=== PATIENT | male | born 1940 | race Caucasian/White ===

== ENCOUNTER → 2022-01-25 | Outpatient (CLI) | payer BC, SELFPAY ==
[2022-01-25 14:06] LABS: Anion Gap 9 (5-15); BUN 47 mg/dL (7-18); BUN/Creat Ratio 21.7 RATIO (10-20); Calcium,Total 9.2 mg/dL (8.5-10.1); Chloride 104 mmol/L (98-107); Creatinine, Serum 2.17 mg/dL (0.70-1.30); EST Glomerular Filtration Rate 31 mL/min (>60); Est Glom Filt Rate - Afr Amer 38 mL/min (>60); Glucose 147 mg/dL (74-106); Potassium 4.3 mmol/L (3.5-5.1); Sodium Level 140 mmol/L (136-145)
== END | disposition home or self-care (01) ==
LOC: HHLAB 13:39
PROVIDERS: PCP Preventive Medicine Occupational Medicine; Referring Provider Preventive Medicine Occupational Medicine; Visit Provider Preventive Medicine Occupational Medicine
DX: E11.621 Type 2 diabetes mellitus with foot ulcer (principal); L97.511 Non-pressure chronic ulcer of other part of right foot limited to breakdown of skin; L03.115 Cellulitis of right lower limb
CPT/HCPCS: 80048

== ENCOUNTER 2022-01-28 13:45 | Outpatient (RCR) | payer BC, SELFPAY ==
[2022-01-14 13:27] VITALS: BP 124/62; PULSE 67; TEMP 36.1
--- NOTE | 2022-01-14 15:21 | HP.PCM_ITS ---
History of Present Illness Date of Service: 01/14/22 Chief Complaint: Swelling of legs and feet with open sores on lower legs b ilaterally History of Wound: Patient is 82 year old male who presents today for evaluation of sores that he has on his lower legs bilaterally and his bilateral lower leg edema. He states he has had these sores awhile. His states that he refuses to wear any type of compression and he has had the sores at least a few months. They haven't been putting much on them. His PCP referred him to the wound center for further evaluation. 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 He is unsure if he had CHF. He has had severe edema of his lower legs for the past couple years. He doesn't like to wear compression because it is difficult to wear shoes. He is wearing special shoes with velcro and his feet barely fit into them. He was hospitalized at [facility] [place] for a toe infection a couple months and he saw Dr. Fairchild there. He denies being told that he has lymphedema. He sleeps in a chair at home because it hurts his back to lay flat. Today he denies fever, chills, nausea, vomiting. He states his appetite is good. Progress of Wound: He has several areas on his legs bilaterally that have superficial ulcers that are weepy. These appear to be from his significant edema/lymphedema. He has ulcers on his left posterior superior leg and left posterior inferior leg, left anterior leg, right lateral ankle and he has an excoriated area on his buttock. [facility] Medical History History of malignant melanoma HTN (hypertension) Home Medications allopurinol 100 mg tablet 01/14/22 [History Last Taken Unknown] ascorbic acid (vitamin C) 500 mg tablet (Vitamin C) 500 mg PO BID 01/14/22 [History Last Taken Unknown] aspirin 81 mg tablet 81 mg PO DAILY 01/14/22 [History Last Taken Unknown] carvedilol 25 mg tablet 25 mg PO BID 01/14/22 [History Last Taken Unknown] doxazosin 8 mg tablet 8 mg PO DAILY 01/14/22 [History Last Taken Unknown] doxazosin 8 mg tablet mg 01/14/22 [History Last Taken Unknown] famotidine 40 mg tablet 40 mg PO BID 01/14/22 [History Last Taken Unknown] furosemide 40 mg/4 mL oral solution 20 mg PO BID 01/14/22 [History Last Taken Unknown] glucosamine-chondroitin 250 mg-200 mg tablet (Osteo Bi-Flex) 2 tab PO TID 01/14/22 [History Last Taken Unknown] insulin glargine 100 unit/mL subcutaneous cartridge 10 unit subcut BID 01/14/22 [History Last Taken Unknown] isosorbide dinitrate 40 mg capsule,extended release mg PO 01/14/22 [History Last Taken Unknown] levothyroxine 88 mcg/mL oral solution 88 mcg PO DAILY 01/14/22 [History Last Taken Unknown] losartan 100 mg-hydrochlorothiazide 25 mg tablet 1 tab PO DAILY 01/14/22 [History Last Taken Unknown] metformin 500 mg tablet 500 mg PO BID 01/14/22 [History Last Taken Unknown] ckfpuvic-xba-fgdnt acid 0.4 mg-lycopene 300 mcg-lutein 250 mcg tablet (Spectravite Adult 50 Plus) 1 tab PO DAILY 01/14/22 [History Last Taken Unknown] potassium chloride 20 mEq/15 mL oral liquid 01/14/22 [History Last Taken Unknown] simvastatin 20 mg tablet 20 mg PO DAILY 01/14/22 [History Last Taken Unknown] vitamin B complex 1 cap PO DAILY 01/14/22 [History Last Taken Unknown] Family History other other Surgical History History of cholecystectomy History of right knee joint replacement S/P CABG x 4 Prior Cardiac Testing/Procedures Prior Cardiac Testing/Procedures: CABG (x 4 2003) ROS Constitutional Constitutional: Denies chills, fever(s) or frequent falls Eyes Eyes: Reports requires corrective lenses ENT HEENT: Reports systems reviewed and no addt'l complaints, except as documented Cardiovascular Cardiovascular: Reports edema; Denies chest pain or chest pain with activity Respiratory/Chest Respiratory/Chest: Denies chest congestion, chest tightness or shortness of breath at rest Gastrointestinal Gastrointestinal: Denies diarrhea, nausea or vomiting Musculoskeletal Musculoskeletal: Reports back pain and stiffness Integumentary Integumentary: Reports wounds Neurologic Neurologic: Denies frequent falls Psychiatric Psychiatric: Reports none Vital Signs Vital Signs Vital Signs: 01/14/22 13:27 Temperature 97.0 F L Temperature Source Temporal Pulse Rate 67 Blood Pressure 124/62 H Blood Pressure Mean 82 Blood Pressure Source Monitor Blood Pressure Position Sitting Blood Pressure Location Right Arm Physical Exam Const alert and oriented x3 General Appearance: cooperative Orientation / Consciousness: awake HEENT normocephalic Lymph Lymphatic: lymphedema severe Resp normal respiratory effort and normal air movement Auscultation: clear to auscultation bilaterally Cardio regular rate and regular rhythm Peripheral Pulses: dorsalis pedis pulses present bilateral 1+ GI normal to inspection, nondistended, normoactive bowel sounds, soft to palpation and non-tender Back/Spine Back/Spine Narrative: Has back pain with movement, has difficulty laying flat due to pain Extremity normal capillary refill General Extremity: edema bilateral lower extremity (severe pitting edema/lymphed maryanne >+4. Ankle skin hangs over feet due to swelling) Details: severe (Severe bilateral lower extremity edema/lymphedema, legs are milding weeping. ) Skin Wound Narrative: He has several areas on his legs bilaterally that have superficial ulcers that are weepy. These appear to be from his significant edema/lymphedema. He has ulcers on his left posterior superior leg and left posterior inferior leg, left anterior leg, right lateral ankle and he has an excoriated area on his buttock. Neuro oriented x3 Psych thought process normal Debridement Note Debridement Note Wound debrided: posterior superior ulcer Laterality: Left Type of Debridement: Excisional debridement Anesthesia Used: 5% Lidocaine Gel Depth: Down to and including healthy tissue and in the subcutaneous layer Percentage of wound debrided: 100 Instrument Used: 5mm curette Tissue Removed: Non viable tissue and slough Severity: Fat Layer Exposed Amount of bleeding with debridement: Mild Bleeding Controlled with: Pressure Patient tolerated procedure: Patient tolerated procedure well Post-Debridement Measurements and Additional Note: Post-Debridement Measurements/Treatment KIRSTIN - Nurse 1 - General Ulcer Assessment Start: 01/14/22 13:26 Freq: Status: Active Protocol: JUANITO Activity Type Activity Date Activity User E-Sign Co-Sign Detail Recorded Client Recorded Date Recorded By Document 01/14/22 13:27 YOEL [id number] 01/14/22 13:41 YOEL 01/14/22 13:27 - Today's Visit Information Type of service Initial Visit Arrival Mode Ambulatory Patient Identification Verified (Name & Yes ) Vital Signs Temperature (97.8 F-99.1 F) 97.0 F L Temperature Source Temporal Pulse Rate (60-100) 67 Pulse Location Monitor Blood Pressure (90/60-120/80) 124/62 H Blood Pressure Mean 82 Source Monitor Position Sitting Blood Pressure Location Right Arm History Since Last Visit- (Skip if this is Patient's initial visit) Have you changed medications since your No last visit? Any new allergies or adverse reactions No Had a fall/change in ADL's that may No increase risk of falls Signs or symptoms of abuse and/or No neglect since last visit Have you been in the hospital since your No last visit? Has dressing in place as prescribed No Has compression in place as prescribed N/A Has offloadiing in place as prescribed N/A Experienced any changes in pain level or No management Left Footwear Regular Shoe Right Footwear Regular Shoe Pain Scale: 0-10 Numeric Is Patient Pain Free? Yes WC - Nurse 1 - General Ulcer Measurement Start: 01/14/22 13:26 Freq: Status: Active Protocol: Activity Type Activity Date Activity User E-Sign Co-Sign Detail Recorded Client Recorded Date Recorded By Document 01/14/22 13:27 YOEL [id number] 01/14/22 13:41 YOEL 01/14/22 13:27 Wound Center Nurse 1 #2 Left post lower extremity superior -Current Size (cm) - Length 3.6 -Current Size (cm) - Width 3 -Current Size (cm) - Depth 0.1 -Total Square Cm 10.8 -Exudate Amt Small -Exudate Type Serosanguineous -Wound Margin Distinct, Outline Attached -Granulation Amt Medium (34-66%) -Granulation Quality H. Rivera Colon -Necrosis Amt Small (1-33%) -Necrotic Tissue Type Adherent Slough -Texture (Felisa-wound Skin Appearance) Assessed, Scarring -Moisture (Felisa-wound Skin Appearance) No Abnormality, Assessed -Color (Felisa-wound Skin Appearance) No Abnormality, Assessed -Temperature (Felisa-wound Skin No Abnormality Appearance) (Pt Warm) -Tenderness on Palpation (Felisa-wound No Skin Appearance) -Ulcer Cleansing Rinsed/ Irrigated with Saline -Foul Odor after Cleansing No -Anesthetic Used 5% Lidocaine Gel #1 Left lateral moreira -Current Size (cm) - Length 1.6 -Current Size (cm) - Width 5 -Current Size (cm) - Depth 0.1 -Total Square Cm 8.0 -Exudate Amt Small -Exudate Type Serosanguineous -Wound Margin Distinct, Outline Attached -Granulation Amt Medium (34-66%) -Granulation Quality H. Rivera Colon -Necrosis Amt None Present (0 %) -Necrotic Tissue Type Adherent Slough -Texture (Felisa-wound Skin Appearance) Assessed, Scarring -Moisture (Felisa-wound Skin Appearance) No Abnormality, Assessed -Color (Felisa-wound Skin Appearance) No Abnormality, Assessed -Temperature (Felisa-wound Skin No Abnormality Appearance) (Pt Warm) -Tenderness on Palpation (Felisa-wound No Skin Appearance) -Ulcer Cleansing Rinsed/ Irrigated with Saline -Foul Odor after Cleansing No -Anesthetic Used 5% Lidocaine Gel Right Calf (cm) 47 Right Ankle (cm) 36 Left Calf (cm) 47.5 Left Ankle (cm) 37.5 WC - Nurse 2 - General Ulcer CM Notes Start: 01/14/22 13:26 Freq: Status: Active Protocol: Activity Type Activity Date Activity User E-Sign Co-Sign Detail Recorded Client Recorded Date Recorded By Document 01/14/22 13:59 [id number] 01/14/22 14:22 01/14/22 13:59 Wound Center Nurse 2 4-left posterior inferior leg -Time 14:09 -Correct Patient Yes -Correct Side, Site, Position Yes -Correct Procedure Yes -Procedure Performed Yes -Type of Procedure Debridement -Clinical Debridement Subcutaneous -Tissue Removed Subcutaneous -Post Debridement (cm) - Length 3.5 -Post Debridement (cm) - Width 5.5 -Post Debridement (cm) - Depth 0.1 -Total Square (Post) (cm) 19.25 -Area of Debridement (cm) - Length 3.5 -Area of Debridement (cm) - Width 5.5 -Total Square (Area) (cm) 19.25 -Tunneling No -Undermining/Tunneling No -Circular Undermining No -Wound/Ulcer Outcome Not Healed -Ulcer Cleansing Rinsed/ Irrigated with Saline -Foul Odor after Cleansing No -Bioengineered Tissue No -Bleeding Controlled with Pressure -Treatment Response Procedure Tolerated Well -Offloading No -Debridement - Subq, 1st 20sq cm No 3-right lateral ankle -Time 14:10 -Correct Patient Yes -Correct Side, Site, Position Yes -Correct Procedure Yes -Procedure Performed Yes -Type of Procedure Debridement -Clinical Debridement Epidermis / Dermis -Tissue Removed Epidermis, Dermis -Post Debridement (cm) - Length 4.0 -Post Debridement (cm) - Width 3.5 -Post Debridement (cm) - Depth 0.1 -Total Square (Post) (cm) 14.00 -Area of Debridement (cm) - Length 4.0 -Area of Debridement (cm) - Width 3.5 -Total Square (Area) (cm) 14.00 -Tunneling No -Undermining/Tunneling No -Circular Undermining No -Wound/Ulcer Outcome Not Healed -Ulcer Cleansing Rinsed/ Irrigated with Saline -Foul Odor after Cleansing No -Bioengineered Tissue No -Bleeding Controlled with Pressure -Treatment Response Procedure Tolerated Well -Offloading No -Debridement - Open, 1st 20sq cm Yes #2 Left post lower extremity superior -Time 14:04 -Correct Patient Yes -Correct Side, Site, Position Yes -Correct Procedure Yes -Procedure Performed Yes -Type of Procedure Debridement -Clinical Debridement Subcutaneous -Tissue Removed Subcutaneous -Post Debridement (cm) - Length 4.0 -Post Debridement (cm) - Width 3.6 -Post Debridement (cm) - Depth 0.1 -Total Square (Post) (cm) 14.40 -Area of Debridement (cm) - Length 4.0 -Area of Debridement (cm) - Width 3.6 -Total Square (Area) (cm) 14.40 -Tunneling No -Undermining/Tunneling No -Circular Undermining No -Wound/Ulcer Outcome Not Healed -Ulcer Cleansing Rinsed/ Irrigated with Saline -Foul Odor after Cleansing No -Bioengineered Tissue No -Bleeding Controlled with Pressure -Treatment Response Procedure Tolerated Well -Offloading No -Debridement - Subq, 1st 20sq cm No #1 Left lateral moreira -Time 14:16 -Correct Patient Yes -Correct Side, Site, Position Yes -Correct Procedure Yes -Procedure Performed Yes -Type of Procedure Debridement -Clinical Debridement Epidermis / Dermis -Tissue Removed Epidermis, Dermis -Post Debridement (cm) - Length 3.3 -Post Debridement (cm) - Width 2.3 -Post Debridement (cm) - Depth 0.1 -Total Square (Post) (cm) 7.59 -Area of Debridement (cm) - Length 3.3 -Area of Debridement (cm) - Width 2.3 -Total Square (Area) (cm) 7.59 -Tunneling No -Undermining/Tunneling No -Circular Undermining No -Wound/Ulcer Outcome Not Healed -Ulcer Cleansing Rinsed/ Irrigated with Saline -Foul Odor after Cleansing No -Bioengineered Tissue No -Bleeding Controlled with Pressure -Treatment Response Procedure Tolerated Well -Offloading No -Debridement - Open, 1st 20sq cm No Pain Scale: 0-10 Numeric Is Patient Pain Free? Yes Additional Wound Wound debrided: posterior inferior ulcer Laterality: Left Type of Debridement: Selective debridement Anesthesia Used: 5% Lidocaine Gel Depth: Down to and including healthy tissue and in the subcutaneous layer Percentage of wound debrided: 80 Tissue Removed: Removed moistened non viable tissue with gauze, very superfical Severity: Limited To Skin Breakdown Amount of bleeding with debridement: None Patient tolerated procedure: Patient tolerated procedure well Additional Wound Wound debrided: anterior leg ulcer Laterality: Left Type of Debridement: Excisional debridement Anesthesia Used: 5% Lidocaine Gel Depth: Down to and including healthy tissue and in the subcutaneous layer Percentage of wound debrided: 100 Instrument Used: 5mm curette Tissue Removed: Non viable tissue and slough Severity: Fat Layer Exposed Amount of bleeding with debridement: Mild Bleeding Controlled with: Pressure and Compression and gauze Patient tolerated procedure: Patient tolerated procedure well Additional Wound Wound debrided: Lateral ankle ulcer Laterality: Right Type of Debridement: Selective debridement Anesthesia Used: 5% Lidocaine Gel Depth: Down to and including healthy tissue and in the subcutaneous layer Percentage of wound debrided: 80 Tissue Removed: Removed non viable tissue with pickups and gauze over 80%, superficial ulce Severity: Limited To Skin Breakdown Amount of bleeding with debridement: Mild Bleeding Controlled with: Pressure Patient tolerated procedure: Patient tolerated procedure well Additional Wound Wound debrided: Buttock excoriation- no debridement Charges/Coding Addendum Addendum: [id number] and [id number] x 1 (selective debridement) for left posterior inferior leg and right lateral ankle Visit Charges Office Visits / Consults: 88896 OV L3 New (25 modifier) Procedures Integumentary [id number]: [id number] Madyson subq tissue 20 sq cm/< (Left posterior superior leg, left anterior leg,) Add On Codes: [id number] Madyson subq tissue add-on Assessment/Plan Assessment/Plan (1) Ulcer of left lower leg: CODE(S): L97.929 - Non-pressure chronic ulcer of unspecified part of left lower leg with unspecified severity (2) Diabetic ulcer of right ankle: CODE(S): E11.622 - Type 2 diabetes mellitus with other skin ulcer; L97.319 - Non-pressure chronic ulcer of right ankle with unspecified severity (3) Edema of both lower extremities: CODE(S): R60.0 - Localized edema (4) Lymphedema of both lower extremities: CODE(S): I89.0 - Lymphedema, not elsewhere classified (5) Buttock abrasion: CODE(S): S30.810A - Abrasion of lower back and pelvis, initial encounter (6) Diabetes mellitus type 2 in obese: CODE(S): E11.69 - Type 2 diabetes mellitus with other specified complication; E66.9 - Obesity, unspecified PLAN: Patient was evaluated at the wound healing center today. He has several ulcers that had either a subcutaneous or selective debridement performed today, which he tolerated well. Wound care to all the ulcers is collagen hydrogel covered with dry gauze daily after washing legs with soap and water and drying well. Stressed the importance of compression. Patient has severe lower extremity edema bilaterally. It is actually more of a lymphedema than just pitting edema. Patient states he does not want to wear compression because he is unable to get his shoes on if he does. We discussed the importance of having compression to help decrease some of his edema. He sleeps in a chair because of his back problems, therefore that also contributes to his edema. Stressed the importance of elevating legs and lying flat several times throughout the day to help decrease the swelling. Will place GLADYS wraps on bilateral feet/ankles and lower legs to help with compression. Encourage elevate legs. He is not really interested in wearing compression, but I stressed the importance of wearing it because these ulcers are caused from the severity of his edema. Instructed him that if he wears compression, it may increase how much he needs to void as he excretes the fluid. Will order venous and arterial studies to evaluate blood flow to help determine the type of compression. Will consider referring him to OT for the lymphedema specialist, after the vascular studies obtained. Follow up one week.
[2022-01-21 14:07] VITALS: BP 137/65; PULSE 69; RESP 20; TEMP 36.6
--- NOTE | 2022-01-21 16:38 | PCM.WC.PN ---
History of Present Illness Date of Service: 01/21/22 Chief Complaint: Swelling of legs and feet with open sores on lower legs bilaterally History of Wound: Patient is 82 year old male who presents today for evaluation of sores that he has on his lower legs bilaterally and his bilateral lower leg edema. He states he has had these sores awhile. His states that he refuses to wear any type of compression and he has had the sores at least a few months. They haven't been putting much on them. His PCP referred him to the wound center for further evaluation. 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 He is unsure if he had CHF. He has had severe edema of his lower legs for the past couple years. He doesn't like to wear compression because it is difficult to wear shoes. He is wearing special shoes with velcro and his feet barely fit into them. He was hospitalized at [facility] for a toe infection a couple months and he saw Dr. Fairchild there. He denies being told that he has lymphedema. He sleeps in a chair at home because it hurts his back to lay flat. Wound care - Collagen hydrogel to the ulcerated areas covered with gauze daily. MANDEEP wraps for compression. He is wearing post surgical shoes so his feet can have compression and fit into a shoe. Today he denies fever, chills, nausea, vomiting. He states his appetite is good. Progress of Wound: He has several areas on his legs bilaterally that have superficial ulcers that have mildly improved. He is wearing the compression and his legs and feet bilaterally have less edema. He has ulcers on his left posterior superior leg and left posterior inferior leg, left anterior leg, right lateral ankle and he has an excoriated area on his buttock. Objective Data Objective Data Vital Signs: Vital Signs Temp Pulse Resp BP 98 F 69 20 H 137/65 H 01/21/22 14:07 01/21/22 14:07 01/21/22 14:07 01/21/22 14:07 Charges/Coding Procedures Integumentary [id number]: [id number] Madyson subq tissue 20 sq cm/< Add On Codes: [id number] Madyson subq tissue add-on (x1) Physical Exam Const alert and oriented x3 General Appearance: cooperative Orientation / Consciousness: awake HEENT normocephalic Lymph Lymphatic: lymphedema severe Resp normal respiratory effort Cardio regular rate GI GI Narrative: Abdomen appears distended, but patient states it is not. Now that he is wearing compression on lower extremities, this could be increased edema in abdomen. Extremity normal capillary refill General Extremity: edema bilateral lower extremity (severe pitting edema/lymphedema +4, but has decreased since starting to wear MANDEEP wraps for compression) Details: severe (Severe bilateral lower extremity edema/lymphedema, legs are milding weeping. ) Skin Wound Narrative: He has ulcers on his left posterior superior leg and left posterior inferior leg, left anterior leg and right lateral ankle. The excoriated area on his buttock has improved. Psych thought process normal Appearance: grossly normal Debridement Note Debridement Note Wound debrided: posterior superior ulcer Laterality: Left Type of Debridement: Excisional debridement Anesthesia Used: 5% Lidocaine Gel Depth: Down to and including healthy tissue and in the subcutaneous layer Percentage of wound debrided: 100 Instrument Used: 5mm curette Tissue Removed: Non viable tissue and slough Severity: Fat Layer Exposed Amount of bleeding with debridement: Mild Bleeding Controlled with: Pressure Patient tolerated procedure: Patient tolerated procedure well Post-Debridement Measurements and Additional Note: Post-Debridement Measurements/Treatment - Nurse 1 - General Ulcer Assessment Start: 01/14/22 13:26 Freq: Status: Active Protocol: JUANITO Activity Type Activity Date Activity User E-sign Co-sign Detail Recorded Client Recorded Date Recorded By Document 01/14/22 13:27 KR [id number] 01/14/22 13:41 KR Document 01/21/22 14:07 DL [id number] 01/21/22 14:23 DL 01/14/22 01/21/22 13:27 14:07 - Today's Visit Information Type of service Initial Visit Follow-up Visit (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/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 ) Arrival Mode Ambulatory Ambulatory Transfer Assistance None Patient Identification Verified (Name & Yes Yes ) Patient Requires Transmission-Based No Precautions Vital Signs Temperature (97.8 F-99.1 F) 97.0 F L 98 F Temperature Source Temporal Temporal Pulse Rate (60-100) 67 69 Pulse Location Monitor Monitor Respiratory Rate (12-18) 20 H Respiratory rate source Observation Blood Pressure (90/60-120/80) 124/62 H 137/65 H Blood Pressure Mean (mm Hg) 82 89 Source Monitor Monitor Position Sitting Blood Pressure Location Right Arm History Since Last Visit- (Skip if this is Patient's initial visit) Have you changed medications since your No No last visit? Any new allergies or adverse reactions No No Had a fall/change in ADL's that may No No increase risk of falls Signs or symptoms of abuse and/or No No neglect since last visit Have you been in the hospital since your No No last visit? Has dressing in place as prescribed No Yes Has compression in place as prescribed N/A Yes Has offloadiing in place as prescribed N/A Yes Experienced any changes in pain level or No No management Left Footwear Regular Shoe Surgical Shoe with pressure relief insole Right Footwear Regular Shoe Surgical Shoe with pressure relief insole Pain Scale: 0-10 Numeric Is Patient Pain Free? Yes Yes WC - Nurse 1 - General Ulcer Measurement Start: 01/14/22 13:26 Freq: Status: Active Protocol: Activity Type Activity Date Activity User E-sign Co-sign Detail Recorded Client Recorded Date Recorded By Document 01/14/22 13:27 KR [id number] 01/14/22 13:41 KR Document 01/21/22 14:07 DL [id number] 01/21/22 14:23 DL 01/14/22 01/21/22 13:27 14:07 Wound Center Nurse 1 4-left posterior inferior leg -Current Size (cm) - Length 0.5 -Current Size (cm) - Width 0.5 -Current Size (cm) - Depth 0.1 -Total Square Cm 0.25 -Photo Taken No -Exudate Amt Small -Wound Margin Flat & Intact -Granulation Amt Small (1-33%) -Granulation Quality [place] -Necrotic Tissue Type Adherent Slough -Structure Exposed N/A -Texture (Felisa-wound Skin Appearance) Localized Edema ,Scarring -Moisture (Felisa-wound Skin Appearance) Dry/Scaly -Color (Felisa-wound Skin Appearance) Hemosiderin Staining -Temperature (Felisa-wound Skin No Abnormality Appearance) (Pt Warm) -Tenderness on Palpation (Felisa-wound No Skin Appearance) -Ulcer Cleansing Rinsed/ Irrigated with Saline -Foul Odor after Cleansing No -Anesthetic Used 5% Lidocaine Gel 3-right lateral ankle -Current Size (cm) - Length 3 -Current Size (cm) - Width 4.4 -Current Size (cm) - Depth 0.1 -Total Square Cm 13.2 -Photo Taken No -Exudate Amt Small -Exudate Type Serosanguineous -Wound Margin Thickened -Granulation Amt Large (67-100%) -Granulation Quality Pale,[place] -Necrosis Amt Small (1-33%) -Necrotic Tissue Type Adherent Slough -Structure Exposed N/A -Texture (Felisa-wound Skin Appearance) Localized Edema ,Scarring -Moisture (Felisa-wound Skin Appearance) No Abnormality -Color (Felisa-wound Skin Appearance) No Abnormality -Temperature (Felisa-wound Skin No Abnormality Appearance) (Pt Warm) -Tenderness on Palpation (Felisa-wound No Skin Appearance) -Ulcer Cleansing Rinsed/ Irrigated with Saline -Foul Odor after Cleansing No -Anesthetic Used 4% Lidocaine Solution #2 Left post lower extremity superior -Current Size (cm) - Length 3.6 0.1 -Current Size (cm) - Width 3 0.1 -Current Size (cm) - Depth 0.1 0.1 -Total Square Cm 10.8 0.01 -Photo Taken No -Exudate Amt Small None Present -Exudate Type Serosanguineous -Wound Margin Distinct, Thickened Outline Attached -Granulation Amt Medium (34-66%) Large (67-100%) -Granulation Quality [place] Pale -Necrosis Amt Small (1-33%) None Present (0 %) -Necrotic Tissue Type Adherent Slough -Structure Exposed N/A -Texture (Felisa-wound Skin Appearance) Assessed, Localized Edema Scarring ,Scarring -Moisture (Felisa-wound Skin Appearance) No Abnormality, Dry/Scaly Assessed -Color (Felisa-wound Skin Appearance) No Abnormality, Hemosiderin Assessed Staining -Temperature (Felisa-wound Skin No Abnormality No Abnormality Appearance) (Pt Warm) (Pt Warm) -Tenderness on Palpation (Felisa-wound No No Skin Appearance) -Ulcer Cleansing Rinsed/ Rinsed/ Irrigated with Irrigated with Saline Saline -Foul Odor after Cleansing No No -Anesthetic Used 5% Lidocaine 4% Lidocaine Gel Solution #1 Left lateral moreira -Current Size (cm) - Length 1.6 0.1 -Current Size (cm) - Width 5 0.1 -Current Size (cm) - Depth 0.1 0.1 -Total Square Cm 8.0 0.01 -Photo Taken No -Exudate Amt Small None Present -Exudate Type Serosanguineous -Wound Margin Distinct, Thickened Outline Attached -Granulation Amt Medium (34-66%) Large (67-100%) -Granulation Quality [place] Pale -Necrosis Amt None Present (0 None Present (0 %) %) -Necrotic Tissue Type Adherent Slough -Structure Exposed N/A -Texture (Felisa-wound Skin Appearance) Assessed, Localized Edema Scarring ,Scarring -Moisture (Felisa-wound Skin Appearance) No Abnormality, Dry/Scaly Assessed -Color (Felisa-wound Skin Appearance) No Abnormality, Hemosiderin Assessed Staining -Temperature (Felisa-wound Skin No Abnormality No Abnormality Appearance) (Pt Warm) (Pt Warm) -Tenderness on Palpation (Felisa-wound No No Skin Appearance) -Ulcer Cleansing Rinsed/ Rinsed/ Irrigated with Irrigated with Saline Saline -Foul Odor after Cleansing No No -Anesthetic Used 5% Lidocaine 5% Lidocaine Gel Gel Right Calf (cm) 47 44 Right Ankle (cm) 36 34 Left Calf (cm) 47.5 50.5 Left Ankle (cm) 37.5 34.5 WC - Nurse 2 - General Ulcer CM Notes Start: 01/14/22 13:26 Freq: Status: Active Protocol: Activity Type Activity Date Activity User E-sign Co-sign Detail Recorded Client Recorded Date Recorded By Document 01/14/22 13:59 [id number] 01/14/22 14:22 JF Edit Result 01/14/22 13:59 JF (1) [id number] 01/15/22 07:21 PL Edit Result 01/14/22 13:59 JF (2) [id number] 01/15/22 07:30 PL Document 01/21/22 15:00 [id number] 01/21/22 15:15 JF (1) 4-left posterior inferior leg - Debridement, SubQ, ea addt'l 20sq cm => 1 or part thereof 3-right lateral ankle - Debridement, Open, ea addt'l 20sq cm => 1 or part thereof (2) #2 Left post lower extremity superior - Debridement - Subq, 1st 20sq cm No => Yes 01/14/22 01/21/22 13:59 15:00 Wound Center Nurse 2 4-left posterior inferior leg -Time 14:09 15:09 -Correct Patient Yes Yes -Correct Side, Site, Position Yes Yes -Correct Procedure Yes Yes -Procedure Performed Yes Yes -Type of Procedure Debridement Debridement -Clinical Debridement Subcutaneous Subcutaneous -Tissue Removed Subcutaneous Subcutaneous -Post Debridement (cm) - Length 3.5 0.8 -Post Debridement (cm) - Width 5.5 0.5 -Post Debridement (cm) - Depth 0.1 0.1 -Total Square (Post) (cm) 19.25 0.40 -Area of Debridement (cm) - Length 3.5 0.8 -Area of Debridement (cm) - Width 5.5 0.5 -Total Square (Area) (cm) 19.25 0.40 -Tunneling No No -Undermining/Tunneling No No -Circular Undermining No No -Wound/Ulcer Outcome Not Healed Not Healed -Ulcer Cleansing Rinsed/ Rinsed/ Irrigated with Irrigated with Saline Saline -Foul Odor after Cleansing No No -Bioengineered Tissue No No -Bleeding Controlled with Pressure Pressure -Treatment Response Procedure Procedure Tolerated Well Tolerated Well -Offloading No No -Debridement - Subq, 1st 20sq cm No Yes -Debridement, SubQ, ea addt'l 20sq cm 1 1 or part thereof 3-right lateral ankle -Time 14:10 15:03 -Correct Patient Yes Yes -Correct Side, Site, Position Yes Yes -Correct Procedure Yes Yes -Procedure Performed Yes Yes -Type of Procedure Debridement Debridement -Clinical Debridement Epidermis / Subcutaneous Dermis -Tissue Removed Epidermis, Subcutaneous Dermis -Post Debridement (cm) - Length 4.0 4.5 -Post Debridement (cm) - Width 3.5 5.5 -Post Debridement (cm) - Depth 0.1 0.1 -Total Square (Post) (cm) 14.00 24.75 -Area of Debridement (cm) - Length 4.0 4.5 -Area of Debridement (cm) - Width 3.5 5.5 -Total Square (Area) (cm) 14.00 24.75 -Tunneling No No -Undermining/Tunneling No No -Circular Undermining No No -Wound/Ulcer Outcome Not Healed Not Healed -Ulcer Cleansing Rinsed/ Rinsed/ Irrigated with Irrigated with Saline Saline -Foul Odor after Cleansing No No -Bioengineered Tissue No No -Bleeding Controlled with Pressure Pressure -Treatment Response Procedure Procedure Tolerated Well Tolerated Well -Offloading No No -Debridement - Open, 1st 20sq cm Yes -Debridement, Open, ea addt'l 20sq cm 1 or part thereof -Debridement - Subq, 1st 20sq cm No #2 Left post lower extremity superior -Time 14:04 15:10 -Correct Patient Yes Yes -Correct Side, Site, Position Yes Yes -Correct Procedure Yes Yes -Procedure Performed Yes Yes -Type of Procedure Debridement Debridement -Clinical Debridement Subcutaneous Subcutaneous -Tissue Removed Subcutaneous Subcutaneous -Post Debridement (cm) - Length 4.0 2.5 -Post Debridement (cm) - Width 3.6 3.4 -Post Debridement (cm) - Depth 0.1 0.1 -Total Square (Post) (cm) 14.40 8.50 -Area of Debridement (cm) - Length 4.0 2.5 -Area of Debridement (cm) - Width 3.6 3.4 -Total Square (Area) (cm) 14.40 8.50 -Tunneling No No -Undermining/Tunneling No No -Circular Undermining No No -Wound/Ulcer Outcome Not Healed Not Healed -Ulcer Cleansing Rinsed/ Rinsed/ Irrigated with Irrigated with Saline Saline -Foul Odor after Cleansing No No -Bioengineered Tissue No No -Bleeding Controlled with Pressure Pressure -Treatment Response Procedure Procedure Tolerated Well Tolerated Well -Offloading No No -Debridement - Subq, 1st 20sq cm Yes No #1 Left lateral moreira -Time 14:16 15:07 -Correct Patient Yes Yes -Correct Side, Site, Position Yes Yes -Correct Procedure Yes Yes -Procedure Performed Yes Yes -Type of Procedure Debridement Debridement -Clinical Debridement Epidermis / Subcutaneous Dermis -Tissue Removed Epidermis, Subcutaneous Dermis -Post Debridement (cm) - Length 3.3 2.8 -Post Debridement (cm) - Width 2.3 2.3 -Post Debridement (cm) - Depth 0.1 0.1 -Total Square (Post) (cm) 7.59 6.44 -Area of Debridement (cm) - Length 3.3 2.8 -Area of Debridement (cm) - Width 2.3 2.3 -Total Square (Area) (cm) 7.59 6.44 -Tunneling No No -Undermining/Tunneling No No -Circular Undermining No No -Wound/Ulcer Outcome Not Healed Not Healed -Ulcer Cleansing Rinsed/ Rinsed/ Irrigated with Irrigated with Saline Saline -Foul Odor after Cleansing No No -Bioengineered Tissue No No -Bleeding Controlled with Pressure Pressure -Treatment Response Procedure Procedure Tolerated Well Tolerated Well -Offloading No No -Debridement - Open, 1st 20sq cm No -Debridement - Subq, 1st 20sq cm No Pain Scale: 0-10 Numeric Is Patient Pain Free? Yes Yes WC - Nurse 3 - General Ulcer D/C NN Start: 01/14/22 13:26 Freq: Status: Active Protocol: Activity Type Activity Date Activity User E-sign Co-sign Detail Recorded Client Recorded Date Recorded By Document 01/21/22 15:22 DL [id number] 01/21/22 15:25 DL 01/21/22 15:22 Wound Care Nurse 3 4-left posterior inferior leg -Ulcer Cleansing Rinsed/ Irrigated with Saline -Foul Odor after Cleansing No -Primary Dressing Applied C Hydrogel ($) -Primary Dressing Covered/Secured with Dry Gauze & Roll Gauze, Secured with Tape 3-right lateral ankle -Ulcer Cleansing Rinsed/ Irrigated with Saline -Foul Odor after Cleansing No -Other Dressing hydrogel -Primary Dressing Covered/Secured with Dry Gauze & Roll Gauze, Secured with Tape #2 Left post lower extremity superior -Ulcer Cleansing Rinsed/ Irrigated with Saline -Foul Odor after Cleansing No -Other Dressing hydrogel -Primary Dressing Covered/Secured with Dry Gauze & Roll Gauze, Secured with Tape #1 Left lateral moreira -Ulcer Cleansing Rinsed/ Irrigated with Saline -Foul Odor after Cleansing No -Other Dressing hydrogel -Primary Dressing Covered/Secured with Dry Gauze & Roll Gauze, Secured with Tape Left -Compression Wrap Mandeep Wrap Right -Compression Wrap Mandeep Wrap Treatment Response Procedure Tolerated Well Pain Scale: 0-10 Numeric Is Patient Pain Free? Yes WC - Visit Discharge Discharge Condition Stable Ambulatory Status Ambulatory,Cane Facility Type Home Health Orders Sent Yes Additional Wound Wound debrided: posterior inferior ulcer Laterality: Left Type of Debridement: Selective debridement Anesthesia Used: 5% Lidocaine Gel Depth: Down to and including healthy tissue and in the subcutaneous layer Percentage of wound debrided: 80 Tissue Removed: Non viable tissue and slough Severity: Limited To Skin Breakdown Amount of bleeding with debridement: None Patient tolerated procedure: Patient tolerated procedure well Additional Wound Wound debrided: anterior leg ulcer Laterality: Left Type of Debridement: Excisional debridement Anesthesia Used: 5% Lidocaine Gel Depth: Down to and including healthy tissue and in the subcutaneous layer Percentage of wound debrided: 100 Instrument Used: 5mm curette Tissue Removed: Non viable tissue and slough Severity: Fat Layer Exposed Amount of bleeding with debridement: Mild Bleeding Controlled with: Pressure and Compression and gauze Patient tolerated procedure: Patient tolerated procedure well Additional Wound Wound debrided: Lateral ankle ulcer Laterality: Right Type of Debridement: Selective debridement Anesthesia Used: 5% Lidocaine Gel Depth: Down to and including healthy tissue and in the subcutaneous layer Percentage of wound debrided: 100 Instrument Used: 5mm curette Tissue Removed: Non viable tissue and slough Severity: Limited To Skin Breakdown Amount of bleeding with debridement: Mild Bleeding Controlled with: Pressure Patient tolerated procedure: Patient tolerated procedure well Assessment/Plan Assessment/Plan (1) Ulcer of left lower leg: CODE(S): L97.929 - Non-pressure chronic ulcer of unspecified part of left lower leg with unspecified severity (2) Diabetic ulcer of right ankle: CODE(S): E11.622 - Type 2 diabetes mellitus with other skin ulcer; L97.319 - Non-pressure chronic ulcer of right ankle with unspecified severity (3) Edema of both lower extremities: CODE(S): R60.0 - Localized edema (4) Lymphedema of both lower extremities: CODE(S): I89.0 - Lymphedema, not elsewhere classified (5) Buttock abrasion: CODE(S): S30.810A - Abrasion of lower back and pelvis, initial encounter (6) Diabetes mellitus type 2 in obese: CODE(S): E11.69 - Type 2 diabetes mellitus with other specified complication; E66.9 - Obesity, unspecified PLAN: Plan Patient was evaluated at the wound healing center today. Wound care to all the ulcers is collagen hydrogel covered with dry gauze daily after washing legs with soap and water and drying well. Stressed the importance of compression. Patient has severe lower extremity edema bilaterally but it has improved over the past week since he started wearing MANDEEP wraps for compression and post surgical shoes. His abdomen appears larger than last week. Patient denies this, but his states that she thinks it is larger. He does weigh himself every day to watch for sudden weight gain. Instructed her to start to measure his abdomen daily and record. My concern is that as we are improving the swelling in his lower extremities, we maybe shifting the fluid to his abdomen. He states that he did not have a huge increase in urination this past week, although his legs are much improved compared to last week. He sleeps in a chair because of his back problems, therefore that also contributes to his edema. Stressed the importance of elevating legs and lying flat several times throughout the day to help decrease the swelling. Ordered venous and arterial studies to evaluate blood flow to help determine the type of compression. They are scheduled for middle of February. Will consider referring him to OT for the lymphedema specialist, after the vascular studies obtained. Follow up one week.
[2022-01-28 13:44] VITALS: RESP 22; TEMP 37.1
--- NOTE | 2022-01-28 14:47 | PN.PCM_ITS ---
History of Present Illness Date of Service: 01/28/22 Chief Complaint: Swelling of legs and feet with open sores on lower legs b ilaterally History of Wound: Patient is 82 year old male who presents today for evaluation of sores that he has on his lower legs bilaterally and his bilateral lower leg edema. He states he has had these sores awhile. His states that he refuses to wear any type of compression and he has had the sores at least a few months. They haven't been putting much on them. His PCP referred him to the wound center for further evaluation. 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 He is unsure if he had CHF. He has had severe edema of his lower legs for the past couple years. He doesn't like to wear compression because it is difficult to wear shoes. He is wearing special shoes with velcro and his feet barely fit into them. He was hospitalized at [facility] for a toe infection a couple months and he saw Dr. Fairchild there. He denies being told that he has lymphedema. He sleeps in a chair at home because it hurts his back to lay flat. Wound care - Collagen hydrogel to the ulcerated areas covered with gauze daily. To his right second dorsal toe, place Nugauze in the crease of the dorsal toe then place collagen hydrogel onto the wound and cover with gauze. MANDEEP wraps for compression. He is wearing post surgical shoes so his feet can have compression and fit into a shoe. Today he denies fever, chills, nausea, vomiting. He states his appetite is good. Progress of Wound: He has several areas on his legs bilaterally that have superficial ulcers that have mildly improved. He now has a wound on his right dorsal second toe that is weeping. He is wearing the compression and his legs and feet bilaterally have less edema. He has ulcers on his left lateral leg, right lateral ankle and his left dorsal second toe and a new on on his right anterior leg that is beefy pink. Objective Data Objective Data Vital Signs: Vital Signs Temp Pulse Resp BP 98.8 F 69 22 H 137/65 H 01/28/22 13:44 01/21/22 14:07 01/28/22 13:44 01/21/22 14:07 Charges/Coding Procedures Integumentary [id number]: [id number] Madyson subq tissue 20 sq cm/< Physical Exam Const alert General Appearance: cooperative Orientation / Consciousness: awake HEENT normocephalic Lymph Lymphatic: lymphedema severe Resp normal respiratory effort Cardio regular rate GI GI Narrative: Abdomen appears distended, but patient states it is not. Now that he is wearing compression on lower extremities, this could be increased edema in abdomen. Extremity normal capillary refill General Extremity: edema bilateral lower extremity (severe pitting edema/lymphedema +4, but has decreased since starting to wear MANDEEP wraps for compression) Details: severe (Severe bilateral lower extremity edema/lymphedema, legs are milding weeping. ) Skin Wound Narrative: He has several areas on his legs bilaterally that have superficial ulcers that have mildly improved. He now has a wound on his right dorsal second toe that is weeping. He is wearing the compression and his legs and feet bilaterally have less edema. He has ulcers on his left lateral leg, right lateral ankle and his left dorsal second toe and a new one on his right anterior leg that is small and beefy pink. Psych thought process normal Appearance: grossly normal Debridement Note Debridement Note Wound debrided: lateral leg ulcer Laterality: Left Type of Debridement: Excisional debridement Anesthesia Used: 5% Lidocaine Gel Depth: Down to and including healthy tissue and in the subcutaneous layer Percentage of wound debrided: 100 Instrument Used: 3mm curette Tissue Removed: Non viable tissue and slough Severity: Fat Layer Exposed Amount of bleeding with debridement: Mild Bleeding Controlled with: Pressure Patient tolerated procedure: Patient tolerated procedure well Post-Debridement Measurements and Additional Note: Post-Debridement Measurements/Treatment - Nurse 1 - General Ulcer Assessment Start: 01/14/22 13:26 Freq: Status: Active Protocol: JUANITO Activity Type Activity Date Activity User E-sign Co-sign Detail Recorded Client Recorded Date Recorded By Document 01/14/22 13:27 KR [id number] 01/14/22 13:41 KR Document 01/21/22 14:07 DL [id number] 01/21/22 14:23 DL Document 01/28/22 13:44 DL [id number] 01/28/22 13:57 DL 01/14/22 01/21/22 01/28/22 13:27 14:07 13:44 - Today's Visit Information Type of service Initial Visit Follow-up Visit Follow-up Visit (Physician/INTERNET AND E BUSINESS PROJECT MANAGER (Physician/INTERNET AND E BUSINESS PROJECT MANAGER ) ) Arrival Mode Ambulatory Ambulatory Ambulatory Transfer Assistance None None Patient Identification Verified (Name & Yes Yes Yes ) Patient Requires Transmission-Based No No Precautions Vital Signs Temperature (97.8 F-99.1 F) 97.0 F L 98 F 98.8 F Temperature Source Temporal Temporal Temporal Pulse Rate (60-100) 67 69 Pulse Location Monitor Monitor Respiratory Rate (12-18) 20 H 22 H Respiratory rate source Observation Observation Blood Pressure (90/60-120/80) 124/62 H 137/65 H Blood Pressure Mean (mm Hg) 82 89 Source Monitor Monitor Position Sitting Blood Pressure Location Right Arm History Since Last Visit- (Skip if this is Patient's initial visit) Have you changed medications since your No No No last visit? Any new allergies or adverse reactions No No No Had a fall/change in ADL's that may No No No increase risk of falls Signs or symptoms of abuse and/or No No No neglect since last visit Have you been in the hospital since your No No last visit? Has dressing in place as prescribed No Yes Yes Has compression in place as prescribed N/A Yes Yes Has offloadiing in place as prescribed N/A Yes N/A Experienced any changes in pain level or No No Yes management Left Footwear Regular Shoe Surgical Shoe with pressure relief insole Right Footwear Regular Shoe Surgical Shoe with pressure relief insole Pain Scale: 0-10 Numeric Is Patient Pain Free? Yes Yes Yes - Nurse 1 - General Ulcer Measurement Start: 01/14/22 13:26 Freq: Status: Active Protocol: Activity Type Activity Date Activity User E-sign Co-sign Detail Recorded Client Recorded Date Recorded By Document 01/14/22 13:27 KR [id number] 01/14/22 13:41 KR Document 01/21/22 14:07 DL [id number] 01/21/22 14:23 DL Document 01/28/22 13:44 DL [id number] 01/28/22 13:57 DL 01/14/22 01/21/22 01/28/22 13:27 14:07 13:44 Wound Center Nurse 1 4-left posterior inferior leg -Current Size (cm) - Length 0.5 0.1 -Current Size (cm) - Width 0.5 0.1 -Current Size (cm) - Depth 0.1 0.1 -Total Square Cm 0.25 0.01 -Photo Taken No No -Exudate Amt Small None Present -Wound Margin Flat & Intact Flat & Intact -Granulation Amt Small (1-33%) Large (67-100%) -Granulation Quality [place] -Necrosis Amt None Present (0 %) -Necrotic Tissue Type Adherent Slough -Structure Exposed N/A N/A -Texture (Felisa-wound Skin Appearance) Localized Edema Scarring ,Scarring -Moisture (Felisa-wound Skin Appearance) Dry/Scaly Dry/Scaly -Color (Felisa-wound Skin Appearance) Hemosiderin Hemosiderin Staining Staining -Temperature (Felisa-wound Skin No Abnormality No Abnormality Appearance) (Pt Warm) (Pt Warm) -Tenderness on Palpation (Felisa-wound No No Skin Appearance) -Ulcer Cleansing Rinsed/ Rinsed/ Irrigated with Irrigated with Saline Saline -Foul Odor after Cleansing No No -Anesthetic Used 5% Lidocaine Gel 3-right lateral ankle -Current Size (cm) - Length 3 3.5 -Current Size (cm) - Width 4.4 4.5 -Current Size (cm) - Depth 0.1 0.1 -Total Square Cm 13.2 15.75 -Photo Taken No No -Exudate Amt Small Small -Exudate Type Serosanguineous Serosanguineous -Wound Margin Thickened Distinct, Outline Attached -Granulation Amt Large (67-100%) Medium (34-66%) -Granulation Quality Pale,[place] -Necrosis Amt Small (1-33%) Large (67-100%) -Necrotic Tissue Type Adherent Slough Adherent Slough -Structure Exposed N/A N/A -Texture (Felisa-wound Skin Appearance) Localized Edema Localized Edema ,Scarring -Moisture (Felisa-wound Skin Appearance) No Abnormality Dry/Scaly -Color (Felisa-wound Skin Appearance) No Abnormality Hemosiderin Staining -Temperature (Felisa-wound Skin No Abnormality No Abnormality Appearance) (Pt Warm) (Pt Warm) -Tenderness on Palpation (Felisa-wound No No Skin Appearance) -Ulcer Cleansing Rinsed/ Soap and Water Irrigated with Saline -Foul Odor after Cleansing No No -Anesthetic Used 4% Lidocaine 4% Lidocaine Solution Solution #2 Left post lower extremity superior -Current Size (cm) - Length 3.6 0.1 0.1 -Current Size (cm) - Width 3 0.1 0.1 -Current Size (cm) - Depth 0.1 0.1 0.1 -Total Square Cm 10.8 0.01 0.01 -Photo Taken No No -Undermining/Tunneling No -Exudate Amt Small None Present None Present -Exudate Type Serosanguineous Serosanguineous -Wound Margin Distinct, Thickened Flat & Intact Outline Attached -Granulation Amt Medium (34-66%) Large (67-100%) Large (67-100%) -Granulation Quality [place] Pale [place] -Necrosis Amt Small (1-33%) None Present (0 None Present (0 %) %) -Necrotic Tissue Type Adherent Slough -Structure Exposed N/A N/A -Texture (Felisa-wound Skin Appearance) Assessed, Localized Edema Scarring Scarring ,Scarring -Moisture (Felisa-wound Skin Appearance) No Abnormality, Dry/Scaly Dry/Scaly Assessed -Color (Felisa-wound Skin Appearance) No Abnormality, Hemosiderin Hemosiderin Assessed Staining Staining -Temperature (Felisa-wound Skin No Abnormality No Abnormality No Abnormality Appearance) (Pt Warm) (Pt Warm) (Pt Warm) -Tenderness on Palpation (Felisa-wound No No No Skin Appearance) -Ulcer Cleansing Rinsed/ Rinsed/ Rinsed/ Irrigated with Irrigated with Irrigated with Saline Saline Saline -Foul Odor after Cleansing No No No -Anesthetic Used 5% Lidocaine 4% Lidocaine 4% Lidocaine Gel Solution Solution #1 Left lateral moreira -Current Size (cm) - Length 1.6 0.1 0.1 -Current Size (cm) - Width 5 0.1 0.1 -Current Size (cm) - Depth 0.1 0.1 0.1 -Total Square Cm 8.0 0.01 0.01 -Photo Taken No No -Exudate Amt Small None Present None Present -Exudate Type Serosanguineous -Wound Margin Distinct, Thickened Flat & Intact Outline Attached -Granulation Amt Medium (34-66%) Large (67-100%) Small (1-33%) -Granulation Quality [place] Pale -Necrosis Amt None Present (0 None Present (0 Small (1-33%) %) %) -Necrotic Tissue Type Adherent Slough -Structure Exposed N/A Fat Layer Exposed -Texture (Felisa-wound Skin Appearance) Assessed, Localized Edema Scarring Scarring ,Scarring -Moisture (Felisa-wound Skin Appearance) No Abnormality, Dry/Scaly Dry/Scaly Assessed -Color (Felisa-wound Skin Appearance) No Abnormality, Hemosiderin Hemosiderin Assessed Staining Staining -Temperature (Felisa-wound Skin No Abnormality No Abnormality Appearance) (Pt Warm) (Pt Warm) -Tenderness on Palpation (Felisa-wound No No No Skin Appearance) -Ulcer Cleansing Rinsed/ Rinsed/ Rinsed/ Irrigated with Irrigated with Irrigated with Saline Saline Saline -Foul Odor after Cleansing No No Yes, Due to Product Use -Anesthetic Used 5% Lidocaine 5% Lidocaine 4% Lidocaine Gel Gel Solution Right Calf (cm) 47 44 Right Ankle (cm) 36 34 36 Left Calf (cm) 47.5 50.5 45 Left Ankle (cm) 37.5 34.5 34 WC - Nurse 2 - General Ulcer CM Notes Start: 01/14/22 13:26 Freq: Status: Active Protocol: Activity Type Activity Date Activity User E-sign Co-sign Detail Recorded Client Recorded Date Recorded By Document 01/14/22 13:59 [id number] 01/14/22 14:22 JF Edit Result 01/14/22 13:59 JF (1) [id number] 01/15/22 07:21 PL Edit Result 01/14/22 13:59 JF (2) [id number] 01/15/22 07:30 PL Document 01/21/22 15:00 [id number] 01/21/22 15:15 JF (1) 4-left posterior inferior leg - Debridement, SubQ, ea addt'l 20sq cm => 1 or part thereof 3-right lateral ankle - Debridement, Open, ea addt'l 20sq cm => 1 or part thereof (2) #2 Left post lower extremity superior - Debridement - Subq, 1st 20sq cm No => Yes 01/14/22 01/21/22 13:59 15:00 Wound Center Nurse 2 4-left posterior inferior leg -Time 14:09 15:09 -Correct Patient Yes Yes -Correct Side, Site, Position Yes Yes -Correct Procedure Yes Yes -Procedure Performed Yes Yes -Type of Procedure Debridement Debridement -Clinical Debridement Subcutaneous Subcutaneous -Tissue Removed Subcutaneous Subcutaneous -Post Debridement (cm) - Length 3.5 0.8 -Post Debridement (cm) - Width 5.5 0.5 -Post Debridement (cm) - Depth 0.1 0.1 -Total Square (Post) (cm) 19.25 0.40 -Area of Debridement (cm) - Length 3.5 0.8 -Area of Debridement (cm) - Width 5.5 0.5 -Total Square (Area) (cm) 19.25 0.40 -Tunneling No No -Undermining/Tunneling No No -Circular Undermining No No -Wound/Ulcer Outcome Not Healed Not Healed -Ulcer Cleansing Rinsed/ Rinsed/ Irrigated with Irrigated with Saline Saline -Foul Odor after Cleansing No No -Bioengineered Tissue No No -Bleeding Controlled with Pressure Pressure -Treatment Response Procedure Procedure Tolerated Well Tolerated Well -Offloading No No -Debridement - Subq, 1st 20sq cm No Yes -Debridement, SubQ, ea addt'l 20sq cm 1 1 or part thereof 3-right lateral ankle -Time 14:10 15:03 -Correct Patient Yes Yes -Correct Side, Site, Position Yes Yes -Correct Procedure Yes Yes -Procedure Performed Yes Yes -Type of Procedure Debridement Debridement -Clinical Debridement Epidermis / Subcutaneous Dermis -Tissue Removed Epidermis, Subcutaneous Dermis -Post Debridement (cm) - Length 4.0 4.5 -Post Debridement (cm) - Width 3.5 5.5 -Post Debridement (cm) - Depth 0.1 0.1 -Total Square (Post) (cm) 14.00 24.75 -Area of Debridement (cm) - Length 4.0 4.5 -Area of Debridement (cm) - Width 3.5 5.5 -Total Square (Area) (cm) 14.00 24.75 -Tunneling No No -Undermining/Tunneling No No -Circular Undermining No No -Wound/Ulcer Outcome Not Healed Not Healed -Ulcer Cleansing Rinsed/ Rinsed/ Irrigated with Irrigated with Saline Saline -Foul Odor after Cleansing No No -Bioengineered Tissue No No -Bleeding Controlled with Pressure Pressure -Treatment Response Procedure Procedure Tolerated Well Tolerated Well -Offloading No No -Debridement - Open, 1st 20sq cm Yes -Debridement, Open, ea addt'l 20sq cm 1 or part thereof -Debridement - Subq, 1st 20sq cm No #2 Left post lower extremity superior -Time 14:04 15:10 -Correct Patient Yes Yes -Correct Side, Site, Position Yes Yes -Correct Procedure Yes Yes -Procedure Performed Yes Yes -Type of Procedure Debridement Debridement -Clinical Debridement Subcutaneous Subcutaneous -Tissue Removed Subcutaneous Subcutaneous -Post Debridement (cm) - Length 4.0 2.5 -Post Debridement (cm) - Width 3.6 3.4 -Post Debridement (cm) - Depth 0.1 0.1 -Total Square (Post) (cm) 14.40 8.50 -Area of Debridement (cm) - Length 4.0 2.5 -Area of Debridement (cm) - Width 3.6 3.4 -Total Square (Area) (cm) 14.40 8.50 -Tunneling No No -Undermining/Tunneling No No -Circular Undermining No No -Wound/Ulcer Outcome Not Healed Not Healed -Ulcer Cleansing Rinsed/ Rinsed/ Irrigated with Irrigated with Saline Saline -Foul Odor after Cleansing No No -Bioengineered Tissue No No -Bleeding Controlled with Pressure Pressure -Treatment Response Procedure Procedure Tolerated Well Tolerated Well -Offloading No No -Debridement - Subq, 1st 20sq cm Yes No #1 Left lateral moreira -Time 14:16 15:07 -Correct Patient Yes Yes -Correct Side, Site, Position Yes Yes -Correct Procedure Yes Yes -Procedure Performed Yes Yes -Type of Procedure Debridement Debridement -Clinical Debridement Epidermis / Subcutaneous Dermis -Tissue Removed Epidermis, Subcutaneous Dermis -Post Debridement (cm) - Length 3.3 2.8 -Post Debridement (cm) - Width 2.3 2.3 -Post Debridement (cm) - Depth 0.1 0.1 -Total Square (Post) (cm) 7.59 6.44 -Area of Debridement (cm) - Length 3.3 2.8 -Area of Debridement (cm) - Width 2.3 2.3 -Total Square (Area) (cm) 7.59 6.44 -Tunneling No No -Undermining/Tunneling No No -Circular Undermining No No -Wound/Ulcer Outcome Not Healed Not Healed -Ulcer Cleansing Rinsed/ Rinsed/ Irrigated with Irrigated with Saline Saline -Foul Odor after Cleansing No No -Bioengineered Tissue No No -Bleeding Controlled with Pressure Pressure -Treatment Response Procedure Procedure Tolerated Well Tolerated Well -Offloading No No -Debridement - Open, 1st 20sq cm No -Debridement - Subq, 1st 20sq cm No Pain Scale: 0-10 Numeric Is Patient Pain Free? Yes Yes - Nurse 3 - General Ulcer D/C NN Start: 01/14/22 13:26 Freq: Status: Active Protocol: Activity Type Activity Date Activity User E-sign Co-sign Detail Recorded Client Recorded Date Recorded By Document 01/21/22 15:22 DL [id number] 01/21/22 15:25 DL Document 01/28/22 14:33 DL [id number] 01/28/22 14:40 DL 01/21/22 01/28/22 15:22 14:33 Wound Care Nurse 3 4-left posterior inferior leg -Ulcer Cleansing Rinsed/ Rinsed/ Irrigated with Irrigated with Saline Saline -Foul Odor after Cleansing No No -Primary Dressing Applied C Hydrogel ($) -Other Dressing healed -Primary Dressing Covered/Secured with Dry Gauze & Roll Gauze, Secured with Tape 3-right lateral ankle -Ulcer Cleansing Rinsed/ Irrigated with Saline -Foul Odor after Cleansing No -Other Dressing hydrogel -Primary Dressing Covered/Secured with Dry Gauze & Roll Gauze, Secured with Tape #2 Left post lower extremity superior -Ulcer Cleansing Rinsed/ Rinsed/ Irrigated with Irrigated with Saline Saline -Foul Odor after Cleansing No -Other Dressing hydrogel healed -Primary Dressing Covered/Secured with Dry Gauze & Roll Gauze, Secured with Tape #1 Left lateral moreira -Ulcer Cleansing Rinsed/ Not Cleansed Irrigated with Saline -Foul Odor after Cleansing No -Other Dressing hydrogel hydrogel -Primary Dressing Covered/Secured with Dry Gauze & Dry Gauze & Roll Gauze, Roll Gauze, Secured with Secured with Tape Tape Left -Compression Wrap Mandeep Wrap Mandeep Wrap Right -Compression Wrap Mandeep Wrap Mandeep Wrap Treatment Response Procedure Procedure Tolerated Well Tolerated Well Pain Scale: 0-10 Numeric Is Patient Pain Free? Yes Yes - Visit Discharge Discharge Condition Stable Stable Ambulatory Status Ambulatory,Cane Ambulatory,Cane Transportation Private Auto Facility Type Home Health Home Health Orders Sent Yes Yes Additional Wound Wound debrided: anterior leg ulcer Laterality: Right Type of Debridement: Excisional debridement Anesthesia Used: 5% Lidocaine Gel Depth: Down to and including healthy tissue and in the subcutaneous layer Percentage of wound debrided: 100 Instrument Used: 3mm curette Tissue Removed: Non viable tissue and slough Severity: Fat Layer Exposed Amount of bleeding with debridement: Mild Bleeding Controlled with: Pressure Patient tolerated procedure: Patient tolerated procedure well Additional Wound Wound debrided: second dorsal toe ulcer Laterality: Right Type of Debridement: Excisional debridement Anesthesia Used: 5% Lidocaine Gel Depth: Down to and including healthy tissue and in the subcutaneous layer Percentage of wound debrided: 100 Instrument Used: 5mm curette Tissue Removed: Non viable tissue and slough Severity: Fat Layer Exposed Amount of bleeding with debridement: Mild Bleeding Controlled with: Pressure and Compression and gauze Patient tolerated procedure: Patient tolerated procedure well Additional Wound Wound debrided: Lateral ankle ulcer Laterality: Right Type of Debridement: Excisional debridement Anesthesia Used: 5% Lidocaine Gel Depth: Down to and including healthy tissue and in the subcutaneous layer Percentage of wound debrided: 100 Instrument Used: 5mm curette Tissue Removed: Non viable tissue and slough Severity: Limited To Skin Breakdown Amount of bleeding with debridement: Mild Bleeding Controlled with: Pressure Patient tolerated procedure: Patient tolerated procedure well Assessment/Plan Assessment/Plan (1) Ulcer of left lower leg: CODE(S): L97.929 - Non-pressure chronic ulcer of unspecified part of left lower leg with unspecified severity (2) Diabetic ulcer of right ankle: CODE(S): E11.622 - Type 2 diabetes mellitus with other skin ulcer; L97.319 - Non-pressure chronic ulcer of right ankle with unspecified severity (3) Edema of both lower extremities: CODE(S): R60.0 - Localized edema (4) Lymphedema of both lower extremities: CODE(S): I89.0 - Lymphedema, not elsewhere classified (5) Buttock abrasion: CODE(S): S30.810A - Abrasion of lower back and pelvis, initial encounter (6) Diabetes mellitus type 2 in obese: CODE(S): E11.69 - Type 2 diabetes mellitus with other specified complication; E66.9 - Obesity, unspecified (7) Ulcer of right lower extremity: CODE(S): L97.919 - Non-pressure chronic ulcer of unspecified part of right lower leg with unspecified severity (8) Ulcer of right second toe with fat layer exposed: CODE(S): L97.512 - Non-pressure chronic ulcer of other part of right foot with fat layer exposed PLAN: Plan Patient was evaluated at the wound healing center today. Wound care to all the ulcers is collagen hydrogel covered with dry gauze daily after washing legs and feet with soap and water and drying well. On the right second toe, after foot is washed and dry well, place Nugauze in the dorsal toe crease before placing collagen hydrogel on the ulcer. This will hopefully keep the crease from becoming excoriated. He has been wearing the MANDEEP wraps for compression and it has helped to start to decrease his edema. He is wearing post surgical shoes to help accommodate his feet in the MANDEEP wraps. He sleeps in a chair because of his back problems, therefore that also contributes to his edema. Stressed the importance of elevating legs and lying flat several times throughout the day to help decrease the swelling. Vascular studies are scheduled for the middle of February. Will consider referring him to OT for the lymphedema specialist, after the vascular studies obtained. Follow up two weeks.
== END 2022-01-31 23:59 | disposition home or self-care (01) ==
LOC: WC 13:45
PROVIDERS: PCP Preventive Medicine Occupational Medicine; Visit Provider Nurse Practitioner Family
DX: E11.622 Type 2 diabetes mellitus with other skin ulcer (principal); L97.311 Non-pressure chronic ulcer of right ankle limited to breakdown of skin; L97.512 Non-pressure chronic ulcer of other part of right foot with fat layer exposed; L97.822 Non-pressure chronic ulcer of other part of left lower leg with fat layer exposed; Z79.4 Long term (current) use of insulin; S30.810A Abrasion of lower back and pelvis, initial encounter; E66.9 Obesity, unspecified; I10 Essential (primary) hypertension; R60.0 Localized edema; I89.0 Lymphedema, not elsewhere classified; E78.00 Pure hypercholesterolemia, unspecified; Z79.82 Long term (current) use of aspirin; Z79.890 Hormone replacement therapy; Z79.899 Other long term (current) drug therapy; Z96.651 Presence of right artificial knee joint; Z95.1 Presence of aortocoronary bypass graft
CPT/HCPCS: 11042; 11045; 97597; 97598; 99213; 99214; G0463

== ENCOUNTER 2022-03-25 14:15 | Outpatient (RCR) | payer BC, SELFPAY ==
[2022-02-01 00:10] VITALS: BP 137/65; PULSE 69; RESP 22; TEMP 37.1
[2022-03-04 13:10] VITALS: BP 127/85; PULSE 76; TEMP 36.4
--- NOTE | 2022-03-04 15:29 | PN.PCM_ITS ---
History of Present Illness Date of Service: 03/04/22 Chief Complaint: Swelling of legs and feet with open sores on lower legs b ilaterally History of Wound: Patient is 82 year old male who presents today for evaluation of sores that he has on his lower legs bilaterally and his bilateral lower leg edema. He states he has had these sores awhile. His states that he refuses to wear any type of compression and he has had the sores at least a few months. They haven't been putting much on them. His PCP referred him to the wound center for further evaluation. 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 He is unsure if he had CHF. He has had severe edema of his lower legs for the past couple years. He doesn't like to wear compression because it is difficult to wear shoes. He is wearing special shoes with velcro and his feet barely fit into them. He was hospitalized at [facility] for a toe infection a couple months and he saw Dr. Fairchild there. He denies being told that he has lymphedema. He sleeps in a chair at home because it hurts his back to lay flat. Wound care - Collagen hydrogel to the ulcerated areas topped with adaptic and covered with gauze daily. To his right second dorsal toe keep dry in all the skin folds to help prevent maceration. GLADYS wraps for compression. He is wearing post surgical shoes so his feet can have compression and fit into a shoe. Today he denies fever, chills, nausea, vomiting. He states his appetite is good. Progress of Wound: His edema is improved with compression. his right 2nd toe ulcer is healed, it needs to be kept dry to prevent maceration in the skin folds. Left leg ulcer has healed. Right medial ankle cluster and right posterior ankle cluster are sup erficial. Objective Data Objective Data Vital Signs: Vital Signs Temp Pulse Resp BP 97.5 F L 76 22 H 127/85 H 03/04/22 13:10 03/04/22 13:10 02/01/22 00:10 03/04/22 13:10 Charges/Coding Procedures Integumentary [id number]: [id number] Madyson subq tissue 20 sq cm/< Add On Codes: 05703 Madyson subq tissue add-on (x1) Physical Exam Const alert General Appearance: cooperative Orientation / Consciousness: awake HEENT normocephalic Lymph Lymphatic: lymphedema moderate Lymphatic Narrative: Lymphedema has improved with wearing compression. Resp normal respiratory effort Cardio regular rate Extremity normal capillary refill General Extremity: edema bilateral lower extremity (+3-+4 pitting edema/lymphedema, but has decreased since starting to wear GLADYS wraps for compression) Details: severe (Severe bilateral lower extremity edema/lymphedema, legs are milding weeping. ) Skin Wound Narrative: He has several areas on his legs bilaterally that have superficial ulcers that have improved. The wound on his right dorsal second toe is healed today. He is wearing the compression and his legs and feet bilaterally have less edema. He has ulcer clusters on his right medial ankle and his right posterior ankle that are superficial. Left leg is healed. Neuro oriented x3 Psych thought process normal Appearance: grossly normal Debridement Note Debridement Note Wound debrided: medial ankle cluster Laterality: Right Type of Debridement: Excisional debridement Anesthesia Used: 5% Lidocaine Gel Depth: Down to and including healthy tissue and in the subcutaneous layer Percentage of wound debrided: 100 Instrument Used: 5mm curette Tissue Removed: Devitalized tissue and slough Severity: Limited To Skin Breakdown Amount of bleeding with debridement: Mild Bleeding Controlled with: Pressure and Compression and gauze Patient tolerated procedure: Patient tolerated procedure well Post-Debridement Measurements and Additional Note: Post-Debridement Measurements/Treatment WC - Nurse 1 - General Ulcer Assessment Start: 03/04/22 13:10 Freq: Status: Active Protocol: JUANITO Activity Type Activity Date Activity User E-sign Co-sign Detail Recorded Client Recorded Date Recorded By Document 03/04/22 13:10 SD [id number] 03/04/22 13:20 ISABEL 03/04/22 13:10 - Today's Visit Information Type of service Follow-up Visit (Physician/[employer] ) Arrival Mode Ambulatory,Cane Patient Identification Verified (Name & Yes ) Vital Signs Temperature (97.8 F-99.1 F) 97.5 F L Temperature Source Temporal Pulse Rate (60-100) 76 Pulse Location Monitor Blood Pressure (90/60-120/80) 127/85 H Blood Pressure Mean (mm Hg) 99 Source Monitor Position Sitting Blood Pressure Location Right Arm History Since Last Visit- (Skip if this is Patient's initial visit) Have you changed medications since your No last visit? Any new allergies or adverse reactions No Had a fall/change in ADL's that may No increase risk of falls Signs or symptoms of abuse and/or No neglect since last visit Have you been in the hospital since your No last visit? Has dressing in place as prescribed Yes Has compression in place as prescribed Yes Has offloadiing in place as prescribed N/A Experienced any changes in pain level or No management Left Footwear Regular Shoe Right Footwear Regular Shoe Pain Scale: 0-10 Numeric Is Patient Pain Free? Yes WC - Nurse 1 - General Ulcer Measurement Start: 03/04/22 13:10 Freq: Status: Active Protocol: Activity Type Activity Date Activity User E-sign Co-sign Detail Recorded Client Recorded Date Recorded By Document 03/04/22 13:10 ISABEL [id number] 03/04/22 13:20 ISABEL 03/04/22 13:10 Wound Center Nurse 1 3-right lateral ankle -Current Size (cm) - Length 3 -Current Size (cm) - Width 3 -Current Size (cm) - Depth 0.1 -Total Square Cm 9 -Exudate Amt Small -Exudate Type Serosanguineous -Wound Margin Distinct, Outline Attached -Granulation Amt Medium (34-66%) -Granulation Quality [place] -Necrosis Amt Medium (34-66%) -Necrotic Tissue Type Adherent Slough -Texture (Felisa-wound Skin Appearance) Assessed, Scarring -Moisture (Felisa-wound Skin Appearance) No Abnormality, Assessed -Color (Felisa-wound Skin Appearance) No Abnormality, Assessed -Temperature (Felisa-wound Skin No Abnormality Appearance) (Pt Warm) -Tenderness on Palpation (Felisa-wound No Skin Appearance) -Ulcer Cleansing Soap and Water -Foul Odor after Cleansing No -Anesthetic Used 4% Lidocaine Solution #5 R 2nd toe -Current Size (cm) - Length 2.2 -Current Size (cm) - Width 2.8 -Current Size (cm) - Depth 0.1 -Total Square Cm 6.16 -Exudate Amt Medium -Exudate Type Serosanguineous -Wound Margin Distinct, Outline Attached -Granulation Amt Medium (34-66%) -Granulation Quality [place] -Necrosis Amt Medium (34-66%) -Necrotic Tissue Type Adherent Slough -Texture (Felisa-wound Skin Appearance) Assessed, Scarring -Moisture (Felisa-wound Skin Appearance) No Abnormality, Assessed -Color (Felisa-wound Skin Appearance) No Abnormality, Assessed -Temperature (Felisa-wound Skin No Abnormality Appearance) (Pt Warm) -Tenderness on Palpation (Felisa-wound No Skin Appearance) -Ulcer Cleansing Rinsed/ Irrigated with Saline -Foul Odor after Cleansing No -Anesthetic Used 4% Lidocaine Solution WC - Nurse 2 - General Ulcer CM Notes Start: 03/04/22 13:10 Freq: Status: Active Protocol: Activity Type Activity Date Activity User E-sign Co-sign Detail Recorded Client Recorded Date Recorded By Document 03/04/22 13:32 [id number] 03/04/22 13:51 DARWIN 03/04/22 13:32 Wound Center Nurse 2 4-left posterior inferior leg -Correct Patient No -Correct Side, Site, Position No -Correct Procedure No -Procedure Performed No -Post Debridement (cm) - Length 0 -Post Debridement (cm) - Width 0 -Post Debridement (cm) - Depth 0 -Total Square (Post) (cm) 0 -Area of Debridement (cm) - Length 0 -Area of Debridement (cm) - Width 0 -Total Square (Area) (cm) 0 -Wound/Ulcer Outcome Healed- Epithelialized 3-right lateral ankle -Correct Patient No -Correct Side, Site, Position No -Correct Procedure No -Procedure Performed No -Post Debridement (cm) - Length 0 -Post Debridement (cm) - Width 0 -Post Debridement (cm) - Depth 0 -Total Square (Post) (cm) 0 -Area of Debridement (cm) - Length 0 -Area of Debridement (cm) - Width 0 -Total Square (Area) (cm) 0 -Wound/Ulcer Outcome Healed- Epithelialized #2 Left post lower extremity superior -Correct Patient No -Correct Side, Site, Position No -Correct Procedure No -Procedure Performed No -Post Debridement (cm) - Length 0 -Post Debridement (cm) - Width 0 -Post Debridement (cm) - Depth 0 -Total Square (Post) (cm) 0 -Area of Debridement (cm) - Length 0 -Area of Debridement (cm) - Width 0 -Total Square (Area) (cm) 0 -Wound/Ulcer Outcome Healed- Epithelialized #1 Left lateral moreira -Correct Patient No -Correct Side, Site, Position No -Correct Procedure No -Procedure Performed No -Post Debridement (cm) - Length 0 -Post Debridement (cm) - Width 0 -Post Debridement (cm) - Depth 0 -Total Square (Post) (cm) 0 -Area of Debridement (cm) - Length 0 -Area of Debridement (cm) - Width 0 -Total Square (Area) (cm) 0 -Wound/Ulcer Outcome Healed- Epithelialized 7-right posterior ankle cluster -Correct Patient Yes -Correct Side, Site, Position Yes -Correct Procedure Yes -Procedure Performed Yes -Type of Procedure Debridement -Clinical Debridement Subcutaneous -Tissue Removed Subcutaneous -Post Debridement (cm) - Length 3.5 -Post Debridement (cm) - Width 8.0 -Post Debridement (cm) - Depth 0.1 -Total Square (Post) (cm) 28.00 -Area of Debridement (cm) - Length 3.5 -Area of Debridement (cm) - Width 8.0 -Total Square (Area) (cm) 28.00 -Tunneling No -Undermining/Tunneling No -Circular Undermining No -Wound/Ulcer Outcome Not Healed -Ulcer Cleansing Rinsed/ Irrigated with Saline -Foul Odor after Cleansing No -Bioengineered Tissue No -Bleeding Controlled with Pressure -Treatment Response Procedure Tolerated Well -Offloading No -Debridement - Subq, 1st 20sq cm No 6-right medial ankle cluster -Time 13:36 -Correct Patient Yes -Correct Side, Site, Position Yes -Correct Procedure Yes -Procedure Performed Yes -Type of Procedure Debridement -Clinical Debridement Subcutaneous -Tissue Removed Subcutaneous -Post Debridement (cm) - Length 2.8 -Post Debridement (cm) - Width 2.5 -Post Debridement (cm) - Depth 0.1 -Total Square (Post) (cm) 7.00 -Area of Debridement (cm) - Length 2.8 -Area of Debridement (cm) - Width 2.5 -Total Square (Area) (cm) 7.00 -Tunneling No -Undermining/Tunneling No -Circular Undermining No -Wound/Ulcer Outcome Not Healed -Ulcer Cleansing Rinsed/ Irrigated with Saline -Foul Odor after Cleansing No -Bioengineered Tissue No -Bleeding Controlled with Pressure -Treatment Response Procedure Tolerated Well -Offloading No -Debridement - Subq, 1st 20sq cm Yes -Debridement, SubQ, ea addt'l 20sq cm 1 or part thereof #5 R 2nd toe -Correct Patient No -Correct Side, Site, Position No -Correct Procedure No -Procedure Performed No -Post Debridement (cm) - Length 0.1 -Post Debridement (cm) - Width 0.1 -Post Debridement (cm) - Depth 0.1 -Total Square (Post) (cm) 0.01 -Area of Debridement (cm) - Length 0.1 -Area of Debridement (cm) - Width 0.1 -Total Square (Area) (cm) 0.01 -Wound/Ulcer Outcome Not Healed Pain Scale: 0-10 Numeric Is Patient Pain Free? Yes Additional Wound Wound debrided: posterior ankle cluster Laterality: Right Type of Debridement: Excisional debridement Anesthesia Used: 5% Lidocaine Gel Depth: Down to and including healthy tissue and in the subcutaneous layer Percentage of wound debrided: 100 Instrument Used: 5mm curette Tissue Removed: Devitalized tissue and slough Severity: Fat Layer Exposed Amount of bleeding with debridement: Mild Bleeding Controlled with: Pressure and Compression and gauze Patient tolerated procedure: Patient tolerated procedure well Assessment/Plan Assessment/Plan (1) Diabetic ulcer of right ankle: CODE(S): E11.622 - Type 2 diabetes mellitus with other skin ulcer; L97.319 - Non-pressure chronic ulcer of right ankle with unspecified severity (2) Edema of both lower extremities: CODE(S): R60.0 - Localized edema (3) Lymphedema of both lower extremities: CODE(S): I89.0 - Lymphedema, not elsewhere classified (4) Buttock abrasion: CODE(S): S30.810A - Abrasion of lower back and pelvis, initial encounter (5) Diabetes mellitus type 2 in obese: CODE(S): E11.69 - Type 2 diabetes mellitus with other specified complication; E66.9 - Obesity, unspecified (6) Ulcer of right lower extremity: CODE(S): L97.919 - Non-pressure chronic ulcer of unspecified part of right lower leg with unspecified severity PLAN: Plan Patient was evaluated at the wound healing center today. Wound care to all the right medial ankle cluster and right posterior cluster ulcers is collagen hydrogel topped with adaptic and covered with dry gauze daily after washing legs and feet with soap and water and drying well. On the right second toe, keep this area dry to prevent maceration. He has been wearing the GLADYS wraps for compression and it has helped to start to decrease his edema. He is wearing post surgical shoes to help accommodate his feet in the GLADYS wraps. He sleeps in a chair because of his back problems, therefore that also contributes to his edema. Stressed the importance of elevating legs and lying flat several times throughout the day to help decrease the swelling. Vascular studies were ordered, but have not been done. Will refer him to OT for the lymphedema clinic to get better management of his lymphedema. Follow up one week.
[2022-03-11 13:33] VITALS: BP 134/84; PULSE 96; TEMP 36.4
--- NOTE | 2022-03-11 14:28 | PN.PCM_ITS ---
History of Present Illness Date of Service: 03/11/22 Chief Complaint: Swelling of legs and feet with open sores on lower legs b ilaterally History of Wound: Patient is 82 year old male who presents today for evaluation of sores that he has on his lower legs bilaterally and his bilateral lower leg edema. He states he has had these sores awhile. His states that he refuses to wear any type of compression and he has had the sores at least a few months. They haven't been putting much on them. His PCP referred him to the wound center for further evaluation. 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 He is unsure if he had CHF. He has had severe edema of his lower legs for the past couple years. He doesn't like to wear compression because it is difficult to wear shoes. He is wearing special shoes with velcro and his feet barely fit into them. He was hospitalized at [facility] for a toe infection a couple months and he saw Dr. Fairchild there. He denies being told that he has lymphedema. He sleeps in a chair at home because it hurts his back to lay flat. Wound care - Collagen hydrogel to the ulcerated areas topped with adaptic and covered with gauze daily. To his right second dorsal toe keep dry in all the skin folds to help prevent maceration. GLADYS wraps for compression. He is wearing post surgical shoes so his feet can have compression and fit into a shoe. Today he denies fever, chills, nausea, vomiting. He states his appetite is good. Progress of Wound: His edema has improved with compression. His right 2nd toe ulcer is macerated today. Left leg ulcer has healed. Right medial ankle cluster is improved and right posterior ankle cluster is superficial. He has a new wound on the right a nterior distal leg where a fluid blister formed and drained. He sleeps in a chair and does not elevate his feet at all. He sleeps with his feet on the floor. Objective Data Objective Data Vital Signs: Vital Signs Temp Pulse Resp BP 97.6 F L 96 22 H 134/84 H 03/11/22 13:33 03/11/22 13:33 02/01/22 00:10 03/11/22 13:33 Charges/Coding Addendum Addendum: 18505 and 45921, selective debridement of right anterior distal leg wound Procedures Integumentary [id number]: [id number] Madyson subq tissue 20 sq cm/< (right medial ankle and right posterior ankle) Add On Codes: 22302 Madyson subq tissue add-on (x1) Physical Exam Const alert, oriented x3 and no apparent distress Orientation / Consciousness: awake HEENT normocephalic Lymph Lymphatic: lymphedema moderate Lymphatic Narrative: Lymphedema has improved with wearing compression but still is significant. His ankle edema/lymphedema is no longer touching the floor now that he has been wearing some compression, although it is still significant. Resp normal respiratory effort Cardio regular rate Extremity normal capillary refill Extremity Narrative: +3-+4 pitting edema bilateral lower extremities. His feet and toes are so edemat ous that there are creases in his toes where the fluid weeps out. General Extremity: edema bilateral lower extremity (+3-+4 pitting edema/lymphedema, but has decreased since starting to wear GLADYS wraps for compression) Details: severe (Severe bilateral lower extremity edema/lymphedema, legs are milding weeping. ) Skin Wound Narrative: The wound on his right dorsal second toe was healed but today is macerated from the edema and moisture. He has a new wound on the right distal lower leg caused from a blister that formed and drained. It is a shiny pink. He has ulcer on his right medial ankle that is no longer a cluster and a cluster ulcer on his right posterior ankle that are superficial. Neuro oriented x3 Psych thought process normal Appearance: grossly normal Debridement Note Debridement Note Wound debrided: medial ankle cluster Laterality: Right Type of Debridement: Excisional debridement Anesthesia Used: 5% Lidocaine Gel Depth: Down to and including healthy tissue and in the subcutaneous layer Percentage of wound debrided: 100 Instrument Used: 3mm curette Tissue Removed: Devitalized tissue and slough Severity: Limited To Skin Breakdown Amount of bleeding with debridement: Mild Bleeding Controlled with: Pressure and Compression and gauze Patient tolerated procedure: Patient tolerated procedure well Post-Debridement Measurements and Additional Note: Post-Debridement Measurements/Treatment KIRSTIN - Nurse 1 - General Ulcer Assessment Start: 03/04/22 13:10 Freq: Status: Active Protocol: WC.LOWEXT Activity Type Activity Date Activity User E-sign Co-sign Detail Recorded Client Recorded Date Recorded By Document 03/04/22 13:10 AK [id number] 03/04/22 13:20 AK Document 03/11/22 13:33 KR [id number] 03/11/22 13:40 KR 03/04/22 03/11/22 13:10 13:33 WC - Today's Visit Information Type of service Follow-up Visit Follow-up Visit (Physician/HALL MONITOR (Physician/HALL MONITOR ) ) Arrival Mode Ambulatory,Cane Ambulatory,Cane Patient Identification Verified (Name & Yes Yes ) Vital Signs Temperature (97.8 F-99.1 F) 97.5 F L 97.6 F L Temperature Source Temporal Oral Pulse Rate (60-100) 76 96 Pulse Location Monitor Monitor Blood Pressure (90/60-120/80) 127/85 H 134/84 H Blood Pressure Mean (mm Hg) 99 100 Source Monitor Monitor Position Sitting Semi-Fowlers Blood Pressure Location Right Arm Right Arm History Since Last Visit- (Skip if this is Patient's initial visit) Have you changed medications since your No No last visit? Any new allergies or adverse reactions No No Had a fall/change in ADL's that may No No increase risk of falls Signs or symptoms of abuse and/or No No neglect since last visit Have you been in the hospital since your No No last visit? Has dressing in place as prescribed Yes Yes Has compression in place as prescribed Yes Yes Has offloadiing in place as prescribed N/A N/A Experienced any changes in pain level or No No management Left Footwear Regular Shoe Surgical Shoe with pressure relief insole Right Footwear Regular Shoe Surgical Shoe with pressure relief insole Pain Scale: 0-10 Numeric Is Patient Pain Free? Yes Yes - Nurse 1 - General Ulcer Measurement Start: 03/04/22 13:10 Freq: Status: Active Protocol: Activity Type Activity Date Activity User E-sign Co-sign Detail Recorded Client Recorded Date Recorded By Document 03/04/22 13:10 ISABEL [id number] 03/04/22 13:20 AK Document 03/11/22 13:33 KR [id number] 03/11/22 13:40 KR 03/04/22 03/11/22 13:10 13:33 Wound Center Nurse 1 3-right lateral ankle -Current Size (cm) - Length 3 -Current Size (cm) - Width 3 -Current Size (cm) - Depth 0.1 -Total Square Cm 9 -Exudate Amt Small -Exudate Type Serosanguineous -Wound Margin Distinct, Outline Attached -Granulation Amt Medium (34-66%) -Granulation Quality Fouke -Necrosis Amt Medium (34-66%) -Necrotic Tissue Type Adherent Slough -Texture (Felisa-wound Skin Appearance) Assessed, Scarring -Moisture (Felisa-wound Skin Appearance) No Abnormality, Assessed -Color (Felisa-wound Skin Appearance) No Abnormality, Assessed -Temperature (Felisa-wound Skin No Abnormality Appearance) (Pt Warm) -Tenderness on Palpation (Felisa-wound No Skin Appearance) -Ulcer Cleansing Soap and Water -Foul Odor after Cleansing No -Anesthetic Used 4% Lidocaine Solution #8 Right Lower [place] -Current Size (cm) - Length 3.3 -Current Size (cm) - Width 8 -Current Size (cm) - Depth 0.2 -Total Square Cm 26.4 -Exudate Amt Medium -Exudate Type Serosanguineous -Wound Margin Distinct, Outline Attached -Granulation Amt Large (67-100%) -Granulation Quality Red -Necrosis Amt Small (1-33%) -Necrotic Tissue Type Adherent Slough -Texture (Felisa-wound Skin Appearance) Assessed, Scarring -Moisture (Felisa-wound Skin Appearance) Assessed, Maceration -Color (Felisa-wound Skin Appearance) No Abnormality, Assessed -Temperature (Felisa-wound Skin No Abnormality Appearance) (Pt Warm) -Ulcer Cleansing Soap and Water -Foul Odor after Cleansing No -Anesthetic Used 5% Lidocaine Gel 7-right posterior ankle cluster -Current Size (cm) - Length 3 -Current Size (cm) - Width 2 -Current Size (cm) - Depth 0.2 -Total Square Cm 6 -Exudate Amt Medium -Exudate Type Serosanguineous -Wound Margin Distinct, Outline Attached -Granulation Amt None Present (0 %) -Necrosis Amt Large (67-100%) -Necrotic Tissue Type Adherent Slough -Texture (Felisa-wound Skin Appearance) Assessed, Scarring -Moisture (Felisa-wound Skin Appearance) No Abnormality, Assessed -Color (Felisa-wound Skin Appearance) No Abnormality, Assessed -Temperature (Felisa-wound Skin No Abnormality Appearance) (Pt Warm) -Tenderness on Palpation (Felisa-wound No Skin Appearance) -Ulcer Cleansing Soap and Water -Foul Odor after Cleansing No -Anesthetic Used 5% Lidocaine Gel 6-right medial ankle cluster -Current Size (cm) - Length 1.5 -Current Size (cm) - Width 2 -Current Size (cm) - Depth 0.3 -Total Square Cm 3.0 -Exudate Amt Medium -Exudate Type Yellow/Green -Wound Margin Distinct, Outline Attached -Granulation Amt Medium (34-66%) -Granulation Quality Fouke -Necrosis Amt Medium (34-66%) -Necrotic Tissue Type Adherent Slough -Texture (Felisa-wound Skin Appearance) Assessed, Scarring -Moisture (Felisa-wound Skin Appearance) Assessed,Dry/ Scaly -Color (Felisa-wound Skin Appearance) No Abnormality, Assessed -Ulcer Cleansing Soap and Water -Foul Odor after Cleansing No -Anesthetic Used 5% Lidocaine Gel #5 R 2nd toe -Current Size (cm) - Length 2.2 0.5 -Current Size (cm) - Width 2.8 0.5 -Current Size (cm) - Depth 0.1 0.1 -Total Square Cm 6.16 0.25 -Exudate Amt Medium Small -Exudate Type Serosanguineous Serosanguineous -Wound Margin Distinct, Distinct, Outline Outline Attached Attached -Granulation Amt Medium (34-66%) None Present (0 %) -Granulation Quality Fouke Fouke -Necrosis Amt Medium (34-66%) None Present (0 %) -Necrotic Tissue Type Adherent Slough -Texture (Felisa-wound Skin Appearance) Assessed, Assessed, Scarring Scarring -Moisture (Felisa-wound Skin Appearance) No Abnormality, No Abnormality, Assessed Assessed -Color (Felisa-wound Skin Appearance) No Abnormality, No Abnormality, Assessed Assessed -Temperature (Felisa-wound Skin No Abnormality No Abnormality Appearance) (Pt Warm) (Pt Warm) -Tenderness on Palpation (Felisa-wound No No Skin Appearance) -Ulcer Cleansing Rinsed/ Soap and Water Irrigated with Saline -Foul Odor after Cleansing No No -Anesthetic Used 4% Lidocaine 5% Lidocaine Solution Gel WC - Nurse 2 - General Ulcer CM Notes Start: 03/04/22 13:10 Freq: Status: Active Protocol: Activity Type Activity Date Activity User E-sign Co-sign Detail Recorded Client Recorded Date Recorded By Document 03/04/22 13:32 JF [id number] 03/04/22 13:51 Document 03/11/22 13:51 [id number] 03/11/22 14:03 03/04/22 03/11/22 13:32 13:51 Wound Center Nurse 2 4-left posterior inferior leg -Correct Patient No -Correct Side, Site, Position No -Correct Procedure No -Procedure Performed No -Post Debridement (cm) - Length 0 -Post Debridement (cm) - Width 0 -Post Debridement (cm) - Depth 0 -Total Square (Post) (cm) 0 -Area of Debridement (cm) - Length 0 -Area of Debridement (cm) - Width 0 -Total Square (Area) (cm) 0 -Wound/Ulcer Outcome Healed- Epithelialized 3-right lateral ankle -Correct Patient No -Correct Side, Site, Position No -Correct Procedure No -Procedure Performed No -Post Debridement (cm) - Length 0 -Post Debridement (cm) - Width 0 -Post Debridement (cm) - Depth 0 -Total Square (Post) (cm) 0 -Area of Debridement (cm) - Length 0 -Area of Debridement (cm) - Width 0 -Total Square (Area) (cm) 0 -Wound/Ulcer Outcome Healed- Epithelialized #2 Left post lower extremity superior -Correct Patient No -Correct Side, Site, Position No -Correct Procedure No -Procedure Performed No -Post Debridement (cm) - Length 0 -Post Debridement (cm) - Width 0 -Post Debridement (cm) - Depth 0 -Total Square (Post) (cm) 0 -Area of Debridement (cm) - Length 0 -Area of Debridement (cm) - Width 0 -Total Square (Area) (cm) 0 -Wound/Ulcer Outcome Healed- Epithelialized #1 Left lateral moreira -Correct Patient No -Correct Side, Site, Position No -Correct Procedure No -Procedure Performed No -Post Debridement (cm) - Length 0 -Post Debridement (cm) - Width 0 -Post Debridement (cm) - Depth 0 -Total Square (Post) (cm) 0 -Area of Debridement (cm) - Length 0 -Area of Debridement (cm) - Width 0 -Total Square (Area) (cm) 0 -Wound/Ulcer Outcome Healed- Epithelialized #8 Right Lower [place] -Time 14:00 -Correct Patient Yes -Correct Side, Site, Position Yes -Correct Procedure Yes -Procedure Performed Yes -Type of Procedure Debridement -Clinical Debridement Epidermis / Dermis -Tissue Removed Epidermis, Dermis -Post Debridement (cm) - Length 3.2 -Post Debridement (cm) - Width 9.7 -Post Debridement (cm) - Depth 0.2 -Total Square (Post) (cm) 31.04 -Area of Debridement (cm) - Length 3.2 -Area of Debridement (cm) - Width 9.7 -Total Square (Area) (cm) 31.04 -Tunneling No -Undermining/Tunneling No -Circular Undermining No -Wound/Ulcer Outcome Not Healed -Ulcer Cleansing Rinsed/ Irrigated with Saline -Foul Odor after Cleansing No -Bioengineered Tissue No -Bleeding Controlled with Silver Nitrate -Treatment Response Procedure Tolerated Well -Offloading No -Debridement - Open, 1st 20sq cm Yes -Debridement, Open, ea addt'l 20sq cm 1 or part thereof 7-right posterior ankle cluster -Time 13:59 -Correct Patient Yes Yes -Correct Side, Site, Position Yes Yes -Correct Procedure Yes Yes -Procedure Performed Yes Yes -Type of Procedure Debridement Debridement -Clinical Debridement Subcutaneous Subcutaneous -Tissue Removed Subcutaneous Subcutaneous -Post Debridement (cm) - Length 3.5 3.0 -Post Debridement (cm) - Width 8.0 7.2 -Post Debridement (cm) - Depth 0.1 0.2 -Total Square (Post) (cm) 28.00 21.60 -Area of Debridement (cm) - Length 3.5 3.0 -Area of Debridement (cm) - Width 8.0 7.2 -Total Square (Area) (cm) 28.00 21.60 -Tunneling No No -Undermining/Tunneling No No -Circular Undermining No No -Wound/Ulcer Outcome Not Healed Not Healed -Ulcer Cleansing Rinsed/ Rinsed/ Irrigated with Irrigated with Saline Saline -Foul Odor after Cleansing No No -Bioengineered Tissue No No -Bleeding Controlled with Pressure Pressure -Treatment Response Procedure Procedure Tolerated Well Tolerated Well -Offloading No No -Debridement - Subq, 1st 20sq cm No Yes -Debridement, SubQ, ea addt'l 20sq cm 1 or part thereof 6-right medial ankle cluster -Time 13:36 13:56 -Correct Patient Yes Yes -Correct Side, Site, Position Yes Yes -Correct Procedure Yes Yes -Procedure Performed Yes Yes -Type of Procedure Debridement Debridement -Clinical Debridement Subcutaneous Subcutaneous -Tissue Removed Subcutaneous Subcutaneous -Post Debridement (cm) - Length 2.8 0.5 -Post Debridement (cm) - Width 2.5 0.5 -Post Debridement (cm) - Depth 0.1 0.1 -Total Square (Post) (cm) 7.00 0.25 -Area of Debridement (cm) - Length 2.8 0.5 -Area of Debridement (cm) - Width 2.5 0.5 -Total Square (Area) (cm) 7.00 0.25 -Tunneling No No -Undermining/Tunneling No No -Circular Undermining No No -Wound/Ulcer Outcome Not Healed Not Healed -Ulcer Cleansing Rinsed/ Rinsed/ Irrigated with Irrigated with Saline Saline -Foul Odor after Cleansing No No -Bioengineered Tissue No No -Bleeding Controlled with Pressure Pressure -Treatment Response Procedure Procedure Tolerated Well Tolerated Well -Offloading No No -Debridement - Subq, 1st 20sq cm Yes No -Debridement, SubQ, ea addt'l 20sq cm 1 or part thereof #5 R 2nd toe -Correct Patient No No -Correct Side, Site, Position No No -Correct Procedure No No -Procedure Performed No No -Post Debridement (cm) - Length 0.1 -Post Debridement (cm) - Width 0.1 -Post Debridement (cm) - Depth 0.1 -Total Square (Post) (cm) 0.01 -Area of Debridement (cm) - Length 0.1 -Area of Debridement (cm) - Width 0.1 -Total Square (Area) (cm) 0.01 -Wound/Ulcer Outcome Not Healed Not Healed Pain Scale: 0-10 Numeric Is Patient Pain Free? Yes Yes Additional Wound Wound debrided: posterior ankle cluster Laterality: Right Type of Debridement: Excisional debridement Anesthesia Used: 5% Lidocaine Gel Depth: Down to and including healthy tissue and in the subcutaneous layer Percentage of wound debrided: 100 Instrument Used: 3mm curette Tissue Removed: Devitalized tissue and slough Severity: Fat Layer Exposed Amount of bleeding with debridement: Mild Bleeding Controlled with: Pressure and Compression and gauze Patient tolerated procedure: Patient tolerated procedure well Additional Wound Wound debrided: anterior distal leg wound Laterality: Right Type of Debridement: Selective debridement Anesthesia Used: 4% Lidocaine Solution Depth: Down to and including healthy tissue and in the subcutaneous layer Percentage of wound debrided: 100 Tissue Removed: Removed top layer of blister that is non viable and slough Severity: Limited To Skin Breakdown Amount of bleeding with debridement: Mild Bleeding Controlled with: Pressure and Compression and gauze Patient tolerated procedure: Patient tolerated procedure well Assessment/Plan Assessment/Plan (1) Diabetic ulcer of right ankle: CODE(S): E11.622 - Type 2 diabetes mellitus with other skin ulcer; L97.319 - Non-pressure chronic ulcer of right ankle with unspecified severity (2) Edema of both lower extremities: CODE(S): R60.0 - Localized edema (3) Lymphedema of both lower extremities: CODE(S): I89.0 - Lymphedema, not elsewhere classified (4) Diabetes mellitus type 2 in obese: CODE(S): E11.69 - Type 2 diabetes mellitus with other specified complication; E66.9 - Obesity, unspecified (5) Ulcer of right lower extremity: CODE(S): L97.919 - Non-pressure chronic ulcer of unspecified part of right lower leg with unspecified severity PLAN: Plan Patient was evaluated at the wound healing center today. Wound care to all the right medial ankle ulcer and right posterior cluster ulcer, and the right anterior distal leg wound is collagen hydrogel topped with adaptic and covered with dry gauze daily after washing legs and feet with soap and water and drying well. On the right second toe, keep this area dry to prevent maceration. He has been wearing the GLADYS wraps for compression and it has helped to start to decrease his edema. He is wearing post surgical shoes to help accommodate his feet in the GLADYS wraps. He sleeps in a chair because of his back problems, therefore that also contributes to his edema. He does not elevate his legs at all because it causes him back pain. He sleeps in his chair with his feet on the floor. He also has been taking his GLADYS wraps off at night for a break. I instructed him that if he is not elevating his feet at all, the only time the compression can come off is when he is bathing and doing wound care. Stressed the importance of elevating legs and lying flat several times throughout the day to help decrease the swelling, even for 10 minutes a few times per day. Vascular studies were ordered, but were canceled when he had covid. They have been rescheduled for 04/24/22. Will refer him to OT for the lymphedema clinic to get better management of his lymphedema. When they called to schedule an appointment, he told them he didn't want an appointment because he didn't understand what it was about. I re- educated him on the purpose of the lymphedema clinic and about it will help with his swelling and therefore help heal his wounds/ulcer. He agreed to got to the clinic. I spoke with someone at [facility] and ask them to call him again to schedule an appointment. Follow up one week.
[2022-03-19 14:18] VITALS: BP 133/56; PULSE 73; RESP 16; TEMP 36.1
--- NOTE | 2022-03-19 16:09 | PCM.WC.PN ---
History of Present Illness Date of Service: 03/19/22 Chief Complaint: Swelling of legs and feet with open sores on lower legs bilaterally History of Wound: Patient is 82 year old male who presents today for evaluation of sores that he has on his lower legs bilaterally and his bilateral lower leg edema. He states he has had these sores awhile. His states that he refuses to wear any type of compression and he has had the sores at least a few months. They haven't been putting much on them. His PCP referred him to the wound center for further evaluation. 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 He is unsure if he had CHF. He has had severe edema of his lower legs for the past couple years. He doesn't like to wear compression because it is difficult to wear shoes. He is wearing special shoes with velcro and his feet barely fit into them. He was hospitalized at [facility] for a toe infection a couple months and he saw Dr. Fairchild there. He denies being told that he has lymphedema. He sleeps in a chair at home because it hurts his back to lay flat. Wound care - Silvercell to the right anterior leg cluster. Keep right second dorsal toe dry by placing gauze between toes. 3M 2 layer wraps for compression. He is wearing post surgical shoes so his feet can have compression and fit into a shoe. Today he denies fever, chills, nausea, vomiting. He states his appetite is good. Progress of Wound: His edema has gotten worse this week due to him not wearing compression. He has a ulcer cluster on his right anterior leg, which is smaller. Ankle cluster ulcers are healed today. His vascular studies are not until 04/24/22. We will start loose 3M 2 layer wraps to see if this will start to help with his severe edema/lymphedema. Objective Data Objective Data Vital Signs: Vital Signs Temp Pulse Resp BP O2 Del Method 97 F L 73 16 133/56 H Room Air 03/19/22 14:18 03/19/22 14:18 03/19/22 14:18 03/19/22 14:18 03/19/22 14:18 Oxygen Delivery Method Room Air Charges/Coding Addendum Addendum: selective debridement 71029 Physical Exam Const alert and oriented x3 HEENT normocephalic Lymph Lymphatic: lymphedema moderate Lymphatic Narrative: His ankle edema/lymphedema is no longer touching the floor now that he has been wearing some compression, although it is still significant. Resp normal respiratory effort Cardio regular rate Extremity normal capillary refill Extremity Narrative: +4 pitting edema bilateral lower extremities. His feet and toes are so edematous that there are creases in his toes where the fluid weeps out. General Extremity: edema bilateral lower extremity (+3-+4 pitting edema/lymphedema, but has decreased since starting to wear GLADYS wraps for compression) Details: severe (Severe bilateral lower extremity edema/lymphedema, legs are milding weeping. ) Skin Wound Narrative: The wound on his right dorsal second toe was healed but is macerated from the edema and moisture. Right anterior leg cluster is smaller. Ankle cluster ulcers are healed today. Neuro oriented x3 Psych thought process normal Appearance: grossly normal Debridement Note Debridement Note Wound debrided: anterior leg cluster ulcer Laterality: Right Type of Debridement: Selective debridement Anesthesia Used: 5% Lidocaine Gel Depth: Down to and including healthy tissue and in the subcutaneous layer Percentage of wound debrided: 60 Instrument Used: 3mm curette Tissue Removed: non viable tissue and slough Severity: Fat Layer Exposed Amount of bleeding with debridement: Mild Bleeding Controlled with: Compression and gauze Patient tolerated procedure: Patient tolerated procedure well Post-Debridement Measurements and Additional Note: Post-Debridement Measurements/Treatment KIRSTIN - Nurse 1 - General Ulcer Assessment Start: 03/04/22 13:10 Freq: Status: Active Protocol: JUANITO Activity Type Activity Date Activity User E-sign Co-sign Detail Recorded Client Recorded Date Recorded By Document 03/04/22 13:10 AK [id number] 03/04/22 13:20 AK Document 03/11/22 13:33 KR [id number] 03/11/22 13:40 KR Document 03/19/22 14:18 [facility] [id number] 03/19/22 14:33 BM 03/04/22 03/11/22 03/19/22 13:10 13:33 14:18 - Today's Visit Information Type of service Follow-up Visit Follow-up Visit Follow-up Visit (Physician/ELECTRICAL MAINTENANCE MAN (Physician/ELECTRICAL MAINTENANCE MAN (Physician/ELECTRICAL MAINTENANCE MAN ) ) ) Arrival Mode Ambulatory,Cane Ambulatory,Cane Ambulatory Transfer Assistance None Accompanied by Patient Identification Verified (Name & Yes Yes Yes ) Patient Requires Transmission-Based No Precautions Vital Signs Temperature (97.8 F-99.1 F) 97.5 F L 97.6 F L 97 F L Temperature Source Temporal Oral Temporal Pulse Rate (60-100) 76 96 73 Pulse Location Monitor Monitor Monitor Respiratory Rate (12-18) 16 Respiratory rate source Observation Oxygen Delivery Method Room Air Blood Pressure (90/60-120/80) 127/85 H 134/84 H 133/56 H Blood Pressure Mean (mm Hg) 99 100 81 Source Monitor Monitor Monitor Position Sitting Semi-Fowlers Sitting Blood Pressure Location Right Arm Right Arm Left Arm History Since Last Visit- (Skip if this is Patient's initial visit) Have you changed medications since your No No No last visit? Any new allergies or adverse reactions No No No Had a fall/change in ADL's that may No No No increase risk of falls Signs or symptoms of abuse and/or No No No neglect since last visit Have you been in the hospital since your No No No last visit? Has dressing in place as prescribed Yes Yes Yes Has compression in place as prescribed Yes Yes Yes Has offloadiing in place as prescribed N/A N/A Yes Experienced any changes in pain level or No No No management Left Footwear Regular Shoe Surgical Shoe Surgical Shoe with pressure with pressure relief insole relief insole Right Footwear Regular Shoe Surgical Shoe Surgical Shoe with pressure with pressure relief insole relief insole Pain Scale: 0-10 Numeric Is Patient Pain Free? Yes Yes Yes WC - Nurse 1 - General Ulcer Measurement Start: 03/04/22 13:10 Freq: Status: Active Protocol: Activity Type Activity Date Activity User E-sign Co-sign Detail Recorded Client Recorded Date Recorded By Document 03/04/22 13:10 AK [id number] 03/04/22 13:20 AK Document 03/11/22 13:33 KR [id number] 03/11/22 13:40 KR Document 03/19/22 14:18 [facility] [id number] 03/19/22 14:33 BMF 03/04/22 03/11/22 03/19/22 13:10 13:33 14:18 Wound Center Nurse 1 #8 Right Lower [place] -Combined with other wound No -Current Size (cm) - Length 3.3 0.1 -Current Size (cm) - Width 8 0.1 -Current Size (cm) - Depth 0.2 0.1 -Total Square Cm 26.4 0.01 -Epithelialization Large 67-100% -Exudate Amt Medium -Exudate Type Serosanguineous -Wound Margin Distinct, Outline Attached -Granulation Amt Large (67-100%) -Granulation Quality Red -Necrosis Amt Small (1-33%) -Necrotic Tissue Type Adherent Slough -Texture (Felisa-wound Skin Appearance) Assessed, Assessed Scarring -Moisture (Felisa-wound Skin Appearance) Assessed, Assessed, Maceration Maceration -Color (Felisa-wound Skin Appearance) No Abnormality, Assessed, Assessed Erythema -Temperature (Felisa-wound Skin No Abnormality No Abnormality Appearance) (Pt Warm) (Pt Warm) -Tenderness on Palpation (Felisa-wound No Skin Appearance) -Ulcer Cleansing Soap and Water Soap and Water -Foul Odor after Cleansing No No -Anesthetic Used 5% Lidocaine 4% Lidocaine Gel Solution 7-right posterior ankle cluster -Combined with other wound No -Current Size (cm) - Length 3 3 -Current Size (cm) - Width 2 4 -Current Size (cm) - Depth 0.2 0.1 -Total Square Cm 6 12 -Epithelialization Large 67-100% -Tunneling No -Undermining/Tunneling No -Circular Undermining No -Exudate Amt Medium None Present -Exudate Type Serosanguineous Yellow/Green -Wound Margin Distinct, Distinct, Outline Outline Attached Attached -Granulation Amt None Present (0 None Present (0 %) %) -Slough/Fibrin Yes -Necrosis Amt Large (67-100%) Large (67-100%) -Necrotic Tissue Type Adherent Slough Eschar -Texture (Felisa-wound Skin Appearance) Assessed, Assessed, Scarring Scarring -Moisture (Felisa-wound Skin Appearance) No Abnormality, Assessed, Assessed Maceration -Color (Felisa-wound Skin Appearance) No Abnormality, Assessed, Assessed Erythema -Temperature (Felisa-wound Skin No Abnormality No Abnormality Appearance) (Pt Warm) (Pt Warm) -Tenderness on Palpation (Felisa-wound No No Skin Appearance) -Ulcer Cleansing Soap and Water Soap and Water -Foul Odor after Cleansing No No -Anesthetic Used 5% Lidocaine 4% Lidocaine Gel Solution 6-right medial ankle cluster -Combined with other wound No -Current Size (cm) - Length 1.5 0.1 -Current Size (cm) - Width 2 0.1 -Current Size (cm) - Depth 0.3 0.1 -Total Square Cm 3.0 0.01 -Epithelialization Large 67-100% -Exudate Amt Medium -Exudate Type Yellow/Green -Wound Margin Distinct, Outline Attached -Granulation Amt Medium (34-66%) -Granulation Quality [place] -Necrosis Amt Medium (34-66%) -Necrotic Tissue Type Adherent Slough -Texture (Felisa-wound Skin Appearance) Assessed, Scarring -Moisture (Felisa-wound Skin Appearance) Assessed,Dry/ Scaly -Color (Felisa-wound Skin Appearance) No Abnormality, Assessed -Ulcer Cleansing Soap and Water -Foul Odor after Cleansing No -Anesthetic Used 5% Lidocaine Gel #5 R 2nd toe -Combined with other wound No -Current Size (cm) - Length 2.2 0.5 0.5 -Current Size (cm) - Width 2.8 0.5 0.3 -Current Size (cm) - Depth 0.1 0.1 0.1 -Total Square Cm 6.16 0.25 0.15 -Photo Taken No -Epithelialization Small 1-33% -Tunneling No -Undermining/Tunneling No -Circular Undermining No -Exudate Amt Medium Small Large -Exudate Type Serosanguineous Serosanguineous Yellow/Green -Wound Margin Distinct, Distinct, Distinct, Outline Outline Outline Attached Attached Attached -Granulation Amt Medium (34-66%) None Present (0 Large (67-100%) %) -Granulation Quality [place] Red -Slough/Fibrin Yes -Necrosis Amt Medium (34-66%) None Present (0 Small (1-33%) %) -Necrotic Tissue Type Adherent Slough Adherent Slough -Texture (Felisa-wound Skin Appearance) Assessed, Assessed, Assessed, Scarring Scarring Scarring -Moisture (Felisa-wound Skin Appearance) No Abnormality, No Abnormality, Assessed, Assessed Assessed Maceration -Color (Felisa-wound Skin Appearance) No Abnormality, No Abnormality, Assessed, Assessed Assessed Erythema -Temperature (Felisa-wound Skin No Abnormality No Abnormality No Abnormality Appearance) (Pt Warm) (Pt Warm) (Pt Warm) -Tenderness on Palpation (Felisa-wound No No No Skin Appearance) -Ulcer Cleansing Rinsed/ Soap and Water Soap and Water Irrigated with Saline -Foul Odor after Cleansing No No No -Anesthetic Used 4% Lidocaine 5% Lidocaine 4% Lidocaine Solution Gel Solution 3-right lateral ankle -Current Size (cm) - Length 3 -Current Size (cm) - Width 3 -Current Size (cm) - Depth 0.1 -Total Square Cm 9 -Exudate Amt Small -Exudate Type Serosanguineous -Wound Margin Distinct, Outline Attached -Granulation Amt Medium (34-66%) -Granulation Quality [place] -Necrosis Amt Medium (34-66%) -Necrotic Tissue Type Adherent Slough -Texture (Felisa-wound Skin Appearance) Assessed, Scarring -Moisture (Felisa-wound Skin Appearance) No Abnormality, Assessed -Color (Felisa-wound Skin Appearance) No Abnormality, Assessed -Temperature (Felisa-wound Skin No Abnormality Appearance) (Pt Warm) -Tenderness on Palpation (Felisa-wound No Skin Appearance) -Ulcer Cleansing Soap and Water -Foul Odor after Cleansing No -Anesthetic Used 4% Lidocaine Solution Right Ankle (cm) 36.5 WC - Nurse 2 - General Ulcer CM Notes Start: 03/04/22 13:10 Freq: Status: Active Protocol: Activity Type Activity Date Activity User E-sign Co-sign Detail Recorded Client Recorded Date Recorded By Document 03/04/22 13:32 [id number] 03/04/22 13:51 Document 03/11/22 13:51 [id number] 03/11/22 14:03 Document 03/19/22 15:04 [id number] 03/19/22 15:11 Edit Result 03/19/22 15:04 (1) [id number] 03/19/22 15:15 (1) #8 Right [place] - Correct Patient No => Yes - Correct Side, Site, Position No => Yes - Correct Procedure No => Yes - Procedure Performed No => Yes - Type of Procedure => Debridement - Clinical Debridement => Epidermis / Dermis - Tissue Removed => Epidermis,Dermis - Post Debridement (cm) - Length 0 => 2 - Post Debridement (cm) - Width 0 => 3 - Post Debridement (cm) - Depth 0 => 0.1 - Total Square (Post) (cm) 0 => 6 - Area of Debridement (cm) - Length 0 => 2 - Area of Debridement (cm) - Width 0 => 3 - Total Square (Area) (cm) 0 => 6 - Undermining/Tunneling => No - Circular Undermining => No - Wound/Ulcer Outcome Healed- => Not Healed Epithelialized => - Ulcer Cleansing => Rinsed/Irrigated => with Saline - Foul Odor after Cleansing => No - Bioengineered Tissue => No - Bleeding Controlled with => Pressure - Treatment Response => Procedure => Tolerated Well - Offloading => No - Debridement - Open, 1st 20sq cm => Yes 03/04/22 03/11/22 03/19/22 13:32 13:51 15:04 Wound Center Nurse 2 #8 Right [place] -Time 14:00 -Correct Patient Yes Yes -Correct Side, Site, Position Yes Yes -Correct Procedure Yes Yes -Procedure Performed Yes Yes -Type of Procedure Debridement Debridement -Clinical Debridement Epidermis / Epidermis / Dermis Dermis -Tissue Removed Epidermis, Epidermis, Dermis Dermis -Post Debridement (cm) - Length 3.2 2 -Post Debridement (cm) - Width 9.7 3 -Post Debridement (cm) - Depth 0.2 0.1 -Total Square (Post) (cm) 31.04 6 -Area of Debridement (cm) - Length 3.2 2 -Area of Debridement (cm) - Width 9.7 3 -Total Square (Area) (cm) 31.04 6 -Tunneling No -Undermining/Tunneling No No -Circular Undermining No No -Wound/Ulcer Outcome Not Healed Not Healed -Ulcer Cleansing Rinsed/ Rinsed/ Irrigated with Irrigated with Saline Saline -Foul Odor after Cleansing No No -Bioengineered Tissue No No -Bleeding Controlled with Silver Nitrate Pressure -Treatment Response Procedure Procedure Tolerated Well Tolerated Well -Offloading No No -Debridement - Open, 1st 20sq cm Yes Yes -Debridement, Open, ea addt'l 20sq cm 1 or part thereof 7-right posterior ankle cluster -Time 13:59 -Correct Patient Yes Yes No -Correct Side, Site, Position Yes Yes No -Correct Procedure Yes Yes No -Procedure Performed Yes Yes No -Type of Procedure Debridement Debridement -Clinical Debridement Subcutaneous Subcutaneous -Tissue Removed Subcutaneous Subcutaneous -Post Debridement (cm) - Length 3.5 3.0 0 -Post Debridement (cm) - Width 8.0 7.2 0 -Post Debridement (cm) - Depth 0.1 0.2 0 -Total Square (Post) (cm) 28.00 21.60 0 -Area of Debridement (cm) - Length 3.5 3.0 0 -Area of Debridement (cm) - Width 8.0 7.2 0 -Total Square (Area) (cm) 28.00 21.60 0 -Tunneling No No -Undermining/Tunneling No No -Circular Undermining No No -Wound/Ulcer Outcome Not Healed Not Healed Healed- Epithelialized -Ulcer Cleansing Rinsed/ Rinsed/ Irrigated with Irrigated with Saline Saline -Foul Odor after Cleansing No No -Bioengineered Tissue No No -Bleeding Controlled with Pressure Pressure -Treatment Response Procedure Procedure Tolerated Well Tolerated Well -Offloading No No -Debridement - Subq, 1st 20sq cm No Yes -Debridement, SubQ, ea addt'l 20sq cm 1 or part thereof 6-right medial ankle cluster -Time 13:36 13:56 -Correct Patient Yes Yes No -Correct Side, Site, Position Yes Yes No -Correct Procedure Yes Yes No -Procedure Performed Yes Yes No -Type of Procedure Debridement Debridement -Clinical Debridement Subcutaneous Subcutaneous -Tissue Removed Subcutaneous Subcutaneous -Post Debridement (cm) - Length 2.8 0.5 0 -Post Debridement (cm) - Width 2.5 0.5 0 -Post Debridement (cm) - Depth 0.1 0.1 0 -Total Square (Post) (cm) 7.00 0.25 0 -Area of Debridement (cm) - Length 2.8 0.5 0 -Area of Debridement (cm) - Width 2.5 0.5 0 -Total Square (Area) (cm) 7.00 0.25 0 -Tunneling No No -Undermining/Tunneling No No -Circular Undermining No No -Wound/Ulcer Outcome Not Healed Not Healed Healed- Epithelialized -Ulcer Cleansing Rinsed/ Rinsed/ Irrigated with Irrigated with Saline Saline -Foul Odor after Cleansing No No -Bioengineered Tissue No No -Bleeding Controlled with Pressure Pressure -Treatment Response Procedure Procedure Tolerated Well Tolerated Well -Offloading No No -Debridement - Subq, 1st 20sq cm Yes No -Debridement, SubQ, ea addt'l 20sq cm 1 or part thereof #5 R 2nd toe -Correct Patient No No No -Correct Side, Site, Position No No No -Correct Procedure No No No -Procedure Performed No No No -Post Debridement (cm) - Length 0.1 0 -Post Debridement (cm) - Width 0.1 0 -Post Debridement (cm) - Depth 0.1 0 -Total Square (Post) (cm) 0.01 0 -Area of Debridement (cm) - Length 0.1 0 -Area of Debridement (cm) - Width 0.1 0 -Total Square (Area) (cm) 0.01 0 -Wound/Ulcer Outcome Not Healed Not Healed Healed- Epithelialized 4-left posterior inferior leg -Correct Patient No -Correct Side, Site, Position No -Correct Procedure No -Procedure Performed No -Post Debridement (cm) - Length 0 -Post Debridement (cm) - Width 0 -Post Debridement (cm) - Depth 0 -Total Square (Post) (cm) 0 -Area of Debridement (cm) - Length 0 -Area of Debridement (cm) - Width 0 -Total Square (Area) (cm) 0 -Wound/Ulcer Outcome Healed- Epithelialized 3-right lateral ankle -Correct Patient No -Correct Side, Site, Position No -Correct Procedure No -Procedure Performed No -Post Debridement (cm) - Length 0 -Post Debridement (cm) - Width 0 -Post Debridement (cm) - Depth 0 -Total Square (Post) (cm) 0 -Area of Debridement (cm) - Length 0 -Area of Debridement (cm) - Width 0 -Total Square (Area) (cm) 0 -Wound/Ulcer Outcome Healed- Epithelialized #2 Left post lower extremity superior -Correct Patient No -Correct Side, Site, Position No -Correct Procedure No -Procedure Performed No -Post Debridement (cm) - Length 0 -Post Debridement (cm) - Width 0 -Post Debridement (cm) - Depth 0 -Total Square (Post) (cm) 0 -Area of Debridement (cm) - Length 0 -Area of Debridement (cm) - Width 0 -Total Square (Area) (cm) 0 -Wound/Ulcer Outcome Healed- Epithelialized #1 Left lateral [place] -Correct Patient No -Correct Side, Site, Position No -Correct Procedure No -Procedure Performed No -Post Debridement (cm) - Length 0 -Post Debridement (cm) - Width 0 -Post Debridement (cm) - Depth 0 -Total Square (Post) (cm) 0 -Area of Debridement (cm) - Length 0 -Area of Debridement (cm) - Width 0 -Total Square (Area) (cm) 0 -Wound/Ulcer Outcome Healed- Epithelialized Pain Scale: 0-10 Numeric Is Patient Pain Free? Yes Yes Yes - Nurse 3 - General Ulcer D/C NN Start: 03/04/22 13:10 Freq: Status: Active Protocol: Activity Type Activity Date Activity User E-sign Co-sign Detail Recorded Client Recorded Date Recorded By Document 03/19/22 15:28 DL [id number] 03/19/22 15:29 DL 03/19/22 15:28 Wound Care Nurse 3 #8 Right [place] -Ulcer Cleansing Soap and Water -Foul Odor after Cleansing No Right -Multi-Layered Wrap Application Multi-Layer Comp - Bilat ($ ) Treatment Response Procedure Tolerated Well Pain Scale: 0-10 Numeric Is Patient Pain Free? Yes WC - Visit Discharge Discharge Condition Stable Ambulatory Status Ambulatory Transportation Private [facility] Facility Type Home Health Orders Sent Yes Assessment/Plan Assessment/Plan (1) Ulcer of right lower extremity: CODE(S): L97.919 - Non-pressure chronic ulcer of unspecified part of right lower leg with unspecified severity (2) Edema of both lower extremities: CODE(S): R60.0 - Localized edema (3) Lymphedema of both lower extremities: CODE(S): I89.0 - Lymphedema, not elsewhere classified (4) Diabetes mellitus type 2 in obese: CODE(S): E11.69 - Type 2 diabetes mellitus with other specified complication; E66.9 - Obesity, unspecified PLAN: Plan Patient was evaluated at the wound healing center today. Wound care to all the right anterior leg ulcer cluster is Silvercel topped with gauze. 3M 2 layer wraps wrapped loose to see how he tolerates it. On the right second toe, keep this area dry to prevent maceration. He is wearing post surgical shoes to help accommodate his swollen feet. He sleeps in a chair because of his back problems, therefore that also contributes to his edema. He does not elevate his legs at all because it causes him back pain. He sleeps in his chair with his feet on the floor. Stressed the importance of elevating legs and lying flat several times throughout the day to help decrease the swelling, even for 10 minutes a few times per day. Vascular studies were ordered, but were canceled when he had covid. They have been rescheduled for 04/24/22. Will refer him to OT for the lymphedema clinic to get better management of his lymphedema. His will try to schedule his lymphedema appointment. Follow up one week.
[2022-03-25 14:19] VITALS: TEMP 36.1
[2022-03-25 14:24] VITALS: BP 117/103; PULSE 66; RESP 20; TEMP 36.4
--- NOTE | 2022-03-25 15:06 | PCM.WC.PN ---
History of Present Illness Date of Service: 03/25/22 Chief Complaint: Swelling of legs and feet with open sores on lower legs bilaterally History of Wound: Patient is 82 year old male who presents today for evaluation of sores that he has on his lower legs bilaterally and his bilateral lower leg edema. He states he has had these sores awhile. His states that he refuses to wear any type of compression and he has had the sores at least a few months. They haven't been putting much on them. His PCP referred him to the wound center for further evaluation. 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 He is unsure if he had CHF. He has had severe edema of his lower legs for the past couple years. He doesn't like to wear compression because it is difficult to wear shoes. He is wearing special shoes with velcro and his feet barely fit into them. He was hospitalized at [facility] for a toe infection a couple months and he saw Dr. Fairchild there. He denies being told that he has lymphedema. He sleeps in a chair at home because it hurts his back to lay flat. Wound care - Wounds are healed. His right 2nd toe has a red area of maceration. Instructed his how to keep this area dry with daily dry gauze between his toes. 3M 2 layer wraps for compression. He is wearing post surgical shoes so his feet can have compression and fit into a shoe. Today he denies fever, chills, nausea, vomiting. He states his appetite is good. Progress of Wound: His ulcers are healed. His right foot toes are macerated from the weeping he has due to his edema/lymphedema. His edema/lymphedema is stable. He is scheduled Friday to see Beth at [facility] at the Lymphedema clinic. Objective Data Objective Data Vital Signs: Vital Signs Temp Pulse Resp BP O2 Del Method 97.6 F L 66 20 H 117/103 H Room Air 03/25/22 14:24 03/25/22 14:24 03/25/22 14:24 03/25/22 14:24 03/19/22 14:18 Oxygen Delivery Method Room Air Charges/Coding Visit Charges Office Visits / Consults: 69899 OV L3 Est Physical Exam Const alert and oriented x3 HEENT normocephalic Lymph Lymphatic: lymphedema moderate Lymphatic Narrative: His ankle edema/lymphedema is no longer touching the floor but edema continues to be +4 Resp normal respiratory effort Cardio regular rate Extremity normal capillary refill Extremity Narrative: +4 pitting edema bilateral lower extremities. His feet and toes are so edematous that there are creases in his toes where the fluid weeps out. General Extremity: edema bilateral lower extremity (+4 pitting edema/lymphedema, but has slighly improved with compression) Details: severe (Severe bilateral lower extremity edema/lymphedema, legs are milding weeping. ) Skin Wound Narrative: The wound on his right dorsal second toe is macerated from the edema and moisture. Right anterior leg cluster is healed today. Neuro oriented x3 Psych thought process normal Appearance: grossly normal Debridement Note Debridement Note No debridement was completed: No debridement was completed today Post-Debridement Measurements and Additional Note: Post-Debridement Measurements/Treatment - Nurse 1 - General Ulcer Assessment Start: 03/04/22 13:10 Freq: Status: Active Protocol: KIRSTIN.ERIC Activity Type Activity Date Activity User E-sign Co-sign Detail Recorded Client Recorded Date Recorded By Document 03/04/22 13:10 AK [id number] 03/04/22 13:20 AK Document 03/11/22 13:33 KR [id number] 03/11/22 13:40 KR Document 03/19/22 14:18 [facility] [id number] 03/19/22 14:33 [facility] Document 03/25/22 14:19 AK [id number] 03/25/22 14:20 NH Document 03/25/22 14:24 DL [id number] 03/25/22 14:29 DL 03/04/22 03/11/22 03/19/22 13:10 13:33 14:18 - Today's Visit Information Type of service Follow-up Visit Follow-up Visit Follow-up Visit (Physician/REAL ESTATE FINANCIAL ANALYST (Physician/REAL ESTATE FINANCIAL ANALYST (Physician/REAL ESTATE FINANCIAL ANALYST ) ) ) Arrival Mode Ambulatory,Cane Ambulatory,Cane Ambulatory Transfer Assistance None Accompanied by Patient Identification Verified (Name & Yes Yes Yes ) Patient Requires Transmission-Based No Precautions Safety Precautions Vital Signs Temperature (97.8 F-99.1 F) 97.5 F L 97.6 F L 97 F L Temperature Source Temporal Oral Temporal Pulse Rate (60-100) 76 96 73 Pulse Location Monitor Monitor Monitor Respiratory Rate (12-18) 16 Respiratory rate source Observation Oxygen Delivery Method Room Air Blood Pressure (90/60-120/80) 127/85 H 134/84 H 133/56 H Blood Pressure Mean (mm Hg) 99 100 81 Source Monitor Monitor Monitor Position Sitting Semi-Fowlers Sitting Blood Pressure Location Right Arm Right Arm Left Arm History Since Last Visit- (Skip if this is Patient's initial visit) Have you changed medications since your No No No last visit? Any new allergies or adverse reactions No No No Had a fall/change in ADL's that may No No No increase risk of falls Signs or symptoms of abuse and/or No No No neglect since last visit Have you been in the hospital since your No No No last visit? Has dressing in place as prescribed Yes Yes Yes Has compression in place as prescribed Yes Yes Yes Has offloadiing in place as prescribed N/A N/A Yes Experienced any changes in pain level or No No No management Left Footwear Regular Shoe Surgical Shoe Surgical Shoe with pressure with pressure relief insole relief insole Right Footwear Regular Shoe Surgical Shoe Surgical Shoe with pressure with pressure relief insole relief insole Pain Scale: 0-10 Numeric Is Patient Pain Free? Yes Yes Yes 03/25/22 03/25/22 14:19 14:24 WC - Today's Visit Information Type of service Follow-up Visit Follow-up Visit (Physician/REAL ESTATE FINANCIAL ANALYST (Physician/REAL ESTATE FINANCIAL ANALYST ) ) Arrival Mode Ambulatory Ambulatory Transfer Assistance None Accompanied by Patient Identification Verified (Name & Yes Yes ) Patient Requires Transmission-Based No Precautions Safety Precautions NA Vital Signs Temperature (97.8 F-99.1 F) 96.9 F L 97.6 F L Temperature Source Temporal Temporal Pulse Rate (60-100) 66 Pulse Location Monitor Respiratory Rate (12-18) 20 H Respiratory rate source Observation Oxygen Delivery Method Blood Pressure (90/60-120/80) 117/103 H Blood Pressure Mean (mm Hg) 107 Source Monitor Position Blood Pressure Location History Since Last Visit- (Skip if this is Patient's initial visit) Have you changed medications since your No No last visit? Any new allergies or adverse reactions No No Had a fall/change in ADL's that may No No increase risk of falls Signs or symptoms of abuse and/or No No neglect since last visit Have you been in the hospital since your No No last visit? Has dressing in place as prescribed Yes Yes Has compression in place as prescribed Yes Yes Has offloadiing in place as prescribed N/A Yes Experienced any changes in pain level or No No management Left Footwear Regular Shoe Surgical Shoe with pressure relief insole Right Footwear Regular Shoe Surgical Shoe with pressure relief insole Pain Scale: 0-10 Numeric Is Patient Pain Free? Yes Yes WC - Nurse 1 - General Ulcer Measurement Start: 03/04/22 13:10 Freq: Status: Active Protocol: Activity Type Activity Date Activity User E-sign Co-sign Detail Recorded Client Recorded Date Recorded By Document 03/04/22 13:10 AK [id number] 03/04/22 13:20 AK Document 03/11/22 13:33 KR [id number] 03/11/22 13:40 KR Document 03/19/22 14:18 BMF [id number] 03/19/22 14:33 BMF Document 03/25/22 14:24 DL [id number] 03/25/22 14:29 DL 03/04/22 03/11/22 03/19/22 13:10 13:33 14:18 Wound Center Nurse 1 #8 Right [place] -Combined with other wound No -Current Size (cm) - Length 3.3 0.1 -Current Size (cm) - Width 8 0.1 -Current Size (cm) - Depth 0.2 0.1 -Total Square Cm 26.4 0.01 -Epithelialization Large 67-100% -Exudate Amt Medium -Exudate Type Serosanguineous -Wound Margin Distinct, Outline Attached -Granulation Amt Large (67-100%) -Granulation Quality Red -Necrosis Amt Small (1-33%) -Necrotic Tissue Type Adherent Slough -Texture (Felisa-wound Skin Appearance) Assessed, Assessed Scarring -Moisture (Felisa-wound Skin Appearance) Assessed, Assessed, Maceration Maceration -Color (Felisa-wound Skin Appearance) No Abnormality, Assessed, Assessed Erythema -Temperature (Felisa-wound Skin No Abnormality No Abnormality Appearance) (Pt Warm) (Pt Warm) -Tenderness on Palpation (Felisa-wound No Skin Appearance) -Ulcer Cleansing Soap and Water Soap and Water -Foul Odor after Cleansing No No -Anesthetic Used 5% Lidocaine 4% Lidocaine Gel Solution 7-right posterior ankle cluster -Combined with other wound No -Current Size (cm) - Length 3 3 -Current Size (cm) - Width 2 4 -Current Size (cm) - Depth 0.2 0.1 -Total Square Cm 6 12 -Epithelialization Large 67-100% -Tunneling No -Undermining/Tunneling No -Circular Undermining No -Exudate Amt Medium None Present -Exudate Type Serosanguineous Yellow/Green -Wound Margin Distinct, Distinct, Outline Outline Attached Attached -Granulation Amt None Present (0 None Present (0 %) %) -Slough/Fibrin Yes -Necrosis Amt Large (67-100%) Large (67-100%) -Necrotic Tissue Type Adherent Slough Eschar -Texture (Felisa-wound Skin Appearance) Assessed, Assessed, Scarring Scarring -Moisture (Felisa-wound Skin Appearance) No Abnormality, Assessed, Assessed Maceration -Color (Felisa-wound Skin Appearance) No Abnormality, Assessed, Assessed Erythema -Temperature (Felisa-wound Skin No Abnormality No Abnormality Appearance) (Pt Warm) (Pt Warm) -Tenderness on Palpation (Felisa-wound No No Skin Appearance) -Ulcer Cleansing Soap and Water Soap and Water -Foul Odor after Cleansing No No -Anesthetic Used 5% Lidocaine 4% Lidocaine Gel Solution 6-right medial ankle cluster -Combined with other wound No -Current Size (cm) - Length 1.5 0.1 -Current Size (cm) - Width 2 0.1 -Current Size (cm) - Depth 0.3 0.1 -Total Square Cm 3.0 0.01 -Epithelialization Large 67-100% -Exudate Amt Medium -Exudate Type Yellow/Green -Wound Margin Distinct, Outline Attached -Granulation Amt Medium (34-66%) -Granulation Quality [place] -Necrosis Amt Medium (34-66%) -Necrotic Tissue Type Adherent Slough -Texture (Felisa-wound Skin Appearance) Assessed, Scarring -Moisture (Felisa-wound Skin Appearance) Assessed,Dry/ Scaly -Color (Felisa-wound Skin Appearance) No Abnormality, Assessed -Ulcer Cleansing Soap and Water -Foul Odor after Cleansing No -Anesthetic Used 5% Lidocaine Gel #5 R 2nd toe -Combined with other wound No -Current Size (cm) - Length 2.2 0.5 0.5 -Current Size (cm) - Width 2.8 0.5 0.3 -Current Size (cm) - Depth 0.1 0.1 0.1 -Total Square Cm 6.16 0.25 0.15 -Photo Taken No -Epithelialization Small 1-33% -Tunneling No -Undermining/Tunneling No -Circular Undermining No -Exudate Amt Medium Small Large -Exudate Type Serosanguineous Serosanguineous Yellow/Green -Wound Margin Distinct, Distinct, Distinct, Outline Outline Outline Attached Attached Attached -Granulation Amt Medium (34-66%) None Present (0 Large (67-100%) %) -Granulation Quality [place] Red -Slough/Fibrin Yes -Necrosis Amt Medium (34-66%) None Present (0 Small (1-33%) %) -Necrotic Tissue Type Adherent Slough Adherent Slough -Texture (Felisa-wound Skin Appearance) Assessed, Assessed, Assessed, Scarring Scarring Scarring -Moisture (Felisa-wound Skin Appearance) No Abnormality, No Abnormality, Assessed, Assessed Assessed Maceration -Color (Felisa-wound Skin Appearance) No Abnormality, No Abnormality, Assessed, Assessed Assessed Erythema -Temperature (Felisa-wound Skin No Abnormality No Abnormality No Abnormality Appearance) (Pt Warm) (Pt Warm) (Pt Warm) -Tenderness on Palpation (Felisa-wound No No No Skin Appearance) -Ulcer Cleansing Rinsed/ Soap and Water Soap and Water Irrigated with Saline -Foul Odor after Cleansing No No No -Anesthetic Used 4% Lidocaine 5% Lidocaine 4% Lidocaine Solution Gel Solution 3-right lateral ankle -Current Size (cm) - Length 3 -Current Size (cm) - Width 3 -Current Size (cm) - Depth 0.1 -Total Square Cm 9 -Exudate Amt Small -Exudate Type Serosanguineous -Wound Margin Distinct, Outline Attached -Granulation Amt Medium (34-66%) -Granulation Quality [place] -Necrosis Amt Medium (34-66%) -Necrotic Tissue Type Adherent Slough -Texture (Felisa-wound Skin Appearance) Assessed, Scarring -Moisture (Felisa-wound Skin Appearance) No Abnormality, Assessed -Color (Felisa-wound Skin Appearance) No Abnormality, Assessed -Temperature (Felisa-wound Skin No Abnormality Appearance) (Pt Warm) -Tenderness on Palpation (Felisa-wound No Skin Appearance) -Ulcer Cleansing Soap and Water -Foul Odor after Cleansing No -Anesthetic Used 4% Lidocaine Solution Right Calf (cm) Right Ankle (cm) 36.5 Left Calf (cm) Left Ankle (cm) 03/25/22 14:24 Wound Center Nurse 1 #8 Right [place] -Combined with other wound -Current Size (cm) - Length -Current Size (cm) - Width -Current Size (cm) - Depth -Total Square Cm -Epithelialization -Exudate Amt -Exudate Type -Wound Margin -Granulation Amt -Granulation Quality -Necrosis Amt -Necrotic Tissue Type -Texture (Felisa-wound Skin Appearance) -Moisture (Felisa-wound Skin Appearance) -Color (Felisa-wound Skin Appearance) -Temperature (Felisa-wound Skin Appearance) -Tenderness on Palpation (Felisa-wound Skin Appearance) -Ulcer Cleansing -Foul Odor after Cleansing -Anesthetic Used 7-right posterior ankle cluster -Combined with other wound -Current Size (cm) - Length -Current Size (cm) - Width -Current Size (cm) - Depth -Total Square Cm -Epithelialization -Tunneling -Undermining/Tunneling -Circular Undermining -Exudate Amt -Exudate Type -Wound Margin -Granulation Amt -Slough/Fibrin -Necrosis Amt -Necrotic Tissue Type -Texture (Felisa-wound Skin Appearance) -Moisture (Felisa-wound Skin Appearance) -Color (Felisa-wound Skin Appearance) -Temperature (Felisa-wound Skin Appearance) -Tenderness on Palpation (Felisa-wound Skin Appearance) -Ulcer Cleansing -Foul Odor after Cleansing -Anesthetic Used 6-right medial ankle cluster -Combined with other wound -Current Size (cm) - Length -Current Size (cm) - Width -Current Size (cm) - Depth -Total Square Cm -Epithelialization -Exudate Amt -Exudate Type -Wound Margin -Granulation Amt -Granulation Quality -Necrosis Amt -Necrotic Tissue Type -Texture (Felisa-wound Skin Appearance) -Moisture (Felisa-wound Skin Appearance) -Color (Felisa-wound Skin Appearance) -Ulcer Cleansing -Foul Odor after Cleansing -Anesthetic Used #5 R 2nd toe -Combined with other wound -Current Size (cm) - Length -Current Size (cm) - Width -Current Size (cm) - Depth -Total Square Cm -Photo Taken -Epithelialization -Tunneling -Undermining/Tunneling -Circular Undermining -Exudate Amt -Exudate Type -Wound Margin -Granulation Amt -Granulation Quality -Slough/Fibrin -Necrosis Amt -Necrotic Tissue Type -Texture (Felisa-wound Skin Appearance) -Moisture (Felisa-wound Skin Appearance) -Color (Felisa-wound Skin Appearance) -Temperature (Felisa-wound Skin Appearance) -Tenderness on Palpation (Felisa-wound Skin Appearance) -Ulcer Cleansing -Foul Odor after Cleansing -Anesthetic Used 3-right lateral ankle -Current Size (cm) - Length -Current Size (cm) - Width -Current Size (cm) - Depth -Total Square Cm -Exudate Amt -Exudate Type -Wound Margin -Granulation Amt -Granulation Quality -Necrosis Amt -Necrotic Tissue Type -Texture (Felisa-wound Skin Appearance) -Moisture (Felisa-wound Skin Appearance) -Color (Felisa-wound Skin Appearance) -Temperature (Felisa-wound Skin Appearance) -Tenderness on Palpation (Felisa-wound Skin Appearance) -Ulcer Cleansing -Foul Odor after Cleansing -Anesthetic Used Right Calf (cm) 48 Right Ankle (cm) 32 Left Calf (cm) 45 Left Ankle (cm) 33.4 WC - Nurse 2 - General Ulcer CM Notes Start: 03/04/22 13:10 Freq: Status: Active Protocol: Activity Type Activity Date Activity User E-sign Co-sign Detail Recorded Client Recorded Date Recorded By Document 03/04/22 13:32 [id number] 03/04/22 13:51 Document 03/11/22 13:51 [id number] 03/11/22 14:03 Document 03/19/22 15:04 [id number] 03/19/22 15:11 Edit Result 03/19/22 15:04 DARWIN (1) [id number] 03/19/22 15:15 Document 03/25/22 14:50 [id number] 03/25/22 14:56 (1) #8 Right [place] - Correct Patient No => Yes - Correct Side, Site, Position No => Yes - Correct Procedure No => Yes - Procedure Performed No => Yes - Type of Procedure => Debridement - Clinical Debridement => Epidermis / Dermis - Tissue Removed => Epidermis,Dermis - Post Debridement (cm) - Length 0 => 2 - Post Debridement (cm) - Width 0 => 3 - Post Debridement (cm) - Depth 0 => 0.1 - Total Square (Post) (cm) 0 => 6 - Area of Debridement (cm) - Length 0 => 2 - Area of Debridement (cm) - Width 0 => 3 - Total Square (Area) (cm) 0 => 6 - Undermining/Tunneling => No - Circular Undermining => No - Wound/Ulcer Outcome Healed- => Not Healed Epithelialized => - Ulcer Cleansing => Rinsed/Irrigated => with Saline - Foul Odor after Cleansing => No - Bioengineered Tissue => No - Bleeding Controlled with => Pressure - Treatment Response => Procedure => Tolerated Well - Offloading => No - Debridement - Open, 1st 20sq cm => Yes 03/04/22 03/11/22 03/19/22 13:32 13:51 15:04 Wound Center Nurse 2 #8 Right [place] -Time 14:00 -Correct Patient Yes Yes -Correct Side, Site, Position Yes Yes -Correct Procedure Yes Yes -Procedure Performed Yes Yes -Type of Procedure Debridement Debridement -Clinical Debridement Epidermis / Epidermis / Dermis Dermis -Tissue Removed Epidermis, Epidermis, Dermis Dermis -Post Debridement (cm) - Length 3.2 2 -Post Debridement (cm) - Width 9.7 3 -Post Debridement (cm) - Depth 0.2 0.1 -Total Square (Post) (cm) 31.04 6 -Area of Debridement (cm) - Length 3.2 2 -Area of Debridement (cm) - Width 9.7 3 -Total Square (Area) (cm) 31.04 6 -Tunneling No -Undermining/Tunneling No No -Circular Undermining No No -Wound/Ulcer Outcome Not Healed Not Healed -Ulcer Cleansing Rinsed/ Rinsed/ Irrigated with Irrigated with Saline Saline -Foul Odor after Cleansing No No -Bioengineered Tissue No No -Bleeding Controlled with Silver Nitrate Pressure -Treatment Response Procedure Procedure Tolerated Well Tolerated Well -Offloading No No -Debridement - Open, 1st 20sq cm Yes Yes -Debridement, Open, ea addt'l 20sq cm 1 or part thereof 7-right posterior ankle cluster -Time 13:59 -Correct Patient Yes Yes No -Correct Side, Site, Position Yes Yes No -Correct Procedure Yes Yes No -Procedure Performed Yes Yes No -Type of Procedure Debridement Debridement -Clinical Debridement Subcutaneous Subcutaneous -Tissue Removed Subcutaneous Subcutaneous -Post Debridement (cm) - Length 3.5 3.0 0 -Post Debridement (cm) - Width 8.0 7.2 0 -Post Debridement (cm) - Depth 0.1 0.2 0 -Total Square (Post) (cm) 28.00 21.60 0 -Area of Debridement (cm) - Length 3.5 3.0 0 -Area of Debridement (cm) - Width 8.0 7.2 0 -Total Square (Area) (cm) 28.00 21.60 0 -Tunneling No No -Undermining/Tunneling No No -Circular Undermining No No -Wound/Ulcer Outcome Not Healed Not Healed Healed- Epithelialized -Ulcer Cleansing Rinsed/ Rinsed/ Irrigated with Irrigated with Saline Saline -Foul Odor after Cleansing No No -Bioengineered Tissue No No -Bleeding Controlled with Pressure Pressure -Treatment Response Procedure Procedure Tolerated Well Tolerated Well -Offloading No No -Debridement - Subq, 1st 20sq cm No Yes -Debridement, SubQ, ea addt'l 20sq cm 1 or part thereof 6-right medial ankle cluster -Time 13:36 13:56 -Correct Patient Yes Yes No -Correct Side, Site, Position Yes Yes No -Correct Procedure Yes Yes No -Procedure Performed Yes Yes No -Type of Procedure Debridement Debridement -Clinical Debridement Subcutaneous Subcutaneous -Tissue Removed Subcutaneous Subcutaneous -Post Debridement (cm) - Length 2.8 0.5 0 -Post Debridement (cm) - Width 2.5 0.5 0 -Post Debridement (cm) - Depth 0.1 0.1 0 -Total Square (Post) (cm) 7.00 0.25 0 -Area of Debridement (cm) - Length 2.8 0.5 0 -Area of Debridement (cm) - Width 2.5 0.5 0 -Total Square (Area) (cm) 7.00 0.25 0 -Tunneling No No -Undermining/Tunneling No No -Circular Undermining No No -Wound/Ulcer Outcome Not Healed Not Healed Healed- Epithelialized -Ulcer Cleansing Rinsed/ Rinsed/ Irrigated with Irrigated with Saline Saline -Foul Odor after Cleansing No No -Bioengineered Tissue No No -Bleeding Controlled with Pressure Pressure -Treatment Response Procedure Procedure Tolerated Well Tolerated Well -Offloading No No -Debridement - Subq, 1st 20sq cm Yes No -Debridement, SubQ, ea addt'l 20sq cm 1 or part thereof #5 R 2nd toe -Correct Patient No No No -Correct Side, Site, Position No No No -Correct Procedure No No No -Procedure Performed No No No -Post Debridement (cm) - Length 0.1 0 -Post Debridement (cm) - Width 0.1 0 -Post Debridement (cm) - Depth 0.1 0 -Total Square (Post) (cm) 0.01 0 -Area of Debridement (cm) - Length 0.1 0 -Area of Debridement (cm) - Width 0.1 0 -Total Square (Area) (cm) 0.01 0 -Wound/Ulcer Outcome Not Healed Not Healed Healed- Epithelialized 4-left posterior inferior leg -Correct Patient No -Correct Side, Site, Position No -Correct Procedure No -Procedure Performed No -Post Debridement (cm) - Length 0 -Post Debridement (cm) - Width 0 -Post Debridement (cm) - Depth 0 -Total Square (Post) (cm) 0 -Area of Debridement (cm) - Length 0 -Area of Debridement (cm) - Width 0 -Total Square (Area) (cm) 0 -Wound/Ulcer Outcome Healed- Epithelialized 3-right lateral ankle -Correct Patient No -Correct Side, Site, Position No -Correct Procedure No -Procedure Performed No -Post Debridement (cm) - Length 0 -Post Debridement (cm) - Width 0 -Post Debridement (cm) - Depth 0 -Total Square (Post) (cm) 0 -Area of Debridement (cm) - Length 0 -Area of Debridement (cm) - Width 0 -Total Square (Area) (cm) 0 -Wound/Ulcer Outcome Healed- Epithelialized #2 Left post lower extremity superior -Correct Patient No -Correct Side, Site, Position No -Correct Procedure No -Procedure Performed No -Post Debridement (cm) - Length 0 -Post Debridement (cm) - Width 0 -Post Debridement (cm) - Depth 0 -Total Square (Post) (cm) 0 -Area of Debridement (cm) - Length 0 -Area of Debridement (cm) - Width 0 -Total Square (Area) (cm) 0 -Wound/Ulcer Outcome Healed- Epithelialized #1 Left lateral [place] -Correct Patient No -Correct Side, Site, Position No -Correct Procedure No -Procedure Performed No -Post Debridement (cm) - Length 0 -Post Debridement (cm) - Width 0 -Post Debridement (cm) - Depth 0 -Total Square (Post) (cm) 0 -Area of Debridement (cm) - Length 0 -Area of Debridement (cm) - Width 0 -Total Square (Area) (cm) 0 -Wound/Ulcer Outcome Healed- Epithelialized Pain Scale: 0-10 Numeric Is Patient Pain Free? Yes Yes Yes 03/25/22 14:50 Wound Center Nurse 2 #8 Right [place] -Time -Correct Patient -Correct Side, Site, Position -Correct Procedure -Procedure Performed -Type of Procedure -Clinical Debridement -Tissue Removed -Post Debridement (cm) - Length -Post Debridement (cm) - Width -Post Debridement (cm) - Depth -Total Square (Post) (cm) -Area of Debridement (cm) - Length -Area of Debridement (cm) - Width -Total Square (Area) (cm) -Tunneling -Undermining/Tunneling -Circular Undermining -Wound/Ulcer Outcome -Ulcer Cleansing -Foul Odor after Cleansing -Bioengineered Tissue -Bleeding Controlled with -Treatment Response -Offloading -Debridement - Open, 1st 20sq cm -Debridement, Open, ea addt'l 20sq cm or part thereof 7-right posterior ankle cluster -Time -Correct Patient -Correct Side, Site, Position -Correct Procedure -Procedure Performed -Type of Procedure -Clinical Debridement -Tissue Removed -Post Debridement (cm) - Length -Post Debridement (cm) - Width -Post Debridement (cm) - Depth -Total Square (Post) (cm) -Area of Debridement (cm) - Length -Area of Debridement (cm) - Width -Total Square (Area) (cm) -Tunneling -Undermining/Tunneling -Circular Undermining -Wound/Ulcer Outcome -Ulcer Cleansing -Foul Odor after Cleansing -Bioengineered Tissue -Bleeding Controlled with -Treatment Response -Offloading -Debridement - Subq, 1st 20sq cm -Debridement, SubQ, ea addt'l 20sq cm or part thereof 6-right medial ankle cluster -Time -Correct Patient -Correct Side, Site, Position -Correct Procedure -Procedure Performed -Type of Procedure -Clinical Debridement -Tissue Removed -Post Debridement (cm) - Length -Post Debridement (cm) - Width -Post Debridement (cm) - Depth -Total Square (Post) (cm) -Area of Debridement (cm) - Length -Area of Debridement (cm) - Width -Total Square (Area) (cm) -Tunneling -Undermining/Tunneling -Circular Undermining -Wound/Ulcer Outcome -Ulcer Cleansing -Foul Odor after Cleansing -Bioengineered Tissue -Bleeding Controlled with -Treatment Response -Offloading -Debridement - Subq, 1st 20sq cm -Debridement, SubQ, ea addt'l 20sq cm or part thereof #5 R 2nd toe -Correct Patient -Correct Side, Site, Position -Correct Procedure -Procedure Performed -Post Debridement (cm) - Length -Post Debridement (cm) - Width -Post Debridement (cm) - Depth -Total Square (Post) (cm) -Area of Debridement (cm) - Length -Area of Debridement (cm) - Width -Total Square (Area) (cm) -Wound/Ulcer Outcome 4-left posterior inferior leg -Correct Patient -Correct Side, Site, Position -Correct Procedure -Procedure Performed -Post Debridement (cm) - Length -Post Debridement (cm) - Width -Post Debridement (cm) - Depth -Total Square (Post) (cm) -Area of Debridement (cm) - Length -Area of Debridement (cm) - Width -Total Square (Area) (cm) -Wound/Ulcer Outcome 3-right lateral ankle -Correct Patient -Correct Side, Site, Position -Correct Procedure -Procedure Performed -Post Debridement (cm) - Length -Post Debridement (cm) - Width -Post Debridement (cm) - Depth -Total Square (Post) (cm) -Area of Debridement (cm) - Length -Area of Debridement (cm) - Width -Total Square (Area) (cm) -Wound/Ulcer Outcome #2 Left post lower extremity superior -Correct Patient -Correct Side, Site, Position -Correct Procedure -Procedure Performed -Post Debridement (cm) - Length -Post Debridement (cm) - Width -Post Debridement (cm) - Depth -Total Square (Post) (cm) -Area of Debridement (cm) - Length -Area of Debridement (cm) - Width -Total Square (Area) (cm) -Wound/Ulcer Outcome #1 Left lateral moreira -Correct Patient -Correct Side, Site, Position -Correct Procedure -Procedure Performed -Post Debridement (cm) - Length -Post Debridement (cm) - Width -Post Debridement (cm) - Depth -Total Square (Post) (cm) -Area of Debridement (cm) - Length -Area of Debridement (cm) - Width -Total Square (Area) (cm) -Wound/Ulcer Outcome Pain Scale: 0-10 Numeric Is Patient Pain Free? Yes WC - Nurse 3 - General Ulcer D/C NN Start: 03/04/22 13:10 Freq: Status: Active Protocol: Activity Type Activity Date Activity User E-sign Co-sign Detail Recorded Client Recorded Date Recorded By Document 03/19/22 15:28 DL [id number] 03/19/22 15:29 DL 03/19/22 15:28 Wound Care Nurse 3 #8 Right Lower [place] -Ulcer Cleansing Soap and Water -Foul Odor after Cleansing No Right -Multi-Layered Wrap Application Multi-Layer Comp - Bilat ($ ) Treatment Response Procedure Tolerated Well Pain Scale: 0-10 Numeric Is Patient Pain Free? 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 Wound care to the right second toe, keep this area dry to prevent maceration by placing gauze between 1st and 2nd toes and between 2nd and 3rd toes. Instructed to make sure they are not wrapped tightly. Change daily. He has tolerated the 3M 2 layer wraps to help with edema management 3 times per week. He sleeps in a chair because of his back problems, therefore that also contributes to his edema.? He does not elevate his legs at all because it causes him back pain.? He sleeps in his chair with his feet on the floor.? Stressed the importance of elevating legs and lying flat several times throughout the day to help decrease the swelling, even for 10 minutes a few times per day. Vascular studies were ordered, but were canceled when he had covid.? They have been rescheduled for 04/24/22. He is scheduled for the lymphedema clinic on Friday03/27/22. Follow up 2-3 weeks.
== END 2022-04-03 23:59 | disposition home or self-care (01) ==
LOC: WC 14:15
PROVIDERS: PCP Preventive Medicine Occupational Medicine; Visit Provider Nurse Practitioner Family
DX: E11.622 Type 2 diabetes mellitus with other skin ulcer (principal); L97.312 Non-pressure chronic ulcer of right ankle with fat layer exposed; L97.311 Non-pressure chronic ulcer of right ankle limited to breakdown of skin; L97.512 Non-pressure chronic ulcer of other part of right foot with fat layer exposed; Z79.4 Long term (current) use of insulin; R60.0 Localized edema; I10 Essential (primary) hypertension; S30.810A Abrasion of lower back and pelvis, initial encounter; I89.0 Lymphedema, not elsewhere classified; E66.9 Obesity, unspecified; E78.00 Pure hypercholesterolemia, unspecified; Z79.82 Long term (current) use of aspirin; Z79.899 Other long term (current) drug therapy; Z96.651 Presence of right artificial knee joint; Z95.1 Presence of aortocoronary bypass graft
CPT/HCPCS: 11042; 11045; 29581; 97597; 97598; 99213; G0463

== ENCOUNTER 2022-03-27 15:18 | Outpatient (RCR) | payer BC, SELFPAY ==
--- NOTE | 2022-04-02 11:25 | HP.OTEVAL ---
Patient's Visit Information YVONNE SANTANA is a 82 year old M, referred to Occupational Therapy by Anjelica Buchanan, MENG, with a diagnosis of Lymphedema. Date of Evaluation: 03/27/22 Occupational Therapist: Nasrin Roberson, OTR/Marija, CHT - Subjective This 82 year old male was seen for OT eval with LE lymphedema-pt states he has had swelling for 5 years in his LE. pt states he takes 4 water pills a day due to CHF and kidney issues. pt states he sleeps in a chair due to back or shoulder pain- pt states he just attempted to recline the recliner but it cause upper shoulder scapular pain- pt lives with his but she is unable to mtg wrapping or changing his dressings- pt has been working with wounds on his legs for greater than 6 months. pts family would like to know what more they can do to get his toes down in size and mtg his edema. - Objective Concerns: during session pt asked if his family would leave so he could talk to this therapist alone- once family left pt reviled he does not care about his feet or lets- states he has nothing to live for I am ready to be done. pt states he is alone all of the time despite his living with him- she is always in another room I eat alone- sleep alone etc Pt states he is not living for any grad children or weddings or graduations. Therapist expressed to pt that she respects his stance on his legs and his being- BUT due to is swelling he was advised to attend therapy session to ed. on mtg of lymphedema- pt states he will take my information and listen but did not want to return to clinic. family was then allowed back in room- therapist ed. both son and on mtg - compression alternatives with velcro closures along with life long mtg ed. of lymphedema. along with initiation of going ahead with wrapping of compression over toes . (therapist will call on recommendation of wraps) - Lymphedema (Circumferential Measure) Lower Exremity Comments: pt demonstrates with gross enlargement and swelling of bilateral toes- all are involved. 3m wraps are mtg his LE swelling but toes are not able to be mtg with individual wrapping due to risk of skin breakdown. Family would like to know what they can do to assist pt. - Sensation Sensation Comments: denes - Lower Limb Functional Index Lower Extremity Functional Score: 22 - Goals Demonstrate a 20% reduction in edema by d/c: Yes Demonstrate adequate knowledge of self-bangaging by 1st week: Yes Demonstrate adequate knowledge of self-massage by 2nd week: Yes Demonstrate adequate knowledge skin care/prec by 2nd week: Yes Demonstrate adequate knowledge therapeutic exercises by d/c: Yes Select approp compression garment w/donning/care/wear by d/c: Yes Voice need to replace compression garment every 4-6mo by dc: Yes - Rehabilitation General Assessment: pt demo with elephantids/ gross enlargement and swelling of bilateral toes in bilateral toes- pt demo with seeping areas around his toes- midfoot and ankle not looking good- therapist would rec'd wrapping to toes tips to get some compression at this time until pt can fit in compression alternatives or socks (as wrapping toes would increase graded pressure) would still place cotton absorbent pads between toes prior to wrapping- and pt demo understanding- therapist rec'd compression alterative with velcro closures to mtg pt edema - handout was given to family on information-advised family to order the compression alternative devices as soon as possible prior to being d.c from wound center- family demo understanding- therapist ed. pt on lymph stim ex. to stimulate circulation- pt would benefit from vaso pneumatic pump to assist in mtg of pts swelling- family receptive- pt not receptive to return to clinic so no further apts were scheduled . Rehabilitation Potential: Poor - Anticipated Interventions Education re Diagnosis, Manual Lymph Drainage, Education re Life-long lymphedema Management, Education re Self-Bandaging Techniques, Education re Skin Care and Precautions, Education re Self Massage Techniques, Education re Correct Donning Tech,Care&Wearing Sched Comp Garments, Caregiver Training, Home Program - Visit Plan General Plan: pt not receptive in returning to clinic for treatment -this therapist will assist pt in getting home compression pump for home mtg for pt. family to order velcro closure device to initiate once wounds are closed. will contact [facility] on going through with adding toes in wraps for some supportive compression of toes with padding between toes to protect from skin breakdown- TEXT: Thank you for the opportunity to evaluate your patient. For Medicare and Medicare HMO plans, please review the plan of care and approve it. It will need to be FAXED BACK to us at [phone] for Medicare purposes. Please let me know if there are questions or concerns regarding this plan of care. Physician Signature: Date:
--- NOTE | 2022-07-16 13:22 | HP.OT.NRP ---
YVONNE SANTANA was seen in my office for initial evaluation on 03/27/22. The following Plan of Care was established for this patient: Anticipated Interventions: Education re Diagnosis, Manual Lymph Drainage, Education re Life-long lymphedema Management, Education re Self-Bandaging Techniques, Education re Skin Care and Precautions, Education re Self Massage Techniques, Education re Correct Donning Tech,Care&Wearing Sched Comp Garments, Caregiver Training, Home Program This patient was last seen in our office 03/27/22. Pertinent comments regarding their Occupational therapy will appear below: pt was seen for initial OT eval only- no further apts have been schedule and due to time lapse in services and d.c at this time. At this point I will be discontinuing this patient from occupational therapy. I would be happy to see this patient again in the future if found appropriate by the physician. Thank you! Nasrin Roberson, OTR/L, CHT
== END 2022-03-27 19:00 | disposition home or self-care (01) ==
LOC: OT 15:18
PROVIDERS: PCP Preventive Medicine Occupational Medicine; Referring Provider Nurse Practitioner Family; Visit Provider Nurse Practitioner Family
DX: I89.0 Lymphedema, not elsewhere classified (principal); L97.319 Non-pressure chronic ulcer of right ankle with unspecified severity
CPT/HCPCS: 97166; 97530

== ENCOUNTER → 2022-04-11 | Outpatient (CLI) | payer BC, SELFPAY ==
[2022-04-11 10:46] LABS: Absolute Lymphocyte Count 1.17 X10^3/uL (0.83-4.51); Basophil# 0.03 X10^3/uL; Basophil% 0.3 % (0-1); Eosinophil# 0.21 X10^3/uL; Eosinophils% 2.3 % (0-5); Hematocrit 31.2 % (40-54); Hemoglobin 9.9 g/dL (13.0-16.5); Lymphocyte # 1.17 X10^3/ul (0.83-4.51); Lymphocyte % 12.7 % (19-41); Mean Corp Hgb Conc 31.7 g/dL (32-36); Mean Corpuscular Hgb 29.1 pg (27.0-32.0); Mean Corpuscular Volume 91.8 fL (80-94); Mean Platelet Vol. 9.5 fl (6.2-12.0); Monocyte# 0.76 X10^3/uL; Monocyte% 8.3 % (0-10); NRBC Flagged by Analyzer 0 % (0-5); Neutrophil # 6.99 X10^3/uL (2.7-7.7); Platelet Count 244 K/mm3 (150-450); RBC Distribution Width CV 15.3 % (11.6-14.6); RBC Distribution Width SD 51.1 fl (35.1-43.9); White Blood Count 9.2 K/mm3 (4.4-11.0)
[2022-04-11 10:57] LABS: Protein, Urine (Random) 12.9 mg/dL (<11.9); Protein:Creat Ratio 184 mg/g CRE (0-200)
[2022-04-11 11:05] LABS: Albumin, Serum 3.1 g/dL (3.2-5.0); BUN 58 mg/dL (7-18); BUN/Creat Ratio 23.4 RATIO (10-20); Calcium,Total 9.3 mg/dL (8.5-10.1); Chloride 104 mmol/L (98-107); Creatinine, Serum 2.48 mg/dL (0.70-1.30); EST Glomerular Filtration Rate 27 mL/min (>60); Est Glom Filt Rate - Afr Amer 32 mL/min (>60); Ferritin 68 ng/mL (26-388); Glucose 87 mg/dL (74-106); Iron 44 ug/dL (65-175); Phosphorus 4.5 mg/dL (2.5-4.9); Sodium Level 142 mmol/L (136-145); Uric Acid 7.8 mg/dL (3.5-7.2)
== END | disposition home or self-care (01) ==
PROVIDERS: PCP Preventive Medicine Occupational Medicine; Referring Provider Internal Medicine Nephrology; Visit Provider Internal Medicine Nephrology
DX: E11.621 Type 2 diabetes mellitus with foot ulcer (principal); L97.511 Non-pressure chronic ulcer of other part of right foot limited to breakdown of skin
CPT/HCPCS: 36415; 80069; 82570; 82728; 83540; 83970; 84156; 84550; 85025

== ENCOUNTER 2022-04-29 15:00 | Outpatient (RCR) | payer BC, SELFPAY ==
[2022-04-04 00:07] VITALS: BP 117/103; PULSE 66; RESP 20; TEMP 36.4
[2022-04-04 14:58] VITALS: BP 153/74; PULSE 68; TEMP 36.1
--- NOTE | 2022-04-04 16:51 | PN.PCM_ITS ---
History of Present Illness Date of Service: 04/04/22 Chief Complaint: Swelling of legs and feet with open sores on lower legs b ilaterally History of Wound: Patient is 82 year old male who presents today for evaluation of sores that he has on his lower legs bilaterally and his bilateral lower leg edema. He states he has had these sores awhile. His states that he refuses to wear any type of compression and he has had the sores at least a few months. They haven't been putting much on them. His PCP referred him to the wound center for further evaluation. 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 He is unsure if he had CHF. He has had severe edema of his lower legs for the past couple years. He doesn't like to wear compression because it is difficult to wear shoes. He is wearing special shoes with velcro and his feet barely fit into them. He was hospitalized at [facility] for a toe infection a couple months and he saw Dr. Fairchild there. He denies being told that he has lymphedema. He sleeps in a chair at home because it hurts his back to lay flat. Wound care - New wounds from blisters breaking on his right lateral leg and right posterior leg and left lateral leg. His right 2nd toe has a red area of maceration. Place adaptic over the blistered areas. Keep gauze between his toes and change when wet from drainage. 3M 2 layer wraps for compression. He is wearing post surgical shoes so his feet can have compression and fit into a shoe. Today he denies fever, chills, nausea, vomiting. He states his appetite is good. Progress of Wound: New wounds from blisters breaking on his right lateral leg and right posterior leg and left lateral leg that formed when his 3M 2 layer wraps were placed too tight from home health. He continues to have severe toe edema bilaterally with right second toe area being very macerated from the amount of serous drainage he is having. Objective Data Objective Data Vital Signs: Vital Signs Temp Pulse Resp BP 97.0 F L 68 20 H 153/74 H 04/04/22 14:58 04/04/22 14:58 04/04/22 00:07 04/04/22 14:58 Charges/Coding Addendum Addendum: Selective debridement 33683 and 12999 x 4 Physical Exam Const alert and oriented x3 HEENT normocephalic Lymph Lymphatic: lymphedema moderate Lymphatic Narrative: His ankle edema/lymphedema is no longer touching the floor but edema continues to be +4 Resp normal respiratory effort Cardio regular rate Extremity normal capillary refill Extremity Narrative: +4 pitting edema bilateral lower extremities. His feet and toes are so edematous that there are creases in his toes where the fluid weeps out. General Extremity: edema bilateral lower extremity (+4 pitting edema/lymphedema, but has slighly improved with compression) Details: severe (Severe bilateral lo wer extremity edema/lymphedema, legs are milding weeping. ) Skin Wound Narrative: The wound on his right dorsal second toe is macerated from the edema and moisture. New wounds from blisters breaking on his right lateral leg and right posterior leg and left lateral leg that formed when his 3M 2 layer wraps were placed too tight from home health. Neuro oriented x3 Psych thought process normal Appearance: grossly normal Debridement Note Debridement Note Wound debrided: lateral leg wound/blister Laterality: Right Type of Debridement: Selective debridement Anesthesia Used: 5% Lidocaine Gel Depth: Down to and including healthy tissue and in the subcutaneous layer Percentage of wound debrided: 100 Instrument Used: - (scissors) Tissue Removed: Devitalized tissue and slough Severity: Limited To Skin Breakdown Amount of bleeding with debridement: None Patient tolerated procedure: Patient tolerated procedure well Post-Debridement Measurements and Additional Note: Post-Debridement Measurements/Treatment - Nurse 1 - General Ulcer Assessment Start: 04/04/22 14:42 Freq: Status: Active Protocol: JUANITO Activity Type Activity Date Activity User E-sign Co-sign Detail Recorded Client Recorded Date Recorded By Document 04/04/22 14:58 [id number] 04/04/22 15:13 YOEL 04/04/22 14:58 - Today's Visit Information Type of service Follow-up Visit (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 Any new allergies or adverse reactions No Had a fall/change in ADL's that may No increase risk of falls Signs or symptoms of abuse and/or No neglect since last visit Have you been in the hospital since your No last visit? Has dressing in place as prescribed Yes Has compression in place as prescribed Yes Has offloadiing in place as prescribed N/A Experienced any changes in pain level or No management Left Footwear Regular Shoe Right Footwear Regular Shoe Pain Scale: 0-10 Numeric Is Patient Pain Free? Yes WC - Nurse 1 - General Ulcer Measurement Start: 04/04/22 14:42 Freq: Status: Active Protocol: Activity Type Activity Date Activity User E-sign Co-sign Detail Recorded Client Recorded Date Recorded By Document 04/04/22 14:58 [id number] 04/04/22 15:13 04/04/22 14:58 Wound Center Nurse 1 #11 Right lateral lower extremity -Current Size (cm) - Length 4.2 -Current Size (cm) - Width 6 -Current Size (cm) - Depth 0.1 -Total Square Cm 25.2 -Exudate Amt Medium -Exudate Type Serosanguineous -Wound Margin Distinct, Outline Attached -Granulation Amt Medium (34-66%) -Granulation Quality Red -Necrosis Amt Small (1-33%) -Necrotic Tissue Type Adherent Slough -Texture (Felisa-wound Skin Appearance) Assessed, Scarring -Moisture (Felisa-wound Skin Appearance) Assessed, Maceration -Color (Felisa-wound Skin Appearance) No Abnormality, Assessed -Temperature (Felisa-wound Skin No Abnormality Appearance) (Pt Warm) -Tenderness on Palpation (Felisa-wound No Skin Appearance) -Ulcer Cleansing Soap and Water -Foul Odor after Cleansing No -Anesthetic Used 4% Lidocaine Solution #10 Right post calf -Current Size (cm) - Length 5.3 -Current Size (cm) - Width 4.5 -Current Size (cm) - Depth 0.1 -Total Square Cm 23.85 -Exudate Amt Large -Exudate Type Serosanguineous -Wound Margin Distinct, Outline Attached -Granulation Amt Medium (34-66%) -Granulation Quality Red -Necrosis Amt Small (1-33%) -Texture (Felisa-wound Skin Appearance) Assessed, Localized Edema ,Scarring -Moisture (Felisa-wound Skin Appearance) Assessed, Maceration -Color (Felisa-wound Skin Appearance) No Abnormality, Assessed -Temperature (Felisa-wound Skin No Abnormality Appearance) (Pt Warm) -Tenderness on Palpation (Felisa-wound No Skin Appearance) -Ulcer Cleansing Soap and Water -Foul Odor after Cleansing No -Anesthetic Used 4% Lidocaine Solution #9 Right 2nd toe cluster -Current Size (cm) - Length 7 -Current Size (cm) - Width 4 -Current Size (cm) - Depth 0.8 -Total Square Cm 28 -Exudate Amt Medium -Exudate Type Serosanguineous -Wound Margin Distinct, Outline Attached -Granulation Amt Large (67-100%) -Granulation Quality Red -Necrosis Amt Large (67-100%) -Necrotic Tissue Type Adherent Slough -Texture (Felisa-wound Skin Appearance) Assessed, Scarring -Moisture (Felisa-wound Skin Appearance) Assessed, Maceration -Color (Felisa-wound Skin Appearance) No Abnormality, Assessed -Temperature (Felisa-wound Skin No Abnormality Appearance) (Pt Warm) -Tenderness on Palpation (Felisa-wound No Skin Appearance) -Ulcer Cleansing Rinsed/ Irrigated with Saline -Foul Odor after Cleansing No -Anesthetic Used 4% Lidocaine Solution Right Calf (cm) 45 Right Ankle (cm) 27 Left Calf (cm) 49 Left Ankle (cm) 32 WC - Nurse 2 - General Ulcer CM Notes Start: 04/04/22 14:42 Freq: Status: Active Protocol: Activity Type Activity Date Activity User E-sign Co-sign Detail Recorded Client Recorded Date Recorded By Document 04/04/22 15:17 MW [id number] 04/04/22 15:37 MW 04/04/22 15:17 Wound Center Nurse 2 #12 LEFT LATERAL LE -Time 15:22 -Correct Patient Yes -Correct Side, Site, Position Yes -Correct Procedure Yes -Procedure Performed Yes -Type of Procedure Debridement -Clinical Debridement Epidermis / Dermis -Tissue Removed Epidermis -Post Debridement (cm) - Length 2.5 -Post Debridement (cm) - Width 4.0 -Post Debridement (cm) - Depth 0.1 -Total Square (Post) (cm) 10.00 -Area of Debridement (cm) - Length 2.5 -Area of Debridement (cm) - Width 4.0 -Total Square (Area) (cm) 10.00 -Tunneling No -Undermining/Tunneling No -Circular Undermining No -Wound/Ulcer Outcome Not Healed -Ulcer Cleansing Rinsed/ Irrigated with Saline -Foul Odor after Cleansing No -Bioengineered Tissue No -Bleeding Controlled with Pressure -Treatment Response Procedure Tolerated Well -Offloading No -Debridement - Open, 1st 20sq cm No #11 Right lateral lower extremity -Time 15:17 -Correct Patient Yes -Correct Side, Site, Position Yes -Correct Procedure Yes -Procedure Performed Yes -Type of Procedure Debridement -Clinical Debridement Epidermis / Dermis -Tissue Removed Epidermis -Post Debridement (cm) - Length 5.5 -Post Debridement (cm) - Width 7.0 -Post Debridement (cm) - Depth 0.1 -Total Square (Post) (cm) 38.50 -Area of Debridement (cm) - Length 5.5 -Area of Debridement (cm) - Width 7.0 -Total Square (Area) (cm) 38.50 -Tunneling No -Undermining/Tunneling No -Circular Undermining No -Wound/Ulcer Outcome Not Healed -Ulcer Cleansing Rinsed/ Irrigated with Saline -Foul Odor after Cleansing No -Bioengineered Tissue No -Bleeding Controlled with Pressure -Treatment Response Procedure Tolerated Well -Offloading No -Debridement - Open, 1st 20sq cm Yes -Debridement, Open, ea addt'l 20sq cm 4 or part thereof #10 Right post calf -Time 15:19 -Correct Patient Yes -Correct Side, Site, Position Yes -Correct Procedure Yes -Procedure Performed Yes -Type of Procedure Debridement -Clinical Debridement Epidermis / Dermis -Tissue Removed Epidermis -Post Debridement (cm) - Length 5.0 -Post Debridement (cm) - Width 5.0 -Post Debridement (cm) - Depth 0.1 -Total Square (Post) (cm) 25.00 -Area of Debridement (cm) - Length 5.0 -Area of Debridement (cm) - Width 5.0 -Total Square (Area) (cm) 25.00 -Tunneling No -Undermining/Tunneling No -Circular Undermining No -Wound/Ulcer Outcome Not Healed -Ulcer Cleansing Rinsed/ Irrigated with Saline -Foul Odor after Cleansing No -Bioengineered Tissue No -Debridement - Open, 1st 20sq cm No #9 Right 2nd toe cluster -Time 15:20 -Correct Patient Yes -Correct Side, Site, Position Yes -Correct Procedure Yes -Procedure Performed Yes -Type of Procedure Debridement -Clinical Debridement Epidermis / Dermis -Tissue Removed Epidermis -Post Debridement (cm) - Length 6.0 -Post Debridement (cm) - Width 4.0 -Post Debridement (cm) - Depth 0.1 -Total Square (Post) (cm) 24.00 -Area of Debridement (cm) - Length 6.0 -Area of Debridement (cm) - Width 4.0 -Total Square (Area) (cm) 24.00 -Tunneling No -Undermining/Tunneling No -Circular Undermining No -Wound/Ulcer Outcome Not Healed -Ulcer Cleansing Rinsed/ Irrigated with Saline -Foul Odor after Cleansing No -Bioengineered Tissue No -Bleeding Controlled with Pressure -Treatment Response Procedure Tolerated Well -Offloading No -Debridement - Open, 1st 20sq cm No Pain Scale: 0-10 Numeric Is Patient Pain Free? Yes WC - Nurse 3 - General Ulcer D/C NN Start: 04/04/22 14:42 Freq: Status: Active Protocol: Activity Type Activity Date Activity User E-sign Co-sign Detail Recorded Client Recorded Date Recorded By Document 04/04/22 15:45 [facility] [id number] 04/04/22 15:47 [facility] 04/04/22 15:45 Wound Care Nurse 3 #12 LEFT LATERAL LE -Primary Dressing Applied NonAdherent Contact Layer, Optilok 8x12 -Other Dressing DRSG PER LA RN -Optilok 8x12 4 #11 Right lateral lower extremity -Primary Dressing Applied NonAdherent Contact Layer, Optilok 8x12 -Other Covering 3M/DRSGS PER LA RN -Optilok 8x12 0 #10 Right post calf -Primary Dressing Applied NonAdherent Contact Layer, Optilok 8x12 -Other Dressing 3M/DRSGS PER LA RN -Optilok 8x12 0 #9 Right 2nd toe cluster -Primary Dressing Applied NonAdherent Contact Layer, Optilok 8x12 -Other Dressing 3M, DRSGS PER LA RN -Optilok 8x12 0 BLE -Multi-Layered Wrap Application Multi-Layer Comp - Bilat ($ ) -Other 3M'S PER MT RN Treatment Response Procedure Tolerated Well Pain Scale: 0-10 Numeric Is Patient Pain Free? Yes WC - Visit Discharge Discharge Condition Stable Ambulatory Status Ambulatory,Cane Transportation Private Auto Accompanied by Facility Type Home Health Additional Wound Wound debrided: posterior leg wound/blister Laterality: Right Type of Debridement: Selective debridement Anesthesia Used: 4% Lidocaine Solution Depth: Down to and including healthy tissue and in the subcutaneous layer Percentage of wound debrided: 50 Instrument Used: - (scissors) Tissue Removed: Devitalized tissue and slough Severity: Limited To Skin Breakdown Amount of bleeding with debridement: None Bleeding Controlled with: Compression and gauze Patient tolerated procedure: Patient tolerated procedure well Additional Wound Wound debrided: lateral leg wound/blistered area Laterality: Left Type of Debridement: Selective debridement Anesthesia Used: 4% Lidocaine Solution Depth: Down to and including healthy tissue and in the subcutaneous layer Percentage of wound debrided: 70 Instrument Used: - (scissors and gauze) Tissue Removed: Devitalized tissue and slough Severity: Limited To Skin Breakdown Amount of bleeding with debridement: None Bleeding Controlled with: Compression and gauze Patient tolerated procedure: Patient tolerated procedure well Additional Wound Wound debrided: toe macerated area Laterality: Right Type of Debridement: Selective debridement Anesthesia Used: 5% Lidocaine Gel Depth: Down to and including healthy tissue and in the subcutaneous layer Percentage of wound debrided: 90 Instrument Used: - (scissors and gauze) Tissue Removed: Devitalized tissue and slough Severity: Fat Layer Exposed Amount of bleeding with debridement: None Bleeding Controlled with: Compression and gauze Patient tolerated procedure: Patient tolerated procedure well Assessment/Plan Assessment/Plan (1) Wound of right lower extremity: CODE(S): S81.801A - Unspecified open wound, right lower leg, initial encounter (2) Ulcer of right second toe with fat layer exposed: CODE(S): L97.512 - Non-pressure chronic ulcer of 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 Wound care to the right second toe, keep this area dry to prevent maceration by placing gauze between toes and changing when they become moistened. Adaptic then super absorbers over the wounds/open blistered areas on right lateral leg, right posterior leg and left lateral leg. 3M 2 layer wraps lightly wrapped to prevent further blistering. To be changed 3 times per week. He sleeps in a chair because of his back problems, therefore that also contributes to his edema.? He does not elevate his legs at all because it causes him back pain.? He sleeps in his chair with his feet on the floor.? Stressed the importance of elevating legs and lying flat several times throughout the day to help decrease the swelling, even for 10 minutes a few times per day, but he states he has tried that and he continues too much back pain when doing this. Vascular studies were ordered, but were canceled when he had covid.? They have been rescheduled for 04/24/22. He went to the lymphedema clinic and had a discussion with Beth. She states he is really struggling with this and states he doesn't have help at home except for the home health nurses. Follow up 1 week. With the holiday next Friday, maybe home health can change his dressings and wraps on Friday and Friday and then he can come to the wound center on Friday.
[2022-04-10 15:14] VITALS: BP 154/71; PULSE 68; RESP 18; TEMP 36.4
--- NOTE | 2022-04-10 16:27 | PCM.WC.PN ---
History of Present Illness Date of Service: 04/10/22 Chief Complaint: Swelling of legs and feet with open sores on lower legs bilaterally History of Wound: Patient is 82 year old male who presents today for evaluation of sores that he has on his lower legs bilaterally and his bilateral lower leg edema. He states he has had these sores awhile. His states that he refuses to wear any type of compression and he has had the sores at least a few months. They haven't been putting much on them. His PCP referred him to the wound center for further evaluation. 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 He is unsure if he had CHF. He has had severe edema of his lower legs for the past couple years. He doesn't like to wear compression because it is difficult to wear shoes. He is wearing special shoes with velcro and his feet barely fit into them. He was hospitalized at [facility] for a toe infection a couple months and he saw Dr. Fairchild there. He denies being told that he has lymphedema. He sleeps in a chair at home because it hurts his back to lay flat. Wound care - New wounds from blisters breaking on his right anterior leg and right posterior leg will place silver alginate. His right 2nd toe has a red area of maceration. Keep gauze between his toes and change when wet from drainage. 3M 2 layer wraps for compression. He is wearing post surgical shoes so his feet can have compression and fit into a shoe. Today he denies fever, chills, nausea, vomiting. He states his appetite is good. Progress of Wound: New wounds from blisters breaking on his right anterior leg and right posterior leg that formed when his 3M 2 layer wraps were placed too tight from home health. He continues to have severe toe edema bilaterally with right second toe area being very macerated from the amount of serous drainage he is having. Objective Data Objective Data Vital Signs: Vital Signs Temp Pulse Resp BP 97.6 F L 68 18 154/71 H 04/10/22 15:14 04/10/22 15:14 04/10/22 15:14 04/10/22 15:14 Charges/Coding Procedures Integumentary [id number]: [id number] Madyson subq tissue 20 sq cm/< Physical Exam Const alert and oriented x3 HEENT normocephalic Lymph Lymphatic: lymphedema moderate Lymphatic Narrative: His ankle edema/lymphedema is no longer touching the floor but edema continues to be +4 Resp normal respiratory effort Cardio regular rate Extremity normal capillary refill Extremity Narrative: +4 pitting edema bilateral lower extremities. His feet and toes are so edematous that there are creases in his toes where the fluid weeps out. His edema/lymphedema is actually better compared to last week. He continues to weep through his skin. General Extremity: edema bilateral lower extremity (+4 pitting edema/lymphedema, but has slighly improved with compression) Details: severe (Severe bilateral lower extremity edema/lymphedema, legs are milding weeping. ) Skin Wound Narrative: The wound on his right dorsal second toe is macerated from the edema and moisture. New wounds from blisters breaking on his right posterior leg and right anterior leg when his 3M 2 layer wraps were placed too tight from home health. Edges of these wounds are white with maceration from the amount of drainage that is occuring. Neuro oriented x3 Psych thought process normal Appearance: grossly normal Debridement Note Debridement Note Wound debrided: posterior wound Laterality: Right Wound Grade/Stage: Stage II Type of Debridement: Excisional debridement Anesthesia Used: 5% Lidocaine Gel Depth: Down to and including healthy tissue and in the subcutaneous layer Percentage of wound debrided: 100 Instrument Used: 7mm curette Tissue Removed: Devitalized tissue and slough Severity: Fat Layer Exposed Amount of bleeding with debridement: Mild Bleeding Controlled with: Compression and gauze Patient tolerated procedure: Patient tolerated procedure well Post-Debridement Measurements and Additional Note: Post-Debridement Measurements/Treatment - Nurse 1 - General Ulcer Assessment Start: 04/04/22 14:42 Freq: Status: Active Protocol: JUANITO Activity Type Activity Date Activity User E-sign Co-sign Detail Recorded Client Recorded Date Recorded By Document 04/04/22 14:58 KR [id number] 04/04/22 15:13 KR Document 04/10/22 15:14 PL [id number] 04/10/22 15:28 PL 04/04/22 04/10/22 14:58 15:14 - Today's Visit Information Type of service Follow-up Visit Follow-up Visit (Physician/CREDIT RATING CHECKER (Physician/CREDIT RATING CHECKER ) ) Arrival Mode Ambulatory,Cane Ambulatory,Cane Transfer Assistance None Patient Identification Verified (Name & Yes Yes ) Patient Requires Transmission-Based No Precautions Safety Precautions NA Vital Signs Temperature (97.8 F-99.1 F) 97.0 F L 97.6 F L Temperature Source Temporal Temporal Pulse Rate (60-100) 68 68 Pulse Location Monitor Respiratory Rate (12-18) 18 Blood Pressure (90/60-120/80) 153/74 H 154/71 H Blood Pressure Mean (mm Hg) 100 98 Source Monitor Position Semi-Fowlers Blood Pressure Location Right Arm History Since Last Visit- (Skip if this is Patient's initial visit) Have you changed medications since your No No last visit? Any new allergies or adverse reactions No No Had a fall/change in ADL's that may No No increase risk of falls Signs or symptoms of abuse and/or No No neglect since last visit Have you been in the hospital since your No No last visit? Has dressing in place as prescribed Yes Yes Has compression in place as prescribed Yes Yes Has offloadiing in place as prescribed N/A N/A Experienced any changes in pain level or No No management Left Footwear Regular Shoe Right Footwear Regular Shoe Pain Scale: 0-10 Numeric Is Patient Pain Free? Yes Yes - Nurse 1 - General Ulcer Measurement Start: 04/04/22 14:42 Freq: Status: Active Protocol: Activity Type Activity Date Activity User E-sign Co-sign Detail Recorded Client Recorded Date Recorded By Document 04/04/22 14:58 KR [id number] 04/04/22 15:13 KR Document 04/10/22 15:14 PL [id number] 04/10/22 15:28 04/04/22 04/10/22 14:58 15:14 Wound Center Nurse 1 #11 Right lateral lower extremity -Current Size (cm) - Length 4.2 -Current Size (cm) - Width 6 -Current Size (cm) - Depth 0.1 -Total Square Cm 25.2 -Exudate Amt Medium -Exudate Type Serosanguineous -Wound Margin Distinct, Outline Attached -Granulation Amt Medium (34-66%) -Granulation Quality Red -Necrosis Amt Small (1-33%) -Necrotic Tissue Type Adherent Slough -Texture (Felisa-wound Skin Appearance) Assessed, Scarring -Moisture (Felisa-wound Skin Appearance) Assessed, Maceration -Color (Felisa-wound Skin Appearance) No Abnormality, Assessed -Temperature (Felisa-wound Skin No Abnormality Appearance) (Pt Warm) -Tenderness on Palpation (Felisa-wound No Skin Appearance) -Ulcer Cleansing Soap and Water -Foul Odor after Cleansing No -Anesthetic Used 4% Lidocaine Solution #10 Right post calf -Combined with other wound No -Current Size (cm) - Length 5.3 0.5 -Current Size (cm) - Width 4.5 0.5 -Current Size (cm) - Depth 0.1 0.1 -Total Square Cm 23.85 0.25 -Photo Taken No -Epithelialization None Present -Exudate Amt Large Large -Exudate Type Serosanguineous Serosanguineous -Wound Margin Distinct, Outline Attached -Granulation Amt Medium (34-66%) Large (67-100%) -Granulation Quality [place] -Slough/Fibrin Yes -Necrosis Amt Small (1-33%) Small (1-33%) -Texture (Felisa-wound Skin Appearance) Assessed, Excoriation Localized Edema ,Scarring -Moisture (Felisa-wound Skin Appearance) Assessed, Maceration, Maceration Weeping -Color (Felisa-wound Skin Appearance) No Abnormality, Assessed -Temperature (Felisa-wound Skin No Abnormality Appearance) (Pt Warm) -Tenderness on Palpation (Felisa-wound No No Skin Appearance) -Ulcer Cleansing Soap and Water Soap and Water -Foul Odor after Cleansing No No -Anesthetic Used 4% Lidocaine Solution #9 Right 2nd toe cluster -Combined with other wound No -Current Size (cm) - Length 7 0.5 -Current Size (cm) - Width 4 0.5 -Current Size (cm) - Depth 0.8 0.1 -Total Square Cm 28 0.25 -Tunneling No -Undermining/Tunneling No -Exudate Amt Medium Large -Exudate Type Serosanguineous Serosanguineous -Wound Margin Distinct, Outline Attached -Granulation Amt Large (67-100%) Large (67-100%) -Granulation Quality [place] -Slough/Fibrin Yes -Necrosis Amt Large (67-100%) Small (1-33%) -Necrotic Tissue Type Adherent Slough Adherent Slough -Texture (Felisa-wound Skin Appearance) Assessed, Excoriation, Scarring Localized Edema -Moisture (Felisa-wound Skin Appearance) Assessed, Maceration, Maceration Weeping -Color (Felisa-wound Skin Appearance) No Abnormality, Assessed -Temperature (Felisa-wound Skin No Abnormality Appearance) (Pt Warm) -Tenderness on Palpation (Felisa-wound No Skin Appearance) -Ulcer Cleansing Rinsed/ Irrigated with Saline -Foul Odor after Cleansing No -Anesthetic Used 4% Lidocaine Solution Right Calf (cm) 45 42 Right Ankle (cm) 27 Left Calf (cm) 49 43 Left Ankle (cm) 32 WC - Nurse 2 - General Ulcer CM Notes Start: 04/04/22 14:42 Freq: Status: Active Protocol: Activity Type Activity Date Activity User E-sign Co-sign Detail Recorded Client Recorded Date Recorded By Document 04/04/22 15:17 MW [id number] 04/04/22 15:37 MW 04/04/22 15:17 Wound Center Nurse 2 #12 LEFT LATERAL LE -Time 15:22 -Correct Patient Yes -Correct Side, Site, Position Yes -Correct Procedure Yes -Procedure Performed Yes -Type of Procedure Debridement -Clinical Debridement Epidermis / Dermis -Tissue Removed Epidermis -Post Debridement (cm) - Length 2.5 -Post Debridement (cm) - Width 4.0 -Post Debridement (cm) - Depth 0.1 -Total Square (Post) (cm) 10.00 -Area of Debridement (cm) - Length 2.5 -Area of Debridement (cm) - Width 4.0 -Total Square (Area) (cm) 10.00 -Tunneling No -Undermining/Tunneling No -Circular Undermining No -Wound/Ulcer Outcome Not Healed -Ulcer Cleansing Rinsed/ Irrigated with Saline -Foul Odor after Cleansing No -Bioengineered Tissue No -Bleeding Controlled with Pressure -Treatment Response Procedure Tolerated Well -Offloading No -Debridement - Open, 1st 20sq cm No #11 Right lateral lower extremity -Time 15:17 -Correct Patient Yes -Correct Side, Site, Position Yes -Correct Procedure Yes -Procedure Performed Yes -Type of Procedure Debridement -Clinical Debridement Epidermis / Dermis -Tissue Removed Epidermis -Post Debridement (cm) - Length 5.5 -Post Debridement (cm) - Width 7.0 -Post Debridement (cm) - Depth 0.1 -Total Square (Post) (cm) 38.50 -Area of Debridement (cm) - Length 5.5 -Area of Debridement (cm) - Width 7.0 -Total Square (Area) (cm) 38.50 -Tunneling No -Undermining/Tunneling No -Circular Undermining No -Wound/Ulcer Outcome Not Healed -Ulcer Cleansing Rinsed/ Irrigated with Saline -Foul Odor after Cleansing No -Bioengineered Tissue No -Bleeding Controlled with Pressure -Treatment Response Procedure Tolerated Well -Offloading No -Debridement - Open, 1st 20sq cm Yes -Debridement, Open, ea addt'l 20sq cm 4 or part thereof #10 Right post calf -Time 15:19 -Correct Patient Yes -Correct Side, Site, Position Yes -Correct Procedure Yes -Procedure Performed Yes -Type of Procedure Debridement -Clinical Debridement Epidermis / Dermis -Tissue Removed Epidermis -Post Debridement (cm) - Length 5.0 -Post Debridement (cm) - Width 5.0 -Post Debridement (cm) - Depth 0.1 -Total Square (Post) (cm) 25.00 -Area of Debridement (cm) - Length 5.0 -Area of Debridement (cm) - Width 5.0 -Total Square (Area) (cm) 25.00 -Tunneling No -Undermining/Tunneling No -Circular Undermining No -Wound/Ulcer Outcome Not Healed -Ulcer Cleansing Rinsed/ Irrigated with Saline -Foul Odor after Cleansing No -Bioengineered Tissue No -Debridement - Open, 1st 20sq cm No #9 Right 2nd toe cluster -Time 15:20 -Correct Patient Yes -Correct Side, Site, Position Yes -Correct Procedure Yes -Procedure Performed Yes -Type of Procedure Debridement -Clinical Debridement Epidermis / Dermis -Tissue Removed Epidermis -Post Debridement (cm) - Length 6.0 -Post Debridement (cm) - Width 4.0 -Post Debridement (cm) - Depth 0.1 -Total Square (Post) (cm) 24.00 -Area of Debridement (cm) - Length 6.0 -Area of Debridement (cm) - Width 4.0 -Total Square (Area) (cm) 24.00 -Tunneling No -Undermining/Tunneling No -Circular Undermining No -Wound/Ulcer Outcome Not Healed -Ulcer Cleansing Rinsed/ Irrigated with Saline -Foul Odor after Cleansing No -Bioengineered Tissue No -Bleeding Controlled with Pressure -Treatment Response Procedure Tolerated Well -Offloading No -Debridement - Open, 1st 20sq cm No Pain Scale: 0-10 Numeric Is Patient Pain Free? Yes - Nurse 3 - General Ulcer D/C NN Start: 04/04/22 14:42 Freq: Status: Active Protocol: Activity Type Activity Date Activity User E-sign Co-sign Detail Recorded Client Recorded Date Recorded By Document 04/04/22 15:45 [facility] [id number] 04/04/22 15:47 [facility] 04/04/22 15:45 Wound Care Nurse 3 #12 LEFT LATERAL LE -Primary Dressing Applied NonAdherent Contact Layer, Optilok 8x12 -Other Dressing DRSG PER LA RN -Optilok 8x12 4 #11 Right lateral lower extremity -Primary Dressing Applied NonAdherent Contact Layer, Optilok 8x12 -Other Covering 3M/DRSGS PER LA RN -Optilok 8x12 0 #10 Right post calf -Primary Dressing Applied NonAdherent Contact Layer, Optilok 8x12 -Other Dressing 3M/DRSGS PER LA RN -Optilok 8x12 0 #9 Right 2nd toe cluster -Primary Dressing Applied NonAdherent Contact Layer, Optilok 8x12 -Other Dressing 3M, DRSGS PER LA RN -Optilok 8x12 0 BLE -Multi-Layered Wrap Application Multi-Layer Comp - Bilat ($ ) -Other 3M'S PER LA RN Treatment Response Procedure Tolerated Well Pain Scale: 0-10 Numeric Is Patient Pain Free? Yes - Visit Discharge Discharge Condition Stable Ambulatory Status Ambulatory,Cane Transportation Private Auto Accompanied by Facility Type Home Health Additional Wound Wound debrided: anterior wound Laterality: Right Type of Debridement: Excisional debridement Anesthesia Used: 5% Lidocaine Gel Depth: Down to and including healthy tissue and in the subcutaneous layer Percentage of wound debrided: 100 Instrument Used: 7mm curette Tissue Removed: Devitalized tissue and slough Severity: Fat Layer Exposed Bleeding Controlled with: Compression and gauze Patient tolerated procedure: Patient tolerated procedure well Assessment/Plan Assessment/Plan (1) Wound of right lower extremity: CODE(S): S81.801A - Unspecified open wound, right lower leg, initial encounter (2) Ulcer of right second toe with fat layer exposed: CODE(S): L97.512 - Non-pressure chronic ulcer of other part of right foot with fat layer exposed (3) Edema of both lower extremities: CODE(S): R60.0 - Localized edema (4) Lymphedema of both lower extremities: CODE(S): I89.0 - Lymphedema, not elsewhere classified (5) Diabetes mellitus type 2 in obese: CODE(S): E11.69 - Type 2 diabetes mellitus with other specified complication; E66.9 - Obesity, unspecified PLAN: Plan Patient was evaluated at the wound healing center today. Wound care to the right second toe, keep this area dry to prevent maceration by placing gauze between toes and changing when they become moistened. Place silver alginate over the wounds from the blisters rupturing on the right anterior leg and right posterior leg. Use super absorbers before lightly placing 3M 2 layer wraps for compression. To be changed 3 times per week. Has home health. He sleeps in a chair because of his back problems, therefore that also contributes to his edema.? He does not elevate his legs at all because it causes him back pain.? He sleeps in his chair with his feet on the floor.? Stressed the importance of elevating legs and lying flat several times throughout the day to help decrease the swelling, even for 10 minutes a few times per day, but he states he has tried that and he continues too much back pain when doing this. Vascular studies were ordered, but were canceled when he had covid.? They have been rescheduled for 04/24/22. He went to the lymphedema clinic and had a discussion with Beth. She states he is really struggling with this and states he doesn't have help at home except for the home health nurses. Follow up 1 week.
--- NOTE | 2022-04-24 09:41 | ART_ITS ---
Reason For Study: Bilateral leg ulcers Procedure A bilateral lower extremity continuous wave Doppler with analog waveform analysis,segmental pressures,and ankle brachial indexes without exercise. Left Segmental Pressures Left posterior tibial artery = >254mmHg. Left dorsalis pedis artery = 205mmHg. The left dorsalis pedis waveforms are biphasic. The left posterior tibial artery waveforms are biphasic. Right Segmental Pressures Right brachial= 163mmHg. Right posterior tibial artery = >254mmHg. Right dorsalis pedis artery = >254mmHg. The right dorsalis pedis waveforms are biphasic. The right posterior tibial artery waveforms are biphasic. Indices The right ankle brachial index by the dorsalis pedis is NC. The right ankle brachial index by the posterior tibial artery is NC. The left ankle brachial index by the dorsalis pedis is 1.26. The left dorsalis pedis index post exercise is NC. VL/Lower Ext Art Exam w/o Exercis Interpretation Summary Biphasic Doppler waveforms are noted at ankle level bilaterally. Pulse-volume r ecordings appear diminished at digital level on the left, but satisfactory at all other levels b ilaterally. The resting right ankle-brachial index could not be determined due to the non-compr essibility of the vasculature. The resting left ankle-brachial index is normal. There is evidence of arterial calcification at ankle level on the right. There is no evidence of significant arterial occlusive disease at ankle level bilaterally. Digital-brac hial indices were not determined on either side due to size issues. However, pulse-volume recordings suggest the presence of arterial occlusive disease at digital level on the left, though it cannot be quantified. Clinical correlation is advised. Ordering Physician: Anjelcia Buchanan Referring Physician: Justin Rao Performed By: Vanessa Meeks RVStarr
--- NOTE | 2022-04-24 09:42 | VDLE_ITS ---
Reason For Study: Bilateral leg ulcrs RIGHT LEFT CFV is compressible, spontaneous, phasic, CFV is compressible, spontaneous, phasic, competent and demonstrates normal competent, and demonstrates normal augmentation. augmentation. FV is compressible, spontaneous, phasic, FV is compressible, spontaneous, phasic, competent and demonstrates normal competent and demonstrates normal augmentation. augmentation. POP V is compressible, spontaneous, phasic, POP V is compressible, spontaneous, phasic, competent and demonstrates normal competent and demonstrates normal augmentation. augmentation. T/P Trunk is compressible. T/P Trunk is compressible. PTV is compressible. PTV is compressible. RT PerV is compressible. LT PerV is compressible. SFJ is partially compressible with bright SFJ is competent and measures 1.03 x 1.22 cm. intraluminal consistent with Chronic SVT. GSV proximal thigh measures 0.52 x 0.52 cm. GSV was previously harvested from prox thigh GSV at knee measures 0.40 x 0.44 cm. to mid calf. GSV is competent throughout. GSV distal calf is competent for greater than ASV at knee is INCOMPETENT for greater than 0.5 seconds and measures 0.44 x 0.46 cm. 0.5 seconds and measures 0.31 x 0.38 cm. SSV proximal calf is competent and measures SSV proximal calf is competent and measures 0.36 x 0.38 cm. 0.27 x 0.27 cm. Procedure This is a venous duplex using B-mode, color flow and spectral Doppler. Exam performed in department. A preliminary report was called and/or faxed to . VL/Venous Duplex US - Madi Extrem Interpretation Summary Deep veins of the lower extremities are bilaterally patent and compressible seg mentally. There is no evidence of deep vein thrombosis on either side. Valvular competence appears in tact within the proximal deep venous systems bilaterally. Chronic venous changes are noted in t he right sapheno- femoral junction. The left sapheno-femoral junction is competent . The right gr eat saphenous vein has been previously harvested from the proximal thigh to the mid-calf. The righ t great saphenous vein is patent and competent in the distal calf. The left great saphenous vein is patent and competent. Small saphenous veins are patent and competent bilaterally. The acce ssory saphenous vein at the left knee level is incompetent. Ordering Physician: Anjelica Buchanan Referring Physician: Justin Rao Performed By: Vanessa Meeks RVT
[2022-04-29 15:03] VITALS: BP 138/42; PULSE 67; RESP 22; TEMP 36.4
--- NOTE | 2022-04-29 16:17 | PN.PCM_ITS ---
History of Present Illness Date of Service: 04/29/22 Chief Complaint: Swelling of legs and feet with open sores on lower legs b ilaterally History of Wound: Patient is 82 year old male who presents today for evaluation of sores that he has on his lower legs bilaterally and his bilateral lower leg edema. He states he has had these sores awhile. His states that he refuses to wear any type of compression and he has had the sores at least a few months. They haven't been putting much on them. His PCP referred him to the wound center for further evaluation. 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 He is unsure if he had CHF. He has had severe edema of his lower legs for the past couple years. He doesn't like to wear compression because it is difficult to wear shoes. He is wearing special shoes with velcro and his feet barely fit into them. He was hospitalized at [facility] for a toe infection a couple months and he saw Dr. Fairchild there. He denies being told that he has lymphedema. He sleeps in a chair at home because it hurts his back to lay flat. Venous studies obtained 04/24/22 - Chronic venous changes are noted in the right sapheno-femoral junction. The right great saphenous vein has been previously harvested from the proximal thigh to the mid-calf. The accessory saphenous vein at the left knee level is incompetent. The rest of the study is negative. Arterial studies 04/24/22 - Biphasic Doppler waveforms are noted at ankle level bilaterally. Pulse-volume recordings appear diminished at digital level on the left, but satisfactory at all other levels bilaterally. The resting right ankle-brachial index could not be determined due to the non-compressibility of the vasculature. The resting left ankle-brachial index is normal. There is evidence of arterial calcification at ankle level on the right. There is no evidence of significant arterial occlusive disease at ankle level bilaterally. Digital-brachial indices were not determined on either side due to size issues. However, pulse-volume recordings suggest the presence of arterial occlusive disease at digital level on the left, though it cannot be quantified. Clinical correlation is advised. Left JERAD by dorsalis pedis = 1.26, Right non compressible. Wound care - Left anterior leg and lateral ankle, collagen hydrogel covered with adaptic and ABD. His right 2nd toe has a red area of maceration. Keep gauze between his toes and change when wet from drainage. 3M 2 layer wraps for compression bilaterally. He is wearing post surgical shoes so his feet can have compression and fit into a shoe. Today he denies fever, chills, nausea, vomiting. He states his appetite is good. Progress of Wound: New wounds from his lymphedema compression wrap rubbing on his left anterior leg and left lateral ankle. His right leg edema has improved. The left leg edema is stable. He currently has no weeping of his legs. He continues to have severe toe edema bilaterally with right second toe area being very macerated from the amount of serous drainage he is having. Objective Data Objective Data Vital Signs: Vital Signs Temp Pulse Resp BP 97.6 F L 67 22 H 138/42 H 04/29/22 15:03 04/29/22 15:03 04/29/22 15:03 04/29/22 15:03 Charges/Coding Procedures Integumentary 111xxx-113xx: [id number] Madyson subq tissue 20 sq cm/< Add On Codes: 54515 Madyson subq tissue add-on (x2) Physical Exam Const alert and oriented x3 HEENT normocephalic Lymph Lymphatic: lymphedema moderate Lymphatic Narrative: His ankle edema/lymphedema is no longer touching the floor but edema continues to be +4 Resp normal respiratory effort Cardio regular rate Extremity normal capillary refill Extremity Narrative: +3-+4 pitting edema bilateral lower extremities. His legs are no longer weeping. Overall his leg/ankle edema has improved. He continues to have severe edema of his toes with maceration from drainage. General Extremity: edema bilateral lower extremity (+4 pitting edema/lymphedema, but has slighly improved with compression) Details: severe (Severe bilateral lower extremity edema/lymphedema, legs are milding weeping. ) Skin Wound Narrative: Left anterior distal leg and left medial ankle ulcers are superficial. Neuro oriented x3 Psych thought process normal Appearance: grossly normal Debridement Note Debridement Note Wound debrided: anterior leg and right medial ankle Laterality: Left Type of Debridement: Excisional debridement Anesthesia Used: 5% Lidocaine Gel Depth: Down to and including healthy tissue and in the subcutaneous layer Percentage of wound debrided: 100 Instrument Used: 5mm curette Tissue Removed: Devitalized tissue and slough Severity: Fat Layer Exposed Amount of bleeding with debridement: Mild Bleeding Controlled with: Pressure Patient tolerated procedure: Patient tolerated procedure well Post-Debridement Measurements and Additional Note: Post-Debridement Measurements/Treatment - Nurse 1 - General Ulcer Assessment Start: 04/04/22 14:42 Freq: Status: Active Protocol: JUANITO Activity Type Activity Date Activity User E-sign Co-sign Detail Recorded Client Recorded Date Recorded By Document 04/04/22 14:58 KR [id number] 04/04/22 15:13 KR Document 04/10/22 15:14 PL [id number] 04/10/22 15:28 PL Document 04/29/22 15:03 DL [id number] 04/29/22 15:16 DL 04/04/22 04/10/22 04/29/22 14:58 15:14 15:03 - Today's Visit Information Type of service Follow-up Visit Follow-up Visit Follow-up Visit (Physician/COMPOSING MACHINE OPERATOR/TENDER (Physician/COMPOSING MACHINE OPERATOR/TENDER (Physician/COMPOSING MACHINE OPERATOR/TENDER ) ) ) Arrival Mode Ambulatory,Cane Ambulatory,Cane Ambulatory Transfer Assistance None None Patient Identification Verified (Name & Yes Yes Yes ) Patient Requires Transmission-Based No No Precautions Safety Precautions NA Vital Signs Temperature (97.8 F-99.1 F) 97.0 F L 97.6 F L 97.6 F L Temperature Source Temporal Temporal Temporal Pulse Rate (60-100) 68 68 67 Pulse Location Monitor Monitor Respiratory Rate (12-18) 18 22 H Respiratory rate source Observation Blood Pressure (90/60-120/80) 153/74 H 154/71 H 138/42 H Blood Pressure Mean (mm Hg) 100 98 74 Source Monitor Monitor Position Semi-Fowlers Blood Pressure Location Right Arm History Since Last Visit- (Skip if this is Patient's initial visit) Have you changed medications since your No No No last visit? Any new allergies or adverse reactions No No No Had a fall/change in ADL's that may No No No increase risk of falls Signs or symptoms of abuse and/or No No No neglect since last visit Have you been in the hospital since your No No No last visit? Has dressing in place as prescribed Yes Yes Yes Has compression in place as prescribed Yes Yes Yes Has offloadiing in place as prescribed N/A N/A N/A Experienced any changes in pain level or No No No management Left Footwear Regular Shoe Right Footwear Regular Shoe Pain Scale: 0-10 Numeric Is Patient Pain Free? Yes Yes Yes WC - Nurse 1 - General Ulcer Measurement Start: 04/04/22 14:42 Freq: Status: Active Protocol: Activity Type Activity Date Activity User E-sign Co-sign Detail Recorded Client Recorded Date Recorded By Document 04/04/22 14:58 KR [id number] 04/04/22 15:13 KR Document 04/10/22 15:14 PL [id number] 04/10/22 15:28 PL Document 04/29/22 15:03 DL [id number] 04/29/22 15:16 DL 04/04/22 04/10/22 04/29/22 14:58 15:14 15:03 Wound Center Nurse 1 #11 Right lateral lower extremity -Current Size (cm) - Length 4.2 -Current Size (cm) - Width 6 -Current Size (cm) - Depth 0.1 -Total Square Cm 25.2 -Exudate Amt Medium -Exudate Type Serosanguineous -Wound Margin Distinct, Outline Attached -Granulation Amt Medium (34-66%) -Granulation Quality Red -Necrosis Amt Small (1-33%) -Necrotic Tissue Type Adherent Slough -Texture (Felisa-wound Skin Appearance) Assessed, Scarring -Moisture (Felisa-wound Skin Appearance) Assessed, Maceration -Color (Felisa-wound Skin Appearance) No Abnormality, Assessed -Temperature (Felisa-wound Skin No Abnormality Appearance) (Pt Warm) -Tenderness on Palpation (Felisa-wound No Skin Appearance) -Ulcer Cleansing Soap and Water -Foul Odor after Cleansing No -Anesthetic Used 4% Lidocaine Solution #10 Right post calf -Combined with other wound No -Current Size (cm) - Length 5.3 0.5 -Current Size (cm) - Width 4.5 0.5 -Current Size (cm) - Depth 0.1 0.1 -Total Square Cm 23.85 0.25 -Photo Taken No -Epithelialization None Present -Exudate Amt Large Large -Exudate Type Serosanguineous Serosanguineous -Wound Margin Distinct, Outline Attached -Granulation Amt Medium (34-66%) Large (67-100%) -Granulation Quality Red [place] -Slough/Fibrin Yes -Necrosis Amt Small (1-33%) Small (1-33%) -Texture (Felisa-wound Skin Appearance) Assessed, Excoriation Localized Edema ,Scarring -Moisture (Felisa-wound Skin Appearance) Assessed, Maceration, Maceration Weeping -Color (Felisa-wound Skin Appearance) No Abnormality, Assessed -Temperature (Felisa-wound Skin No Abnormality Appearance) (Pt Warm) -Tenderness on Palpation (Felisa-wound No No Skin Appearance) -Ulcer Cleansing Soap and Water Soap and Water -Foul Odor after Cleansing No No -Anesthetic Used 4% Lidocaine Solution #9 Right 2nd toe cluster -Combined with other wound No -Current Size (cm) - Length 7 0.5 -Current Size (cm) - Width 4 0.5 -Current Size (cm) - Depth 0.8 0.1 -Total Square Cm 28 0.25 -Tunneling No -Undermining/Tunneling No -Exudate Amt Medium Large -Exudate Type Serosanguineous Serosanguineous -Wound Margin Distinct, Outline Attached -Granulation Amt Large (67-100%) Large (67-100%) -Granulation Quality Red [place] -Slough/Fibrin Yes -Necrosis Amt Large (67-100%) Small (1-33%) -Necrotic Tissue Type Adherent Slough Adherent Slough -Texture (Felisa-wound Skin Appearance) Assessed, Excoriation, Scarring Localized Edema -Moisture (Felisa-wound Skin Appearance) Assessed, Maceration, Maceration Weeping -Color (Felisa-wound Skin Appearance) No Abnormality, Assessed -Temperature (Felisa-wound Skin No Abnormality Appearance) (Pt Warm) -Tenderness on Palpation (Felisa-wound No Skin Appearance) -Ulcer Cleansing Rinsed/ Irrigated with Saline -Foul Odor after Cleansing No -Anesthetic Used 4% Lidocaine Solution #14 L Lat Ankle -Current Size (cm) - Length 2.9 -Current Size (cm) - Width 4.9 -Current Size (cm) - Depth 0.1 -Total Square Cm 14.21 -Photo Taken Yes -Exudate Amt Small -Exudate Type Serosanguineous -Wound Margin Distinct, Outline Attached -Granulation Amt Large (67-100%) -Granulation Quality Red -Necrosis Amt Small (1-33%) -Necrotic Tissue Type Adherent Slough -Structure Exposed N/A -Texture (Felisa-wound Skin Appearance) Localized Edema ,Scarring -Moisture (Felisa-wound Skin Appearance) Dry/Scaly -Color (Felisa-wound Skin Appearance) Hemosiderin Staining -Temperature (Felisa-wound Skin No Abnormality Appearance) (Pt Warm) -Tenderness on Palpation (Felisa-wound Yes Skin Appearance) -Ulcer Cleansing Soap and Water -Foul Odor after Cleansing No -Anesthetic Used 5% Lidocaine Gel #13 L Dooley -Current Size (cm) - Length 1.5 -Current Size (cm) - Width 1.7 -Current Size (cm) - Depth 0.1 -Total Square Cm 2.55 -Photo Taken Yes -Exudate Amt Small -Exudate Type Serosanguineous -Wound Margin Distinct, Outline Attached -Granulation Amt Large (67-100%) -Granulation Quality Red -Necrosis Amt Small (1-33%) -Necrotic Tissue Type Adherent Slough -Structure Exposed N/A -Texture (Felisa-wound Skin Appearance) Localized Edema ,Scarring -Moisture (Felisa-wound Skin Appearance) Dry/Scaly -Color (Felisa-wound Skin Appearance) Hemosiderin Staining -Temperature (Felisa-wound Skin No Abnormality Appearance) (Pt Warm) -Tenderness on Palpation (Felsia-wound No Skin Appearance) -Ulcer Cleansing Soap and Water -Foul Odor after Cleansing No -Anesthetic Used 5% Lidocaine Gel Right Calf (cm) 45 42 45.6 Right Ankle (cm) 27 34.5 Left Calf (cm) 49 43 50 Left Ankle (cm) 32 36.5 WC - Nurse 2 - General Ulcer CM Notes Start: 04/04/22 14:42 Freq: Status: Active Protocol: Activity Type Activity Date Activity User E-sign Co-sign Detail Recorded Client Recorded Date Recorded By Document 04/04/22 15:17 MW [id number] 04/04/22 15:37 MW Document 04/10/22 16:28 PL [id number] 04/10/22 16:31 PL Document 04/29/22 15:28 [id number] 04/29/22 15:40 JF 04/04/22 04/10/22 04/29/22 15:17 16:28 15:28 Wound Center Nurse 2 #12 LEFT LATERAL LE -Time 15:22 -Correct Patient Yes -Correct Side, Site, Position Yes -Correct Procedure Yes -Procedure Performed Yes No -Type of Procedure Debridement -Clinical Debridement Epidermis / Dermis -Tissue Removed Epidermis -Post Debridement (cm) - Length 2.5 -Post Debridement (cm) - Width 4.0 -Post Debridement (cm) - Depth 0.1 -Total Square (Post) (cm) 10.00 -Area of Debridement (cm) - Length 2.5 -Area of Debridement (cm) - Width 4.0 -Total Square (Area) (cm) 10.00 -Tunneling No -Undermining/Tunneling No -Circular Undermining No -Wound/Ulcer Outcome Not Healed Healed- Epithelialized -Ulcer Cleansing Rinsed/ Irrigated with Saline -Foul Odor after Cleansing No -Bioengineered Tissue No -Bleeding Controlled with Pressure -Treatment Response Procedure Tolerated Well -Offloading No -Debridement - Open, 1st 20sq cm No #11 Right lateral lower extremity -Time 15:17 -Correct Patient Yes -Correct Side, Site, Position Yes -Correct Procedure Yes -Procedure Performed Yes -Type of Procedure Debridement -Clinical Debridement Epidermis / Dermis -Tissue Removed Epidermis -Post Debridement (cm) - Length 5.5 -Post Debridement (cm) - Width 7.0 -Post Debridement (cm) - Depth 0.1 -Total Square (Post) (cm) 38.50 -Area of Debridement (cm) - Length 5.5 -Area of Debridement (cm) - Width 7.0 -Total Square (Area) (cm) 38.50 -Tunneling No -Undermining/Tunneling No -Circular Undermining No -Wound/Ulcer Outcome Not Healed -Ulcer Cleansing Rinsed/ Irrigated with Saline -Foul Odor after Cleansing No -Bioengineered Tissue No -Bleeding Controlled with Pressure -Treatment Response Procedure Tolerated Well -Offloading No -Debridement - Open, 1st 20sq cm Yes -Debridement, Open, ea addt'l 20sq cm 4 or part thereof #10 Right post calf -Time 15:19 15:49 -Correct Patient Yes Yes -Correct Side, Site, Position Yes Yes -Correct Procedure Yes Yes -Procedure Performed Yes Yes -Type of Procedure Debridement Debridement -Clinical Debridement Epidermis / Subcutaneous Dermis -Tissue Removed Epidermis Subcutaneous -Post Debridement (cm) - Length 5.0 4.9 -Post Debridement (cm) - Width 5.0 10 -Post Debridement (cm) - Depth 0.1 0.1 -Total Square (Post) (cm) 25.00 49.0 -Area of Debridement (cm) - Length 5.0 4.9 -Area of Debridement (cm) - Width 5.0 10 -Total Square (Area) (cm) 25.00 49.0 -Tunneling No No -Undermining/Tunneling No No -Circular Undermining No No -Wound/Ulcer Outcome Not Healed Not Healed -Ulcer Cleansing Rinsed/ Rinsed/ Irrigated with Irrigated with Saline Saline -Foul Odor after Cleansing No No -Bioengineered Tissue No No -Bleeding Controlled with Pressure -Treatment Response Procedure Tolerated Well -Debridement - Open, 1st 20sq cm No -Debridement - Subq, 1st 20sq cm Yes -Debridement, SubQ, ea addt'l 20sq cm 2 or part thereof #9 Right 2nd toe cluster -Time 15:20 -Correct Patient Yes -Correct Side, Site, Position Yes -Correct Procedure Yes -Procedure Performed Yes No -Type of Procedure Debridement -Clinical Debridement Epidermis / Dermis -Tissue Removed Epidermis -Post Debridement (cm) - Length 6.0 -Post Debridement (cm) - Width 4.0 -Post Debridement (cm) - Depth 0.1 -Total Square (Post) (cm) 24.00 -Area of Debridement (cm) - Length 6.0 -Area of Debridement (cm) - Width 4.0 -Total Square (Area) (cm) 24.00 -Tunneling No -Undermining/Tunneling No -Circular Undermining No -Wound/Ulcer Outcome Not Healed -Ulcer Cleansing Rinsed/ Irrigated with Saline -Foul Odor after Cleansing No -Bioengineered Tissue No -Bleeding Controlled with Pressure -Treatment Response Procedure Tolerated Well -Offloading No -Debridement - Open, 1st 20sq cm No #8 Right Lower Dooley -Time 15:49 -Correct Patient Yes -Correct Side, Site, Position Yes -Correct Procedure Yes -Procedure Performed Yes -Type of Procedure Debridement -Clinical Debridement Subcutaneous -Tissue Removed Subcutaneous -Post Debridement (cm) - Length 1.0 -Post Debridement (cm) - Width 8.5 -Post Debridement (cm) - Depth 0.1 -Total Square (Post) (cm) 8.50 -Area of Debridement (cm) - Length 1.0 -Area of Debridement (cm) - Width 8.5 -Total Square (Area) (cm) 8.50 -Tunneling No -Undermining/Tunneling No -Circular Undermining No -Wound/Ulcer Outcome Not Healed -Ulcer Cleansing Rinsed/ Irrigated with Saline -Foul Odor after Cleansing No -Bioengineered Tissue No -Debridement - Subq, 1st 20sq cm No #14 L Lat Ankle -Time 15:31 -Correct Patient Yes -Correct Side, Site, Position Yes -Correct Procedure Yes -Procedure Performed Yes -Type of Procedure Incision & Drainage -Clinical Debridement Subcutaneous -Tissue Removed Subcutaneous -Post Debridement (cm) - Length 6.2 -Post Debridement (cm) - Width 8.4 -Post Debridement (cm) - Depth 0.1 -Total Square (Post) (cm) 52.08 -Area of Debridement (cm) - Length 6.2 -Area of Debridement (cm) - Width 8.4 -Total Square (Area) (cm) 52.08 -Tunneling No -Undermining/Tunneling No -Circular Undermining No -Wound/Ulcer Outcome Not Healed -Ulcer Cleansing Rinsed/ Irrigated with Saline -Foul Odor after Cleansing No -Bioengineered Tissue No -Bleeding Controlled with Pressure -Treatment Response Procedure Tolerated Well -Offloading No -Debridement - Subq, 1st 20sq cm No #13 L Do[place] -Time 15:36 -Correct Patient Yes -Correct Side, Site, Position Yes -Correct Procedure Yes -Procedure Performed Yes -Type of Procedure Debridement -Clinical Debridement Subcutaneous -Tissue Removed Subcutaneous -Post Debridement (cm) - Length 2.8 -Post Debridement (cm) - Width 2.2 -Post Debridement (cm) - Depth 0.1 -Total Square (Post) (cm) 6.16 -Area of Debridement (cm) - Length 2.8 -Area of Debridement (cm) - Width 2.2 -Total Square (Area) (cm) 6.16 -Tunneling No -Undermining/Tunneling No -Circular Undermining No -Wound/Ulcer Outcome Not Healed -Ulcer Cleansing Rinsed/ Irrigated with Saline -Foul Odor after Cleansing No -Bioengineered Tissue No -Bleeding Controlled with Pressure -Treatment Response Procedure Tolerated Well -Offloading No -Debridement - Subq, 1st 20sq cm Yes -Debridement, SubQ, ea addt'l 20sq cm 2 or part thereof Pain Scale: 0-10 Numeric Is Patient Pain Free? Yes Yes Yes WC - Nurse 3 - General Ulcer D/C NN Start: 04/04/22 14:42 Freq: Status: Active Protocol: Activity Type Activity Date Activity User E-sign Co-sign Detail Recorded Client Recorded Date Recorded By Document 04/04/22 15:45 BM [id number] 04/04/22 15:47 BMF Document 04/10/22 16:28 PL [id number] 04/10/22 16:31 PL Edit Result 04/10/22 16:28 PL (1) [id number] 04/10/22 16:33 PL (1) #10 Right post calf - Ulcer Cleansing => Soap and Water - Primary Dressing Applied => Aquacel AG 4x4, => Optilok 8x12 - Aquacel AG 4x4 => 1 - Optilok 8x12 => 1 #8 Right Lower [place] - Ulcer Cleansing => Soap and Water - Foul Odor after Cleansing => No - Other Dressing => Aquacel Ag, Super => Absorb BLE - Multi-Layered Wrap Application => Multi-Layer Comp - => Bilat ($) Discharge Condition => Stable Ambulatory Status => AmbulatoryReji 04/04/22 04/10/22 15:45 16:28 Wound Care Nurse 3 #12 LEFT LATERAL LE -Primary Dressing Applied NonAdherent Contact Layer, Optilok 8x12 -Other Dressing DRSG PER MT RN -Optilok 8x12 4 #11 Right lateral lower extremity -Primary Dressing Applied NonAdherent Contact Layer, Optilok 8x12 -Other Covering 3M/DRSGS PER MT RN -Optilok 8x12 0 #10 Right post calf -Ulcer Cleansing Soap and Water -Primary Dressing Applied NonAdherent Aquacel AG 4x4, Contact Layer, Optilok 8x12 Optilok 8x12 -Other Dressing 3M/DRSGS PER MT RN -Aquacel AG 4x4 1 -Optilok 8x12 0 1 #9 Right 2nd toe cluster -Primary Dressing Applied NonAdherent Contact Layer, Optilok 8x12 -Other Dressing 3M, DRSGS PER MT RN -Optilok 8x12 0 #8 Right Lower [place] -Ulcer Cleansing Soap and Water -Foul Odor after Cleansing No -Other Dressing Aquacel Ag, Super Absorb BLE -Multi-Layered Wrap Application Multi-Layer Multi-Layer Comp - Bilat ($ Comp - Bilat ($ ) ) -Other 3M'S PER MT RN Treatment Response Procedure Tolerated Well Pain Scale: 0-10 Numeric Is Patient Pain Free? Yes Yes WC - Visit Discharge Discharge Condition Stable Stable Ambulatory Status Ambulatory,Cane Ambulatory,Cane Transportation Private Auto Accompanied by Facility Type Home Health Assessment/Plan Assessment/Plan (1) Wound of right lower extremity: CODE(S): S81.801A - Unspecified open wound, right lower leg, initial encounter (2) Ulcer of right second toe with fat layer exposed: CODE(S): L97.512 - Non-pressure chronic ulcer of other part of right foot with fat layer exposed (3) Edema of both lower extremities: CODE(S): R60.0 - Localized edema (4) Lymphedema of both lower extremities: CODE(S): I89.0 - Lymphedema, not elsewhere classified (5) Diabetes mellitus type 2 in obese: CODE(S): E11.69 - Type 2 diabetes mellitus with other specified complication; E66.9 - Obesity, unspecified PLAN: Plan Patient was evaluated at the wound healing center today. Wound care to the right second toe, keep this area dry to prevent maceration by placing gauze between toes and changing when they become moistened. To the left anterior leg and left lateral ankle wounds place collagen hydrogel covered with adaptic and topped with super absorbers before lightly placing 3M 2 layer wraps for compression. 3M 2 layer wraps to both the right and left leg to be done moderate amount of pressure. To be changed 3 times per week. Has home health. He sleeps in a chair because of his back problems, therefore that also contributes to his edema.? He does not elevate his legs at all because it causes him back pain.? He sleeps in his chair with his feet on the floor.? Stressed the importance of elevating legs and lying flat several times throughout the day to help decrease the swelling, even for 10 minutes a few times per day, but he states he has tried that and he continues too much back pain when doing this. Encouraged patient to try to elevate legs with a small step stool to see if this would help with the edema. Vascular studies obtained on 04/24/22. Venous studies unremarkable. Will refer to Dr. Cedillo for further evaluation. Stressed to the patient that his main issue is not elevating his legs and the the dependency is causing the edema. We will never be able to resolve all his edema, especially with the non compliance to elevated. He went to the lymphedema clinic and had a discussion with Beth. She states he is really struggling with this and states he doesn't have help at home except for the home health nurses. Follow up 1 week.
== END 2022-05-03 23:59 | disposition home or self-care (01) ==
LOC: WC 15:00
PROVIDERS: PCP Preventive Medicine Occupational Medicine; Referring Provider Nurse Practitioner Family; Visit Provider Nurse Practitioner Family
DX: E11.621 Type 2 diabetes mellitus with foot ulcer (principal); L97.511 Non-pressure chronic ulcer of other part of right foot limited to breakdown of skin; L97.512 Non-pressure chronic ulcer of other part of right foot with fat layer exposed; L97.321 Non-pressure chronic ulcer of left ankle limited to breakdown of skin; Z79.4 Long term (current) use of insulin; R60.0 Localized edema; I10 Essential (primary) hypertension; I89.0 Lymphedema, not elsewhere classified; E78.00 Pure hypercholesterolemia, unspecified; E66.9 Obesity, unspecified; Z79.82 Long term (current) use of aspirin; Z79.899 Other long term (current) drug therapy; Z95.1 Presence of aortocoronary bypass graft; Z96.651 Presence of right artificial knee joint
CPT/HCPCS: 11042; 11045; 29581; 93923; 93970; 97597; 97598

== ENCOUNTER 2022-05-27 13:45 | Outpatient (RCR) | payer BC, SELFPAY ==
[2022-05-04 00:32] VITALS: BP 138/42; PULSE 67; RESP 22; TEMP 36.4
[2022-05-13 14:15] VITALS: TEMP 36.1
--- NOTE | 2022-05-13 16:09 | PN.PCM_ITS ---
History of Present Illness Date of Service: 05/13/22 Chief Complaint: Swelling of legs and feet with open sores on lower legs b ilaterally History of Wound: Patient is 82 year old male who presents today for evaluation of sores that he has on his lower legs bilaterally and his bilateral lower leg edema. He states he has had these sores awhile. His states that he refuses to wear any type of compression and he has had the sores at least a few months. They haven't been putting much on them. His PCP referred him to the wound center for further evaluation. 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 He is unsure if he had CHF. He has had severe edema of his lower legs for the past couple years. He doesn't like to wear compression because it is difficult to wear shoes. He is wearing special shoes with velcro and his feet barely fit into them. He was hospitalized at [facility] for a toe infection a couple months and he saw Dr. Fairchild there. He denies being told that he has lymphedema. He sleeps in a chair at home because it hurts his back to lay flat. Venous studies obtained 04/24/22 - Chronic venous changes are noted in the right sapheno-femoral junction. The right great saphenous vein has been previously harvested from the proximal thigh to the mid-calf. The accessory saphenous vein at the left knee level is incompetent. The rest of the study is negative. Arterial studies 04/24/22 - Biphasic Doppler waveforms are noted at ankle level bilaterally. Pulse-volume recordings appear diminished at digital level on the left, but satisfactory at all other levels bilaterally. The resting right ankle-brachial index could not be determined due to the non-compressibility of the vasculature. The resting left ankle-brachial index is normal. There is evidence of arterial calcification at ankle level on the right. There is no evidence of significant arterial occlusive disease at ankle level bilaterally. Digital-brachial indices were not determined on either side due to size issues. However, pulse-volume recordings suggest the presence of arterial occlusive disease at digital level on the left, though it cannot be quantified. Clinical correlation is advised. Left JERAD by dorsalis pedis = 1.26, Right non compressible. He saw Dr. Cedillo on 05/02/22 and he states that patient would like to try the conservative measures to treat his edema. If things do not resolve he may be willing to try a venogram. Wound care - Left anterior leg and lateral ankle, collagen hydrogel covered with adaptic and ABD. His right 2nd toe has a red area of maceration. Keep gauze between his toes and change when wet from drainage. 3M 2 layer wraps for compression bilaterally. He is wearing post surgical shoes so his feet can have compression and fit into a shoe. Today he denies fever, chills, nausea, vomiting. He states his appetite is good. Progress of Wound: Right anterior leg cluster and right posterior leg ulcers are superficial. His edema is worse today, +3-+4 pitting. He does not have weeping present at this time. Objective Data Objective Data Vital Signs: Vital Signs Temp Pulse Resp BP 96.9 F L 67 22 H 138/42 H 05/13/22 14:15 05/04/22 00:32 05/04/22 00:32 05/04/22 00:32 Charges/Coding Addendum Addendum: [id number] selective debridement Debridement Note Debridement Note Wound debrided: anterior leg cluster and posterior leg ulcer Laterality: Right Type of Debridement: Selective debridement Anesthesia Used: 5% Lidocaine Gel Depth: Down to and including healthy tissue and in the subcutaneous layer Percentage of wound debrided: 90 Instrument Used: 3mm curette Tissue Removed: Devitalized tissue and slough Severity: Fat Layer Exposed Amount of bleeding with debridement: Mild Bleeding Controlled with: Pressure Patient tolerated procedure: Patient tolerated procedure well Post-Debridement Measurements and Additional Note: Post-Debridement Measurements/Treatment - Nurse 1 - General Ulcer Assessment Start: 05/13/22 14:13 Freq: Status: Active Protocol: [email or web address].ERIC Activity Type Activity Date Activity User E-sign Co-sign Detail Recorded Client Recorded Date Recorded By Document 05/13/22 14:15 ISABEL [id number] 05/13/22 14:34 ISABEL 05/13/22 14:15 - Today's Visit Information Type of service Follow-up Visit (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 Any new allergies or adverse reactions No Had a fall/change in ADL's that may No increase risk of falls Signs or symptoms of abuse and/or No neglect since last visit Have you been in the hospital since your No last visit? Has dressing in place as prescribed Yes Has compression in place as prescribed N/A Has offloadiing in place as prescribed N/A Experienced any changes in pain level or No management Left Footwear Surgical Shoe with pressure relief insole Right Footwear Surgical Shoe with pressure relief insole Pain Scale: 0-10 Numeric Is Patient Pain Free? Yes WC - Nurse 1 - General Ulcer Measurement Start: 05/13/22 14:13 Freq: Status: Active Protocol: Activity Type Activity Date Activity User E-sign Co-sign Detail Recorded Client Recorded Date Recorded By Document 05/13/22 14:15 ISABEL [id number] 05/13/22 14:34 ISAEBL 05/13/22 14:15 Wound Center Nurse 1 #14 L Lat Ankle -Combined with other wound No -Current Size (cm) - Length 3.5 -Current Size (cm) - Width 2 -Current Size (cm) - Depth 0.1 -Total Square Cm 7.0 -Date of Last Picture (Recall this 05/13/22 field) -Photo Taken Yes -Tunneling No -Undermining/Tunneling No -Circular Undermining No -Change in Wound Grade/Stage No -Exudate Amt Medium -Exudate Type Serosanguineous -Granulation Amt Small (1-33%) -Granulation Quality N/A -Slough/Fibrin Yes -Necrosis Amt Small (1-33%) -Necrotic Tissue Type Adherent Slough -Structure Exposed N/A -Texture (Felisa-wound Skin Appearance) Assessed -Moisture (Felisa-wound Skin Appearance) Assessed -Color (Felisa-wound Skin Appearance) No Abnormality, Assessed -Temperature (Felisa-wound Skin No Abnormality Appearance) (Pt Warm) -Tenderness on Palpation (Felisa-wound No Skin Appearance) -Ulcer Cleansing Rinsed/ Irrigated with Saline -Foul Odor after Cleansing No -Anesthetic Used 5% Lidocaine Gel -Wound Comment(s) ULCERATIVE #13 L Dooley -Combined with other wound No -Current Size (cm) - Length 1.5 -Current Size (cm) - Width 1.6 -Current Size (cm) - Depth 0.1 -Total Square Cm 2.40 -Date of Last Picture (Recall this 05/13/22 field) -Photo Taken Yes -Tunneling No -Undermining/Tunneling No -Circular Undermining No -Change in Wound Grade/Stage No -Exudate Amt Medium -Exudate Type Serosanguineous -Wound Margin Distinct, Outline Attached -Granulation Amt Small (1-33%) -Granulation Quality [place],Red -Slough/Fibrin Yes -Necrosis Amt Small (1-33%) -Necrotic Tissue Type Adherent Slough -Structure Exposed N/A -Texture (Felisa-wound Skin Appearance) No Abnormality, Assessed -Moisture (Felisa-wound Skin Appearance) No Abnormality, Assessed -Color (Felisa-wound Skin Appearance) No Abnormality, Assessed -Temperature (Felisa-wound Skin No Abnormality Appearance) (Pt Warm) -Tenderness on Palpation (Felisa-wound No Skin Appearance) -Ulcer Cleansing Rinsed/ Irrigated with Saline -Foul Odor after Cleansing No -Anesthetic Used 5% Lidocaine Gel #11 Right lateral lower extremity -Combined with other wound No #10 Right post calf -Combined with other wound No -Current Size (cm) - Length 1 -Current Size (cm) - Width 1.4 -Current Size (cm) - Depth 0.1 -Total Square Cm 1.4 -Date of Last Picture (Recall this 05/13/22 field) -Photo Taken Yes -Tunneling No -Undermining/Tunneling No -Circular Undermining No -Change in Wound Grade/Stage No -Exudate Amt Medium -Exudate Type Serosanguineous -Wound Margin Distinct, Outline Attached -Granulation Amt Small (1-33%) -Granulation Quality Hyper- granulation, [place] -Slough/Fibrin Yes -Necrosis Amt Small (1-33%) -Necrotic Tissue Type Adherent Slough -Structure Exposed N/A -Texture (Felisa-wound Skin Appearance) No Abnormality, Assessed -Moisture (Felisa-wound Skin Appearance) No Abnormality, Assessed -Color (Felisa-wound Skin Appearance) No Abnormality, Assessed -Temperature (Felisa-wound Skin No Abnormality Appearance) (Pt Warm) -Tenderness on Palpation (Felisa-wound No Skin Appearance) -Ulcer Cleansing Rinsed/ Irrigated with Saline -Foul Odor after Cleansing No -Anesthetic Used 5% Lidocaine Gel #9 Right 2nd toe cluster -Combined with other wound No -Current Size (cm) - Length 0.1 -Current Size (cm) - Width 0.1 -Current Size (cm) - Depth 0.1 -Total Square Cm 0.01 -Photo Taken Yes -Tunneling No -Undermining/Tunneling No -Circular Undermining No -Change in Wound Grade/Stage No -Exudate Amt None Present -Granulation Amt None Present (0 %) -Granulation Quality N/A -Slough/Fibrin No -Necrosis Amt None Present (0 %) -Structure Exposed N/A -Texture (Felisa-wound Skin Appearance) No Abnormality, Assessed -Moisture (Felisa-wound Skin Appearance) No Abnormality, Assessed -Color (Felisa-wound Skin Appearance) No Abnormality, Assessed -Temperature (Felisa-wound Skin No Abnormality Appearance) (Pt Warm) -Tenderness on Palpation (Felisa-wound No Skin Appearance) -Ulcer Cleansing Rinsed/ Irrigated with Saline -Foul Odor after Cleansing No -Anesthetic Used 5% Lidocaine Gel -Wound Comment(s) HARD DRY SCALES WC - Nurse 2 - General Ulcer CM Notes Start: 05/13/22 14:13 Freq: Status: Active Protocol: Activity Type Activity Date Activity User E-sign Co-sign Detail Recorded Client Recorded Date Recorded By Document 05/13/22 15:25 DARWIN [id number] 05/13/22 15:34 DARWIN 05/13/22 15:25 Wound Center Nurse 2 #14 L Lat Ankle -Correct Patient No -Correct Side, Site, Position No -Correct Procedure No -Procedure Performed No -Wound/Ulcer Outcome Not Healed #13 L Dooley -Correct Patient No -Correct Side, Site, Position No -Correct Procedure No -Procedure Performed No -Wound/Ulcer Outcome Not Healed #11 Right lateral lower extremity -Correct Patient No -Correct Side, Site, Position No -Correct Procedure No -Procedure Performed No -Wound/Ulcer Outcome Not Healed #10 Right post calf -Time 15:33 -Correct Patient Yes -Correct Side, Site, Position Yes -Correct Procedure Yes -Procedure Performed Yes -Type of Procedure Debridement -Clinical Debridement Epidermis / Dermis -Tissue Removed Epidermis, Dermis -Post Debridement (cm) - Length 1.7 -Post Debridement (cm) - Width 2.5 -Post Debridement (cm) - Depth 0.1 -Total Square (Post) (cm) 4.25 -Area of Debridement (cm) - Length 1.7 -Area of Debridement (cm) - Width 2.5 -Total Square (Area) (cm) 4.25 -Tunneling No -Undermining/Tunneling No -Circular Undermining No -Wound/Ulcer Outcome Not Healed -Ulcer Cleansing Rinsed/ Irrigated with Saline -Foul Odor after Cleansing No -Bioengineered Tissue No -Bleeding Controlled with Pressure -Treatment Response Procedure Tolerated Well -Debridement - Open, 1st 20sq cm No #9 Right 2nd toe cluster -Correct Patient No -Correct Side, Site, Position No -Correct Procedure No -Procedure Performed No -Wound/Ulcer Outcome Not Healed #8 Right Lower Dooley -Time 15:31 -Correct Patient Yes -Correct Side, Site, Position Yes -Correct Procedure Yes -Procedure Performed Yes -Type of Procedure Debridement -Clinical Debridement Epidermis / Dermis -Tissue Removed Epidermis, Dermis -Post Debridement (cm) - Length 2.0 -Post Debridement (cm) - Width 6.1 -Post Debridement (cm) - Depth 0.1 -Total Square (Post) (cm) 12.20 -Area of Debridement (cm) - Length 2.0 -Area of Debridement (cm) - Width 6.1 -Total Square (Area) (cm) 12.20 -Tunneling No -Undermining/Tunneling No -Circular Undermining No -Wound/Ulcer Outcome Not Healed -Ulcer Cleansing Rinsed/ Irrigated with Saline -Foul Odor after Cleansing No -Bioengineered Tissue No -Bleeding Controlled with Pressure -Treatment Response Procedure Tolerated Well -Offloading No -Debridement - Open, 1st 20sq cm Yes Pain Scale: 0-10 Numeric Is Patient Pain Free? Yes WC - Nurse 3 - General Ulcer D/C NN Start: 05/13/22 14:13 Freq: Status: Active Protocol: Activity Type Activity Date Activity User E-sign Co-sign Detail Recorded Client Recorded Date Recorded By Document 05/13/22 14:15 ISABEL [id number] 05/13/22 14:34 AK Document 05/13/22 16:02 AK [id number] 05/13/22 16:05 AK 05/13/22 05/13/22 14:15 16:02 Vital Signs Temperature (97.8 F-99.1 F) 96.9 F L Temperature Source Temporal Pain Scale: 0-10 Numeric Is Patient Pain Free? Yes Yes Wound Care Nurse 3 #14 L Lat Ankle -Ulcer Cleansing Rinsed/ Irrigated with Saline -Foul Odor after Cleansing No -Negative Pressure Wound Therapy N/A -Primary Dressing Applied C Hydrogel ($), NonAdherent Contact Layer -Other Dressing ABD #13 L Dooley -Ulcer Cleansing Rinsed/ Irrigated with Saline -Foul Odor after Cleansing No -Negative Pressure Wound Therapy N/A -Other Dressing hydrogel adaptic ABD #11 Right lateral lower extremity -Ulcer Cleansing Rinsed/ Irrigated with Saline -Foul Odor after Cleansing No -Negative Pressure Wound Therapy N/A -Other Dressing hydrogel adaptic ABD #10 Right post calf -Ulcer Cleansing Rinsed/ Irrigated with Saline -Foul Odor after Cleansing No -Negative Pressure Wound Therapy N/A -Other Dressing hydrogel adaptic ABD #9 Right 2nd toe cluster -Primary Dressing Covered/Secured with Dry Gauze & Roll Gauze, Secured with Tape #8 Right Lower Dooley -Ulcer Cleansing Rinsed/ Irrigated with Saline -Foul Odor after Cleansing No -Negative Pressure Wound Therapy N/A -Other Dressing hydrogel adaptic ABD bilateral -Lotion applied to leg before No compression wrap -Multi-Layered Wrap Application Multi-Layer Comp - Bilat ($ ) WC - Visit Discharge Discharge Condition Stable Ambulatory Status Ambulatory,Cane Transportation Private Auto Medication Reconcilliation completed & Yes provided to patient/care provider Clinical Summary of Care Provided Yes Assessment/Plan Assessment/Plan (1) Wound of right lower extremity: CODE(S): S81.801A - Unspecified open wound, right lower leg, initial encounter (2) Ulcer of right second toe with fat layer exposed: CODE(S): L97.512 - Non-pressure chronic ulcer of other part of right foot with fat layer exposed (3) Edema of both lower extremities: CODE(S): R60.0 - Localized edema (4) Lymphedema of both lower extremities: CODE(S): I89.0 - Lymphedema, not elsewhere classified (5) Diabetes mellitus type 2 in obese: CODE(S): E11.69 - Type 2 diabetes mellitus with other specified complication; E66.9 - Obesity, unspecified PLAN: Plan Patient was evaluated at the wound healing center today. Wound care to the right second toe, keep this area dry to prevent maceration by placing gauze between toes and changing when they become moistened. To the right anterior leg cluster and right posterior leg ulcer place collagen hydrogel covered with adaptic and topped with super absorbers before lightly placing 3M 2 layer wraps for compression. 3M 2 layer wraps to both the right and left leg to be done moderate amount of pressure. To be changed 3 times per week. Has home health. He seems to be getting new blisters when the 3 M wraps are placed either too tightly or with inconsistent pressure. We need to improve his edema so we can get him into some sort of compression that he can manage at home. He sleeps in a chair because of his back problems, therefore that also contributes to his edema.? He does not elevate his legs at all because it causes him back pain.? He sleeps in his chair with his feet on the floor.? Stressed the importance of elevating legs and lying flat several times throughout the day to help decrease the swelling, even for 10 minutes a few times per day, but he states he has tried that and he continues too much back pain when doing this. Encouraged patient to try to elevate legs with a small step stool to see if this would help with the edema. Vascular studies obtained on 04/24/22. Venous studies unremarkable. He saw Dr. Cedillo on 05/02/22 and the patient would like to do conservative treatment for now. Stressed to the patient that his main issue is not elevating his legs and the the dependency is causing the edema. We will never be able to resolve all his edema, especially with the non compliance to elevated. He went to the lymphedema clinic and had a discussion with Beth. She states he is really struggling with this and states he doesn't have help at home except for the home health nurses. We will order compression pumps to help with his lymphedema. Follow up 2 weeks.
[2022-05-27 13:39] VITALS: BP 132/59; PULSE 66; TEMP 36.4
--- NOTE | 2022-05-27 14:34 | PCM.WC.PN ---
History of Present Illness Date of Service: 05/27/22 Chief Complaint: Swelling of legs and feet with open sores on lower legs bilaterally History of Wound: Patient is 82 year old male who presents today for evaluation of sores that he has on his lower legs bilaterally and his bilateral lower leg edema. He states he has had these sores awhile. His states that he refuses to wear any type of compression and he has had the sores at least a few months. They haven't been putting much on them. His PCP referred him to the wound center for further evaluation. 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 He is unsure if he had CHF. He has had severe edema of his lower legs for the past couple years. He doesn't like to wear compression because it is difficult to wear shoes. He is wearing special shoes with velcro and his feet barely fit into them. He was hospitalized at [facility] for a toe infection a couple months and he saw Dr. Fairchild there. He denies being told that he has lymphedema. He sleeps in a chair at home because it hurts his back to lay flat. Venous studies obtained 04/24/22 - Chronic venous changes are noted in the right sapheno-femoral junction. The right great saphenous vein has been previously harvested from the proximal thigh to the mid-calf. The accessory saphenous vein at the left knee level is incompetent. The rest of the study is negative. Arterial studies 04/24/22 - Biphasic Doppler waveforms are noted at ankle level bilaterally. Pulse-volume recordings appear diminished at digital level on the left, but satisfactory at all other levels bilaterally. The resting right ankle-brachial index could not be determined due to the non-compressibility of the vasculature. The resting left ankle-brachial index is normal. There is evidence of arterial calcification at ankle level on the right. There is no evidence of significant arterial occlusive disease at ankle level bilaterally. Digital-brachial indices were not determined on either side due to size issues. However, pulse-volume recordings suggest the presence of arterial occlusive disease at digital level on the left, though it cannot be quantified. Clinical correlation is advised. Left JERAD by dorsalis pedis = 1.26, Right non compressible. He saw Dr. Cedillo on 05/02/22 and he states that patient would like to try the conservative measures to treat his edema. If things do not resolve he may be willing to try a venogram. Wound care - Left anterior leg and lateral ankle, collagen hydrogel covered with adaptic and ABD. His right 2nd toe has a red area of maceration. Keep gauze between his toes and change when wet from drainage. 3M 2 layer wraps for compression bilaterally. He is wearing post surgical shoes so his feet can have compression and fit into a shoe. Today he denies fever, chills, nausea, vomiting. He states his appetite is good. Progress of Wound: Right medial leg ulcer is superficial with a pink wound base. The other areas are healed. He has some areas of weeping from his bilateral anterior ankles where the skin is excoriated. His edema is +2-+3 pitting. Objective Data Objective Data Vital Signs: Vital Signs Temp Pulse Resp BP 97.5 F L 66 22 H 132/59 H 05/27/22 13:39 05/27/22 13:39 05/04/22 00:32 05/27/22 13:39 Charges/Coding Visit Charges Office Visits / Consults: [id number] OV L3 Est Physical Exam Const alert and oriented x3 HEENT normocephalic Lymph Lymphatic: lymphedema moderate Lymphatic Narrative: Bilateral lower extremity lymphedema with areas on anterior lower legs with excoriation and weeping. Resp normal respiratory effort Cardio regular rate and regular rhythm Extremity normal capillary refill Extremity Narrative: +3 pitting edema/lymphedema bilateral lower extremities. Skin Wound Narrative: ?He has an ulcer on his right anterior leg that the wound bed is pink, it from a blister.? He continues to have severe edema of his toes with maceration from drainage. Neuro oriented x3 Psych thought process normal Appearance: grossly normal Debridement Note Debridement Note No debridement was completed: No debridement was completed today Post-Debridement Measurements and Additional Note: Post-Debridement Measurements/Treatment WC - Nurse 1 - General Ulcer Assessment Start: 05/13/22 14:13 Freq: Status: Active Protocol: KIRSTIN.LOWEXT Activity Type Activity Date Activity User E-sign Co-sign Detail Recorded Client Recorded Date Recorded By Document 05/13/22 14:15 ISABEL [id number] 05/13/22 14:34 AK Document 05/27/22 13:39 KR [id number] 05/27/22 13:43 KR 05/13/22 05/27/22 14:15 13:39 - Today's Visit Information Type of service Follow-up Visit Follow-up Visit (Physician/[employer] (Physician/[employer]ER ) ) Arrival Mode Ambulatory,Cane Ambulatory,Cane Patient Identification Verified (Name & Yes Yes ) Patient Requires Transmission-Based No Precautions Safety Precautions NA Vital Signs Temperature (97.8 F-99.1 F) 96.9 F L 97.5 F L Temperature Source Temporal Temporal Pulse Rate (60-100) 66 Pulse Location Monitor Blood Pressure (90/60-120/80) 132/59 H Blood Pressure Mean (mm Hg) 83 Source Monitor Position Sitting Blood Pressure Location Left Arm History Since Last Visit- (Skip if this is Patient's initial visit) Have you changed medications since your No No last visit? Any new allergies or adverse reactions No No Had a fall/change in ADL's that may No No increase risk of falls Signs or symptoms of abuse and/or No No neglect since last visit Have you been in the hospital since your No No last visit? Has dressing in place as prescribed Yes Yes Has compression in place as prescribed N/A Yes Has offloadiing in place as prescribed N/A N/A Experienced any changes in pain level or No No management Left Footwear Surgical Shoe Regular Shoe with pressure relief insole Right Footwear Surgical Shoe Regular Shoe with pressure relief insole Pain Scale: 0-10 Numeric Is Patient Pain Free? Yes Yes - Nurse 1 - General Ulcer Measurement Start: 05/13/22 14:13 Freq: Status: Active Protocol: Activity Type Activity Date Activity User E-sign Co-sign Detail Recorded Client Recorded Date Recorded By Document 05/13/22 14:15 AK [id number] 05/13/22 14:34 AK Document 05/27/22 13:39 KR [id number] 05/27/22 13:43 KR 05/13/22 05/27/22 14:15 13:39 Wound Center Nurse 1 #14 L Lat Ankle -Combined with other wound No -Current Size (cm) - Length 3.5 3 -Current Size (cm) - Width 2 5 -Current Size (cm) - Depth 0.1 0.1 -Total Square Cm 7.0 15 -Date of Last Picture (Recall this 05/13/22 field) -Photo Taken Yes -Tunneling No -Undermining/Tunneling No -Circular Undermining No -Change in Wound Grade/Stage No -Exudate Amt Medium Medium -Exudate Type Serosanguineous Serosanguineous -Wound Margin Distinct, Outline Attached -Granulation Amt Small (1-33%) Medium (34-66%) -Granulation Quality N/A [place] -Slough/Fibrin Yes -Necrosis Amt Small (1-33%) None Present (0 %) -Necrotic Tissue Type Adherent Slough -Structure Exposed N/A -Texture (Felisa-wound Skin Appearance) Assessed Scarring -Moisture (Felisa-wound Skin Appearance) Assessed Assessed, Maceration, Weeping -Color (Felisa-wound Skin Appearance) No Abnormality, No Abnormality, Assessed Assessed -Temperature (Felisa-wound Skin No Abnormality No Abnormality Appearance) (Pt Warm) (Pt Warm) -Tenderness on Palpation (Felisa-wound No No Skin Appearance) -Ulcer Cleansing Rinsed/ Soap and Water Irrigated with Saline -Foul Odor after Cleansing No No -Anesthetic Used 5% Lidocaine 5% Lidocaine Gel Gel -Wound Comment(s) ULCERATIVE #13 L Dooley -Combined with other wound No -Current Size (cm) - Length 1.5 0.1 -Current Size (cm) - Width 1.6 0.1 -Current Size (cm) - Depth 0.1 0.1 -Total Square Cm 2.40 0.01 -Date of Last Picture (Recall this 05/13/22 field) -Photo Taken Yes -Tunneling No -Undermining/Tunneling No -Circular Undermining No -Change in Wound Grade/Stage No -Exudate Amt Medium Small -Exudate Type Serosanguineous Serosanguineous -Wound Margin Distinct, Distinct, Outline Outline Attached Attached -Granulation Amt Small (1-33%) Small (1-33%) -Granulation Quality [place],Red [place] -Slough/Fibrin Yes -Necrosis Amt Small (1-33%) None Present (0 %) -Necrotic Tissue Type Adherent Slough -Structure Exposed N/A -Texture (Felisa-wound Skin Appearance) No Abnormality, Assessed, Assessed Scarring -Moisture (Felisa-wound Skin Appearance) No Abnormality, Assessed, Assessed Maceration, Weeping -Color (Felisa-wound Skin Appearance) No Abnormality, No Abnormality, Assessed Assessed -Temperature (Felisa-wound Skin No Abnormality No Abnormality Appearance) (Pt Warm) (Pt Warm) -Tenderness on Palpation (Felisa-wound No No Skin Appearance) -Ulcer Cleansing Rinsed/ Soap and Water Irrigated with Saline -Foul Odor after Cleansing No No -Anesthetic Used 5% Lidocaine 5% Lidocaine Gel Gel #11 Right lateral lower extremity -Combined with other wound No -Current Size (cm) - Length 0.1 -Current Size (cm) - Width 0.1 -Current Size (cm) - Depth 0.1 -Total Square Cm 0.01 -Wound Margin Distinct, Outline Attached -Granulation Amt None Present (0 %) -Necrosis Amt None Present (0 %) -Texture (Felisa-wound Skin Appearance) Assessed, Scarring -Moisture (Felisa-wound Skin Appearance) No Abnormality, Assessed -Color (Felisa-wound Skin Appearance) No Abnormality, Assessed -Temperature (Felisa-wound Skin No Abnormality Appearance) (Pt Warm) -Tenderness on Palpation (Felisa-wound No Skin Appearance) -Ulcer Cleansing Soap and Water -Foul Odor after Cleansing No -Anesthetic Used 5% Lidocaine Gel #10 Right post calf -Combined with other wound No -Current Size (cm) - Length 1 0.1 -Current Size (cm) - Width 1.4 0.1 -Current Size (cm) - Depth 0.1 0.1 -Total Square Cm 1.4 0.01 -Date of Last Picture (Recall this 05/13/22 field) -Photo Taken Yes -Tunneling No -Undermining/Tunneling No -Circular Undermining No -Change in Wound Grade/Stage No -Exudate Amt Medium None Present -Exudate Type Serosanguineous -Wound Margin Distinct, Distinct, Outline Outline Attached Attached -Granulation Amt Small (1-33%) None Present (0 %) -Granulation Quality Hyper- granulation, [place] -Slough/Fibrin Yes -Necrosis Amt Small (1-33%) None Present (0 %) -Necrotic Tissue Type Adherent Slough -Structure Exposed N/A -Texture (Felisa-wound Skin Appearance) No Abnormality, Assessed, Assessed Scarring -Moisture (Felisa-wound Skin Appearance) No Abnormality, No Abnormality, Assessed Assessed -Color (Felisa-wound Skin Appearance) No Abnormality, No Abnormality, Assessed Assessed -Temperature (Felisa-wound Skin No Abnormality No Abnormality Appearance) (Pt Warm) (Pt Warm) -Tenderness on Palpation (Felisa-wound No No Skin Appearance) -Ulcer Cleansing Rinsed/ Soap and Water Irrigated with Saline -Foul Odor after Cleansing No No -Anesthetic Used 5% Lidocaine 5% Lidocaine Gel Gel #9 Right 2nd toe cluster -Combined with other wound No -Current Size (cm) - Length 0.1 0.1 -Current Size (cm) - Width 0.1 0.1 -Current Size (cm) - Depth 0.1 0.1 -Total Square Cm 0.01 0.01 -Photo Taken Yes -Tunneling No -Undermining/Tunneling No -Circular Undermining No -Change in Wound Grade/Stage No -Exudate Amt None Present -Granulation Amt None Present (0 %) -Granulation Quality N/A -Slough/Fibrin No -Necrosis Amt None Present (0 %) -Structure Exposed N/A -Texture (Felisa-wound Skin Appearance) No Abnormality, Assessed -Moisture (Felisa-wound Skin Appearance) No Abnormality, Assessed -Color (Felisa-wound Skin Appearance) No Abnormality, Assessed -Temperature (Felisa-wound Skin No Abnormality Appearance) (Pt Warm) -Tenderness on Palpation (Felisa-wound No Skin Appearance) -Ulcer Cleansing Rinsed/ Irrigated with Saline -Foul Odor after Cleansing No -Anesthetic Used 5% Lidocaine Gel -Wound Comment(s) HARD DRY SCALES #8 Right medial Lower [place] -Current Size (cm) - Length 0.1 -Current Size (cm) - Width 0.1 -Current Size (cm) - Depth 0.1 -Total Square Cm 0.01 WC - Nurse 2 - General Ulcer CM Notes Start: 05/13/22 14:13 Freq: Status: Active Protocol: Activity Type Activity Date Activity User E-sign Co-sign Detail Recorded Client Recorded Date Recorded By Document 05/13/22 15:25 DARWIN [id number] 05/13/22 15:34 Document 05/27/22 14:13 DARWIN [id number] 05/27/22 14:17 Edit Result 05/27/22 14:13 DARWIN (1) [id number] 05/27/22 14:22 JF (1) #8 Right medial Lower [place] - Post Debridement (cm) - Length => 1.4 - Post Debridement (cm) - Width => 0.5 - Post Debridement (cm) - Depth => 0.1 - Total Square (Post) (cm) => 0.70 - Area of Debridement (cm) - Length => 1.4 - Area of Debridement (cm) - Width => 0.5 - Total Square (Area) (cm) => 0.70 - Wound/Ulcer Outcome Healed- => Not Healed Epithelialized => 05/13/22 05/27/22 15:25 14:13 Wound Center Nurse 2 #14 L Lat Ankle -Correct Patient No No -Correct Side, Site, Position No No -Correct Procedure No No -Procedure Performed No No -Wound/Ulcer Outcome Not Healed Healed- Epithelialized #13 L [place] -Correct Patient No No -Correct Side, Site, Position No No -Correct Procedure No No -Procedure Performed No No -Wound/Ulcer Outcome Not Healed Healed- Epithelialized #11 Right lateral lower extremity -Correct Patient No No -Correct Side, Site, Position No No -Correct Procedure No No -Procedure Performed No No -Wound/Ulcer Outcome Not Healed Healed- Epithelialized #10 Right post calf -Time 15:33 -Correct Patient Yes No -Correct Side, Site, Position Yes No -Correct Procedure Yes No -Procedure Performed Yes No -Type of Procedure Debridement -Clinical Debridement Epidermis / Dermis -Tissue Removed Epidermis, Dermis -Post Debridement (cm) - Length 1.7 -Post Debridement (cm) - Width 2.5 -Post Debridement (cm) - Depth 0.1 -Total Square (Post) (cm) 4.25 -Area of Debridement (cm) - Length 1.7 -Area of Debridement (cm) - Width 2.5 -Total Square (Area) (cm) 4.25 -Tunneling No -Undermining/Tunneling No -Circular Undermining No -Wound/Ulcer Outcome Not Healed Healed- Epithelialized -Ulcer Cleansing Rinsed/ Irrigated with Saline -Foul Odor after Cleansing No -Bioengineered Tissue No -Bleeding Controlled with Pressure -Treatment Response Procedure Tolerated Well -Debridement - Open, 1st 20sq cm No #9 Right 2nd toe cluster -Correct Patient No No -Correct Side, Site, Position No No -Correct Procedure No No -Procedure Performed No No -Wound/Ulcer Outcome Not Healed Healed- Epithelialized #8 Right medial Lower [place] -Time 15:31 -Correct Patient Yes No -Correct Side, Site, Position Yes No -Correct Procedure Yes No -Procedure Performed Yes No -Type of Procedure Debridement -Clinical Debridement Epidermis / Dermis -Tissue Removed Epidermis, Dermis -Post Debridement (cm) - Length 2.0 1.4 -Post Debridement (cm) - Width 6.1 0.5 -Post Debridement (cm) - Depth 0.1 0.1 -Total Square (Post) (cm) 12.20 0.70 -Area of Debridement (cm) - Length 2.0 1.4 -Area of Debridement (cm) - Width 6.1 0.5 -Total Square (Area) (cm) 12.20 0.70 -Tunneling No -Undermining/Tunneling No -Circular Undermining No -Wound/Ulcer Outcome Not Healed Not Healed -Ulcer Cleansing Rinsed/ Irrigated with Saline -Foul Odor after Cleansing No -Bioengineered Tissue No -Bleeding Controlled with Pressure -Treatment Response Procedure Tolerated Well -Offloading No -Debridement - Open, 1st 20sq cm Yes Pain Scale: 0-10 Numeric Is Patient Pain Free? Yes Yes WC - Nurse 3 - General Ulcer D/C NN Start: 05/13/22 14:13 Freq: Status: Active Protocol: Activity Type Activity Date Activity User E-sign Co-sign Detail Recorded Client Recorded Date Recorded By Document 05/13/22 14:15 ISABEL [id number] 05/13/22 14:34 AK Document 05/13/22 16:02 AK [id number] 05/13/22 16:05 AK 05/13/22 05/13/22 14:15 16:02 Vital Signs Temperature (97.8 F-99.1 F) 96.9 F L Temperature Source Temporal Pain Scale: 0-10 Numeric Is Patient Pain Free? Yes Yes Wound Care Nurse 3 #14 L Lat Ankle -Ulcer Cleansing Rinsed/ Irrigated with Saline -Foul Odor after Cleansing No -Negative Pressure Wound Therapy N/A -Primary Dressing Applied C Hydrogel ($), NonAdherent Contact Layer -Other Dressing ABD #13 L Dooley -Ulcer Cleansing Rinsed/ Irrigated with Saline -Foul Odor after Cleansing No -Negative Pressure Wound Therapy N/A -Other Dressing hydrogel adaptic ABD #11 Right lateral lower extremity -Ulcer Cleansing Rinsed/ Irrigated with Saline -Foul Odor after Cleansing No -Negative Pressure Wound Therapy N/A -Other Dressing hydrogel adaptic ABD #10 Right post calf -Ulcer Cleansing Rinsed/ Irrigated with Saline -Foul Odor after Cleansing No -Negative Pressure Wound Therapy N/A -Other Dressing hydrogel adaptic ABD #9 Right 2nd toe cluster -Primary Dressing Covered/Secured with Dry Gauze & Roll Gauze, Secured with Tape #8 Right medial Lower [place] -Ulcer Cleansing Rinsed/ Irrigated with Saline -Foul Odor after Cleansing No -Negative Pressure Wound Therapy N/A -Other Dressing hydrogel adaptic ABD bilateral -Lotion applied to leg before No compression wrap -Multi-Layered Wrap Application Multi-Layer Comp - Bilat ($ ) WC - Visit Discharge Discharge Condition Stable Ambulatory Status Ambulatory,Cane Transportation Private Auto Medication Reconcilliation completed & Yes provided to patient/care provider Clinical Summary of Care Provided Yes Assessment/Plan Assessment/Plan (1) Wound of right lower extremity: CODE(S): S81.801A - Unspecified open wound, right lower leg, initial encounter (2) Edema of both lower extremities: CODE(S): R60.0 - Localized edema (3) Lymphedema of both lower extremities: CODE(S): I89.0 - Lymphedema, not elsewhere classified (4) Diabetes mellitus type 2 in obese: CODE(S): E11.69 - Type 2 diabetes mellitus with other specified complication; E66.9 - Obesity, unspecified PLAN: Plan Patient was evaluated at the wound healing center today. Wound care to the right second toe, keep this area dry to prevent maceration by placing gauze between toes and changing when they become moistened. To the right anterior leg ulcer place adaptic and super absorber/ABD, along with super absorbers/ABDs over areas of excoriation. Will place a tubigrip and GLADYS wrap bilaterally for compression. He is having more drainage/seeping than he is admitting to having. He has been approved for home lymphedema compression pumps. These will hopefully help control some of the edema and help prevent the further blistering he has been experiencing. He sleeps in a chair because of his back problems, therefore that also contributes to his edema.? He does not elevate his legs at all because it causes him back pain.? He sleeps in his chair with his feet on the floor.? Stressed the importance of elevating legs and lying flat several times throughout the day to help decrease the swelling, even for 10 minutes a few times per day, but he states he has tried that and he continues too much back pain when doing this. Encouraged patient to try to elevate legs with a small step stool to see if this would help with the edema. Vascular studies obtained on 04/24/22. Venous studies unremarkable. He saw Dr. Cedillo and is being treated conservatively at this time. Stressed to the patient that his main issue is not elevating his legs and the the dependency is causing the edema. We will never be able to resolve all his edema, especially with the non compliance to elevated. He went to the lymphedema clinic and had a discussion with Beth. She states he is really struggling with this and states he doesn't have help at home except for the home health nurses. Follow up one week.
== END 2022-06-03 23:59 | disposition home or self-care (01) ==
LOC: WC 13:45
PROVIDERS: PCP Preventive Medicine Occupational Medicine; Referring Provider Nurse Practitioner Family; Visit Provider Nurse Practitioner Family
DX: E11.621 Type 2 diabetes mellitus with foot ulcer (principal); L97.512 Non-pressure chronic ulcer of other part of right foot with fat layer exposed; L97.821 Non-pressure chronic ulcer of other part of left lower leg limited to breakdown of skin; Z79.4 Long term (current) use of insulin; R60.0 Localized edema; E78.00 Pure hypercholesterolemia, unspecified; I10 Essential (primary) hypertension; I89.0 Lymphedema, not elsewhere classified; E66.9 Obesity, unspecified; Z79.82 Long term (current) use of aspirin; Z79.84 Long term (current) use of oral hypoglycemic drugs; Z79.899 Other long term (current) drug therapy
CPT/HCPCS: 29581; 97597; 99213; G0463

== ENCOUNTER 2022-06-24 13:15 | Outpatient (RCR) | payer BC, SELFPAY ==
[2022-06-04 00:15] VITALS: BP 132/59; PULSE 66; RESP 22; TEMP 36.4
[2022-06-10 13:21] VITALS: BP 168/90; PULSE 66; RESP 20; TEMP 36.4
--- NOTE | 2022-06-10 14:44 | PN.PCM_ITS ---
History of Present Illness Date of Service: 06/10/22 Chief Complaint: Swelling of legs and feet with open sores on lower legs b ilaterally History of Wound: Patient is 82 year old male who presents today for evaluation of sores that he has on his lower legs bilaterally and his bilateral lower leg edema. He states he has had these sores awhile. His states that he refuses to wear any type of compression and he has had the sores at least a few months. They haven't been putting much on them. His PCP referred him to the wound center for further evaluation. 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 He is unsure if he had CHF. He has had severe edema of his lower legs for the past couple years. He doesn't like to wear compression because it is difficult to wear shoes. He is wearing special shoes with velcro and his feet barely fit into them. He was hospitalized at [facility] for a toe infection a couple months and he saw Dr. Fairchild there. He denies being told that he has lymphedema. He sleeps in a chair at home because it hurts his back to lay flat. Venous studies obtained 04/24/22 - Chronic venous changes are noted in the right sapheno-femoral junction. The right great saphenous vein has been previously harvested from the proximal thigh to the mid-calf. The accessory saphenous vein at the left knee level is incompetent. The rest of the study is negative. Arterial studies 04/24/22 - Biphasic Doppler waveforms are noted at ankle level bilaterally. Pulse-volume recordings appear diminished at digital level on the left, but satisfactory at all other levels bilaterally. The resting right ankle-brachial index could not be determined due to the non-compressibility of the vasculature. The resting left ankle-brachial index is normal. There is evidence of arterial calcification at ankle level on the right. There is no evidence of significant arterial occlusive disease at ankle level bilaterally. Digital-brachial indices were not determined on either side due to size issues. However, pulse-volume recordings suggest the presence of arterial occlusive disease at digital level on the left, though it cannot be quantified. Clinical correlation is advised. Left JERAD by dorsalis pedis = 1.26, Right non compressible. He saw Dr. Cedillo on 05/02/22 and he states that patient would like to try the conservative measures to treat his edema. If things do not resolve he may be willing to try a venogram. Wound care - Left anterior leg and lateral ankle, collagen hydrogel covered with adaptic and ABD. His right 2nd toe has a red area of maceration. Keep gauze between his toes and change when wet from drainage. 3M 2 layer wraps for compression bilaterally. He is wearing post surgical shoes so his feet can have compression and fit into a shoe. Today he denies fever, chills, nausea, vomiting. He states his appetite is good. Progress of Wound: He has new blisters on his right and left anterior legs. He has received his compression boots but claims that they weren't given good instructions and he doesn't like them because they are causing the blistering on his legs. He said that the person who came out to instruct them on how to use the pumps was late and had to leave quickly to get to another appointment and she can only come out to the house that one time. He has extra parts that he doesn't know what to do with. His edema is +2-+3 pitting. He currently is not having any weeping. He refuses to elevate his legs in any way due to his back pain. Objective Data Objective Data Vital Signs: Vital Signs Temp Pulse Resp BP 97.6 F L 66 20 H 168/90 H 06/10/22 13:21 06/10/22 13:21 06/10/22 13:21 06/10/22 13:21 Charges/Coding Visit Charges Office Visits / Consults: 20995 OV L3 Est Physical Exam Const alert and oriented x3 HEENT normocephalic Lymph Lymphatic: lymphedema moderate Lymphatic Narrative: Bilateral lower extremity lymphedema with areas on anterior lower legs with excoriation and weeping. Resp normal respiratory effort Effort and Inspection: able to speak in complete sentences Cardio regular rate Extremity normal capillary refill Extremity Narrative: +3 pitting edema/lymphedema bilateral lower extremities. Skin Wound Narrative: He has new blisters on his right and left anterior legs. He continues to have severe edema of his toes with maceration from drainage with an odor. Neuro oriented x3 Psych thought process normal Appearance: grossly normal Debridement Note Debridement Note No debridement was completed: No debridement was completed today Post-Debridement Measurements and Additional Note: Post-Debridement Measurements/Treatment KIRSTIN - Nurse 1 - General Ulcer Assessment Start: 06/10/22 13:21 Freq: Status: Active Protocol: JUANITO Activity Type Activity Date Activity User E-sign Co-sign Detail Recorded Client Recorded Date Recorded By Document 06/10/22 13:21 DL [id number] 06/10/22 13:29 DL 06/10/22 13:21 WC - Today's Visit Information Type of service Follow-up Visit (Physician/CHART SNATCHER ) Arrival Mode Ambulatory Transfer Assistance None Patient Identification Verified (Name & Yes ) Patient Requires Transmission-Based No Precautions Vital Signs Temperature (97.8 F-99.1 F) 97.6 F L Temperature Source Temporal Pulse Rate (60-100) 66 Pulse Location Monitor Respiratory Rate (12-18) 20 H Respiratory rate source Observation Blood Pressure (90/60-120/80) 168/90 H Blood Pressure Mean (mm Hg) 116 Source Monitor History Since Last Visit- (Skip if this is Patient's initial visit) Have you changed medications since your No last visit? Any new allergies or adverse reactions No Had a fall/change in ADL's that may No increase risk of falls Signs or symptoms of abuse and/or No neglect since last visit Have you been in the hospital since your No last visit? Has dressing in place as prescribed Yes Has compression in place as prescribed Yes Has offloadiing in place as prescribed N/A Experienced any changes in pain level or No management Left Footwear Surgical Shoe with pressure relief insole Right Footwear Surgical Shoe with pressure relief insole Pain Scale: 0-10 Numeric Is Patient Pain Free? Yes KIRSTIN Nurse 1 - General Ulcer Measurement Start: 06/10/22 13:21 Freq: Status: Active Protocol: Activity Type Activity Date Activity User E-sign Co-sign Detail Recorded Client Recorded Date Recorded By Document 06/10/22 13:21 DL [id number] 06/10/22 13:29 DL 06/10/22 13:21 Wound Center Nurse 1 #15 LLE circ -Current Size (cm) - Length 4 -Current Size (cm) - Width 21 -Current Size (cm) - Depth 0.1 -Total Square Cm 84 -Photo Taken Yes -Exudate Amt Medium -Exudate Type Serosanguineous -Wound Margin Distinct, Outline Attached -Granulation Amt Large (67-100%) -Granulation Quality [place],Red -Necrosis Amt None Present (0 %) -Structure Exposed N/A -Texture (Felisa-wound Skin Appearance) Excoriation, Localized Edema ,Scarring -Moisture (Felisa-wound Skin Appearance) Weeping -Color (Felisa-wound Skin Appearance) Hemosiderin Staining -Temperature (Felisa-wound Skin No Abnormality Appearance) (Pt Warm) -Ulcer Cleansing Soap and Water -Foul Odor after Cleansing No -Anesthetic Used 4% Lidocaine Solution #8 Right medial Lower Dooley -Current Size (cm) - Length 5 -Current Size (cm) - Width 34 -Current Size (cm) - Depth 0.1 -Total Square Cm 170 -Photo Taken Yes -Exudate Amt Medium -Exudate Type Serosanguineous -Wound Margin Distinct, Outline Attached -Granulation Amt Large (67-100%) -Granulation Quality [place] -Necrosis Amt None Present (0 %) -Texture (Felisa-wound Skin Appearance) Excoriation, Localized Edema ,Scarring -Moisture (Felisa-wound Skin Appearance) Weeping -Color (Felisa-wound Skin Appearance) Hemosiderin Staining -Ulcer Cleansing Soap and Water -Foul Odor after Cleansing No -Anesthetic Used 4% Lidocaine Solution Right Calf (cm) 47.6 Right Ankle (cm) 35 Left Calf (cm) 49.5 Left Ankle (cm) 36 WC - Nurse 2 - General Ulcer CM Notes Start: 06/10/22 13:21 Freq: Status: Active Protocol: Activity Type Activity Date Activity User E-sign Co-sign Detail Recorded Client Recorded Date Recorded By Document 06/10/22 13:51 DARWIN [id number] 06/10/22 14:01 DARWIN 06/10/22 13:51 Wound Center Nurse 2 #15 LLE circ -Correct Patient No -Correct Side, Site, Position No -Correct Procedure No -Procedure Performed No -Wound/Ulcer Outcome Not Healed -Bioengineered Tissue No #8 Right medial Lower Dooley -Correct Patient No -Correct Side, Site, Position No -Correct Procedure No -Procedure Performed No -Wound/Ulcer Outcome Not Healed -Bioengineered Tissue No -Bleeding Controlled with Pressure -Treatment Response Procedure Tolerated Well -Offloading No Pain Scale: 0-10 Numeric Is Patient Pain Free? Yes WC - Nurse 3 - General Ulcer D/C NN Start: 06/10/22 13:21 Freq: Status: Active Protocol: Activity Type Activity Date Activity User E-sign Co-sign Detail Recorded Client Recorded Date Recorded By Document 06/10/22 14:30 DL [id number] 06/10/22 14:31 DL 06/10/22 14:30 Wound Care Nurse 3 #15 LLE circ -Ulcer Cleansing Soap and Water -Foul Odor after Cleansing No -Primary Dressing Applied NonAdherent Contact Layer -Other Dressing ABD -Primary Dressing Covered/Secured with Dry Gauze & Roll Gauze, Secured with Tape #8 Right medial Lower Dooley -Ulcer Cleansing Soap and Water -Foul Odor after Cleansing No -Primary Dressing Applied NonAdherent Contact Layer -Other Dressing ABD -Primary Dressing Covered/Secured with Dry Gauze & Roll Gauze, Secured with Tape Right -Compression Wrap Mandeep Wrap -Tubular Bandage Single Layer -Size of Tubigrip Used Size F -Size F ($) 1 Left -Compression Wrap Mandeep Wrap -Tubular Bandage Single Layer -Size of Tubigrip Used Size F -Size F ($) 1 Pain Scale: 0-10 Numeric Is Patient Pain Free? Yes WC - Visit Discharge Discharge Condition Stable Ambulatory Status Ambulatory, Crutches Transportation Private Auto Facility Type Home Health Orders Sent Yes Assessment/Plan Assessment/Plan (1) Wound of right lower extremity: CODE(S): S81.801A - Unspecified open wound, right lower leg, initial encounter (2) Edema of both lower extremities: CODE(S): R60.0 - Localized edema (3) Lymphedema of both lower extremities: CODE(S): I89.0 - Lymphedema, not elsewhere classified (4) Diabetes mellitus type 2 in obese: CODE(S): E11.69 - Type 2 diabetes mellitus with other specified complication; E66.9 - Obesity, unspecified PLAN: Plan Patient was evaluated at the wound healing center today. Wound care adaptic to right and left anterior leg blisters covered with gauze. Will place a tubigrip and MANDEEP wrap bilaterally for compression. He is having more drainage/seeping than he is admitting to having but is not able to change his wraps himself and his states she is not able to help him because of her herniated discs. He has been approved for home lymphedema compression pumps. He received his pumps but is having difficulties with it. We phoned the company and they will be reaching out to the patient to try and assist them with it. He sleeps in a chair because of his back problems, therefore that also contributes to his edema.? He does not elevate his legs at all because it causes him back pain.? He sleeps in his chair with his feet on the floor.? Stressed the importance of elevating legs and lying flat several times throughout the day to help decrease the swelling, even for 10 minutes a few times per day, but he states he has tried that and he continues too much back pain when doing this. Encouraged patient to try to elevate legs with a small step stool to see if this would help with the edema. Vascular studies obtained on 04/24/22. Venous studies unremarkable. He saw Dr. Cedillo and is being treated conservatively at this time. Stressed to the patient that his main issue is not elevating his legs and the the dependency is causing the edema. We will never be able to resolve all his edema, especially with the non compliance to elevated. He went to the lymphedema clinic and had a discussion with Beth. She states he is really struggling with this and states he doesn't have help at home except for the home health nurses. Follow up two weeks.
[2022-06-24 13:03] VITALS: BP 129/53; PULSE 65; RESP 16; TEMP 36.3
--- NOTE | 2022-06-24 15:17 | PCM.WC.PN ---
History of Present Illness Date of Service: 06/24/22 Chief Complaint: Swelling of legs and feet with open sores on lower legs bilaterally History of Wound: Patient is 82 year old male who presents today for evaluation of sores that he has on his lower legs bilaterally and his bilateral lower leg edema. He states he has had these sores awhile. His states that he refuses to wear any type of compression and he has had the sores at least a few months. They haven't been putting much on them. His PCP referred him to the wound center for further evaluation. 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 He is unsure if he had CHF. He has had severe edema of his lower legs for the past couple years. He doesn't like to wear compression because it is difficult to wear shoes. He is wearing special shoes with velcro and his feet barely fit into them. He was hospitalized at [facility] for a toe infection a couple months and he saw Dr. Fairchild there. He denies being told that he has lymphedema. He sleeps in a chair at home because it hurts his back to lay flat. Venous studies obtained 04/24/22 - Chronic venous changes are noted in the right sapheno-femoral junction. The right great saphenous vein has been previously harvested from the proximal thigh to the mid-calf. The accessory saphenous vein at the left knee level is incompetent. The rest of the study is negative. Arterial studies 04/24/22 - Biphasic Doppler waveforms are noted at ankle level bilaterally. Pulse-volume recordings appear diminished at digital level on the left, but satisfactory at all other levels bilaterally. The resting right ankle-brachial index could not be determined due to the non-compressibility of the vasculature. The resting left ankle-brachial index is normal. There is evidence of arterial calcification at ankle level on the right. There is no evidence of significant arterial occlusive disease at ankle level bilaterally. Digital-brachial indices were not determined on either side due to size issues. However, pulse-volume recordings suggest the presence of arterial occlusive disease at digital level on the left, though it cannot be quantified. Clinical correlation is advised. Left JERAD by dorsalis pedis = 1.26, Right non compressible. He saw Dr. Cedillo on 05/02/22 and he states that patient would like to try the conservative measures to treat his edema. If things do not resolve he may be willing to try a venogram. Wound care - Left anterior leg and lateral ankle, collagen hydrogel covered with adaptic and ABD. His right 2nd toe has a red area of maceration. Keep gauze between his toes and change when wet from drainage. 3M 2 layer wraps for compression bilaterally. He is wearing post surgical shoes so his feet can have compression and fit into a shoe. Today he denies fever, chills, nausea, vomiting. He states his appetite is good. Progress of Wound: He currently does not have any blisters on his legs. He has received his compression boots and we had a second person to come out and show him how to use them. He states that they are too difficult to use. He is not able to put them on himself and his is not able to assist much because of her bad back. He has not been wearing his compression stockings either. His edema is +3 pitting in his legs and his feet are +3-+4 . He currently is not having any weeping. He refuses to elevate his legs in any way due to his back pain. Objective Data Objective Data Vital Signs: Vital Signs Temp Pulse Resp BP O2 Del Method 97.4 F L 65 16 129/53 H Room Air 06/24/22 13:03 06/24/22 13:03 06/24/22 13:03 06/24/22 13:03 06/24/22 13:03 Oxygen Delivery Method Room Air Charges/Coding Visit Charges Office Visits / Consults: [id number] OV L3 Est Physical Exam Const alert and oriented x3 HEENT normocephalic Lymph Lymphatic: lymphedema moderate Lymphatic Narrative: Bilateral lower extremity lymphedema and toes on bilateral feet with elephantiasis. Resp normal respiratory effort Effort and Inspection: able to speak in complete sentences Cardio regular rate Extremity normal capillary refill Extremity Narrative: +3 pitting edema/lymphedema bilateral lower extremities. Skin Wound Narrative: He has new blisters on his right and left anterior legs. He continues to have severe edema of his toes with maceration from drainage with an odor. Neuro oriented x3 Psych thought process normal Appearance: grossly normal Debridement Note Debridement Note No debridement was completed: No debridement was completed today Post-Debridement Measurements and Additional Note: Post-Debridement Measurements/Treatment - Nurse 1 - General Ulcer Assessment Start: 06/10/22 13:21 Freq: Status: Active Protocol: JUANITO Activity Type Activity Date Activity User E-sign Co-sign Detail Recorded Client Recorded Date Recorded By Document 06/10/22 13:21 DL [id number] 06/10/22 13:29 DL Document 06/24/22 13:03 [facility] [id number] 06/24/22 13:10 BM 06/10/22 06/24/22 13:21 13:03 WC - Today's Visit Information Type of service Follow-up Visit Follow-up Visit (Physician/WOUND CARE RN (Physician/WOUND CARE RN ) ) Arrival Mode Ambulatory Ambulatory,Cane Transfer Assistance None None Accompanied by Patient Identification Verified (Name & Yes Yes ) Patient Requires Transmission-Based No No Precautions Vital Signs Temperature (97.8 F-99.1 F) 97.6 F L 97.4 F L Temperature Source Temporal Temporal Pulse Rate (60-100) 66 65 Pulse Location Monitor Monitor Respiratory Rate (12-18) 20 H 16 Respiratory rate source Observation Observation Oxygen Delivery Method Room Air Blood Pressure (90/60-120/80) 168/90 H 129/53 H Blood Pressure Mean (mm Hg) 116 78 Source Monitor Monitor Position Sitting Blood Pressure Location Left Arm History Since Last Visit- (Skip if this is Patient's initial visit) Have you changed medications since your No No last visit? Any new allergies or adverse reactions No No Had a fall/change in ADL's that may No No increase risk of falls Signs or symptoms of abuse and/or No No neglect since last visit Have you been in the hospital since your No No last visit? Has dressing in place as prescribed Yes No Has compression in place as prescribed Yes No Has offloadiing in place as prescribed N/A N/A Experienced any changes in pain level or No No management Left Footwear Surgical Shoe Surgical Shoe with pressure with pressure relief insole relief insole Right Footwear Surgical Shoe Surgical Shoe with pressure with pressure relief insole relief insole Pain Scale: 0-10 Numeric Is Patient Pain Free? Yes Yes KIRSTIN Maza Nurse 1 - General Ulcer Measurement Start: 06/10/22 13:21 Freq: Status: Active Protocol: Activity Type Activity Date Activity User E-sign Co-sign Detail Recorded Client Recorded Date Recorded By Document 06/10/22 13:21 DL [id number] 06/10/22 13:29 DL Document 06/24/22 13:03 [facility] [id number] 06/24/22 13:10 BM 06/10/22 06/24/22 13:21 13:03 Wound Center Nurse 1 #15 LLE circ -Combined with other wound No -Current Size (cm) - Length 4 0.1 -Current Size (cm) - Width 21 0.1 -Current Size (cm) - Depth 0.1 0.1 -Total Square Cm 84 0.01 -Date of Last Picture (Recall this 06/24/22 field) -Photo Taken Yes Yes -Epithelialization Large 67-100% -Tunneling No -Undermining/Tunneling No -Circular Undermining No -Exudate Amt Medium None Present -Exudate Type Serosanguineous -Wound Margin Distinct, Outline Attached -Granulation Amt Large (67-100%) -Granulation Quality [place],Red -Necrosis Amt None Present (0 %) -Structure Exposed N/A -Texture (Felisa-wound Skin Appearance) Excoriation, Assessed, Localized Edema Excoriation, ,Scarring Scarring -Moisture (Felisa-wound Skin Appearance) Weeping Assessed -Color (Felisa-wound Skin Appearance) Hemosiderin Assessed, Staining Erythema -Temperature (Felisa-wound Skin No Abnormality No Abnormality Appearance) (Pt Warm) (Pt Warm) -Tenderness on Palpation (Felisa-wound No Skin Appearance) -Ulcer Cleansing Soap and Water -Foul Odor after Cleansing No -Anesthetic Used 4% Lidocaine Solution #8 Right medial Lower [place] -Combined with other wound No -Current Size (cm) - Length 5 0.1 -Current Size (cm) - Width 34 0.1 -Current Size (cm) - Depth 0.1 0.1 -Total Square Cm 170 0.01 -Date of Last Picture (Recall this 06/24/22 field) -Photo Taken Yes Yes -Epithelialization None Present -Tunneling No -Undermining/Tunneling No -Circular Undermining No -Exudate Amt Medium -Exudate Type Serosanguineous -Wound Margin Distinct, Outline Attached -Granulation Amt Large (67-100%) -Granulation Quality [place] -Necrosis Amt None Present (0 %) -Texture (Felisa-wound Skin Appearance) Excoriation, Assessed, Localized Edema Scarring ,Scarring -Moisture (Felisa-wound Skin Appearance) Weeping Assessed -Color (Felisa-wound Skin Appearance) Hemosiderin Assessed, Staining Erythema -Temperature (Felisa-wound Skin No Abnormality Appearance) (Pt Warm) -Tenderness on Palpation (Felisa-wound No Skin Appearance) -Ulcer Cleansing Soap and Water -Foul Odor after Cleansing No -Anesthetic Used 4% Lidocaine Solution Lower Limb Edema Present Yes Right Calf (cm) 47.6 46.4 Right Ankle (cm) 35 37.6 Left Calf (cm) 49.5 50 Left Ankle (cm) 36 36 - Nurse 2 - General Ulcer CM Notes Start: 06/10/22 13:21 Freq: Status: Active Protocol: Activity Type Activity Date Activity User E-sign Co-sign Detail Recorded Client Recorded Date Recorded By Document 06/10/22 13:51 [id number] 06/10/22 14:01 Document 06/24/22 13:21 [id number] 06/24/22 13:29 06/10/22 06/24/22 13:51 13:21 Wound Center Nurse 2 #15 LLE circ -Correct Patient No No -Correct Side, Site, Position No No -Correct Procedure No No -Procedure Performed No No -Wound/Ulcer Outcome Not Healed Healed- Epithelialized -Bioengineered Tissue No #8 Right medial Lower [place] -Correct Patient No No -Correct Side, Site, Position No No -Correct Procedure No No -Procedure Performed No No -Wound/Ulcer Outcome Not Healed Healed- Epithelialized -Bioengineered Tissue No -Bleeding Controlled with Pressure -Treatment Response Procedure Tolerated Well -Offloading No Pain Scale: 0-10 Numeric Is Patient Pain Free? Yes Yes - Nurse 3 - General Ulcer D/C NN Start: 06/10/22 13:21 Freq: Status: Active Protocol: Activity Type Activity Date Activity User E-sign Co-sign Detail Recorded Client Recorded Date Recorded By Document 06/10/22 14:30 DL [id number] 06/10/22 14:31 DL Document 06/24/22 13:41 DL [id number] 06/24/22 13:41 DL 06/10/22 06/24/22 14:30 13:41 Wound Care Nurse 3 #15 LLE circ -Ulcer Cleansing Soap and Water -Foul Odor after Cleansing No -Primary Dressing Applied NonAdherent Contact Layer -Other Dressing ABD -Primary Dressing Covered/Secured with Dry Gauze & Roll Gauze, Secured with Tape #8 Right medial Lower [place] -Ulcer Cleansing Soap and Water -Foul Odor after Cleansing No -Primary Dressing Applied NonAdherent Contact Layer -Other Dressing ABD -Primary Dressing Covered/Secured with Dry Gauze & Roll Gauze, Secured with Tape Right -Compression Wrap Mandeep Wrap Mandeep Wrap -Tubular Bandage Single Layer Single Layer -Size of Tubigrip Used Size F Size E -Size E ($) 1 -Size F ($) 1 Left -Compression Wrap Mandeep Wrap Mandeep Wrap -Tubular Bandage Single Layer Single Layer -Size of Tubigrip Used Size F Size E -Size E ($) 1 -Size F ($) 1 Pain Scale: 0-10 Numeric Is Patient Pain Free? Yes Yes WC - Visit Discharge Discharge Condition Stable Stable Ambulatory Status Ambulatory, Ambulatory Crutches Transportation Private Auto Private Auto Facility Type Home Health Home Health Telephoned (if yes, spoke with:) Yes Orders Sent Yes Assessment/Plan Assessment/Plan (1) Wound of right lower extremity: CODE(S): S81.801A - Unspecified open wound, right lower leg, initial encounter (2) Edema of both lower extremities: CODE(S): R60.0 - Localized edema (3) Lymphedema of both lower extremities: CODE(S): I89.0 - Lymphedema, not elsewhere classified (4) Diabetes mellitus type 2 in obese: CODE(S): E11.69 - Type 2 diabetes mellitus with other specified complication; E66.9 - Obesity, unspecified (5) Elephantiasis: CODE(S): I89.0 - Lymphedema, not elsewhere classified PLAN: Plan Patient was evaluated at the wound healing center today. No wounds today. May need to place super absorbers to skin to help absorb drainage when he wears his compression. Will place a tubigrip and MANDEEP wrap bilaterally for compression. Instructed him that he may have to rewrap the MANDEEP wraps after he uses his compression pumps, to help with the compression on his legs since he doesn't wear the lymphedema wraps that were suggested by the lymphedema clinic. He has received his home lymphedema compression pumps. He should wear them for 1 hour a day. He continues to difficulties with it, even after a second person came out to educate both he and his about them. He sleeps in a chair because of his back problems, therefore that contributes to his edema.? He does not elevate his legs at all because it causes him back pain.? He sleeps in his chair with his feet on the floor.? Stressed the importance of elevating legs and lying flat several times throughout the day to help decrease the swelling, even for 10 minutes a few times per day, but he states he has tried that and he continues too much back pain when doing this. Encouraged patient to try to elevate legs with a small step stool to see if this would help with the edema. Vascular studies obtained on 04/24/22. Venous studies unremarkable. He saw Dr. Cedillo and is being treated conservatively at this time. Stressed to the patient that his main issue is not elevating his legs and the the dependency is causing the edema. We will never be able to resolve all his edema, especially with the non compliance to elevated. He went to the lymphedema clinic and had a discussion with Beth. She states he is really struggling with this and states he doesn't have help at home except for the home health nurses. He has not been wearing his compression stockings or using his compression pumps. I had an extensive conversation with both he and his that we have done everything we can do at the wound center for him but he has to do his part by actually doing what is prescribed. His states that maybe they will look into getting someone in the house to help put the pumps on so he will start using them. We are at a point that if he continues to be non compliant, we may need to discharge him from the wound healing center. Follow up 3-4 weeks.
== END 2022-07-03 23:59 | disposition home or self-care (01) ==
LOC: WC 13:15
PROVIDERS: PCP Preventive Medicine Occupational Medicine; Referring Provider Nurse Practitioner Family; Visit Provider Nurse Practitioner Family
DX: S81.801A Unspecified open wound, right lower leg, initial encounter (principal); E11.9 Type 2 diabetes mellitus without complications; Z79.4 Long term (current) use of insulin; S80.821A Blister (nonthermal), right lower leg, initial encounter; S80.822A Blister (nonthermal), left lower leg, initial encounter; X58.XXXA Exposure to other specified factors, initial encounter; R60.0 Localized edema; I10 Essential (primary) hypertension; E78.00 Pure hypercholesterolemia, unspecified; I89.0 Lymphedema, not elsewhere classified; M54.9 Dorsalgia, unspecified; E66.9 Obesity, unspecified; Z79.890 Hormone replacement therapy; Z79.899 Other long term (current) drug therapy; Z95.1 Presence of aortocoronary bypass graft; Z96.651 Presence of right artificial knee joint
CPT/HCPCS: 99213; 99214; G0463

== ENCOUNTER 2022-07-15 12:24 | Outpatient (RCR) | payer BC, SELFPAY ==
[2022-07-04 00:15] VITALS: BP 129/53; PULSE 65; RESP 16; TEMP 36.3
[2022-07-15 12:26] VITALS: BP 152/61; PULSE 70; RESP 18; TEMP 36.4
--- NOTE | 2022-07-15 14:06 | PCM.WC.PN ---
History of Present Illness Date of Service: 07/15/22 Chief Complaint: Swelling of legs and feet with open sores on lower legs bilaterally History of Wound: Patient is 82 year old male who presents today for evaluation of sores that he has on his lower legs bilaterally and his bilateral lower leg edema. He states he has had these sores awhile. His states that he refuses to wear any type of compression and he has had the sores at least a few months. They haven't been putting much on them. His PCP referred him to the wound center for further evaluation. 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 He is unsure if he had CHF. He has had severe edema of his lower legs for the past couple years. He doesn't like to wear compression because it is difficult to wear shoes. He is wearing special shoes with velcro and his feet barely fit into them. He was hospitalized at [facility] for a toe infection a couple months and he saw Dr. Fairchild there. He denies being told that he has lymphedema. He sleeps in a chair at home because it hurts his back to lay flat. Venous studies obtained 04/24/22 - Chronic venous changes are noted in the right sapheno-femoral junction. The right great saphenous vein has been previously harvested from the proximal thigh to the mid-calf. The accessory saphenous vein at the left knee level is incompetent. The rest of the study is negative. Arterial studies 04/24/22 - Biphasic Doppler waveforms are noted at ankle level bilaterally. Pulse-volume recordings appear diminished at digital level on the left, but satisfactory at all other levels bilaterally. The resting right ankle-brachial index could not be determined due to the non-compressibility of the vasculature. The resting left ankle-brachial index is normal. There is evidence of arterial calcification at ankle level on the right. There is no evidence of significant arterial occlusive disease at ankle level bilaterally. Digital-brachial indices were not determined on either side due to size issues. However, pulse-volume recordings suggest the presence of arterial occlusive disease at digital level on the left, though it cannot be quantified. Clinical correlation is advised. Left JERAD by dorsalis pedis = 1.26, Right non compressible. He saw Dr. Cedillo on 05/02/22 and he states that patient would like to try the conservative measures to treat his edema. If things do not resolve he may be willing to try a venogram. Wound care - Left anterior leg adaptic and ABD. His right 2nd toe has a red area of maceration. Keep gauze between his toes and change when wet from drainage. Tubigrip with GLADYS wrap for compression. He is wearing post surgical shoes so his feet can have compression and fit into a shoe. He now has lymphedema pumps that he has started to wear. He needs assistance getting them on. Today he denies fever, chills, nausea, vomiting. He states his appetite is good. Progress of Wound: He has a few areas of weepy on his right anterior leg only. He has been wearing his compression pumps for an hour every day since he was last seen at the wound center. His son comes over every evening and helps put the pumps on. The patient is able to remove them by himself. There is an improvement in his edema. His distal lower legs have decreased in size by 7 cm. He states that he is having increased urine output and he has lost 5-8 lbs since starting to regularly use the compression pumps. He unable to elevate his legs in any way due to his back pain. He is complaining of left heel pain on the bottom of his left heel, especially when it is palpated. It started over the past 2 weeks. He is having trouble putting weight on his heel. He sees Dr. Slater, land[employer] field technician, for his foot care. He denies any calf pain. Objective Data Objective Data Vital Signs: Vital Signs Temp Pulse Resp BP 97.6 F L 70 18 152/61 H 07/15/22 12:26 07/15/22 12:26 07/15/22 12:26 07/15/22 12:26 Charges/Coding Visit Charges Office Visits / Consults: [id number] OV L4 Est Physical Exam Const alert and oriented x3 HEENT normocephalic Lymph Lymphatic: lymphedema moderate Lymphatic Narrative: Bilateral lower extremity lymphedema and toes on bilateral feet with elephantiasis. Resp normal respiratory effort Effort and Inspection: able to speak in complete sentences Cardio regular rate Extremity normal capillary refill Extremity Narrative: +3 pitting edema/lymphedema bilateral lower extremities. Skin Skin Narrative: Right lower leg skin is dry and intact. No weeping. +3-+4 edema/lymphedema bilateral lower extremities. Left lower leg has areas that are weeping clear serous fluid. No obvious ulcers or blisters. Bilateral distal lower legs/ankles are significantly smaller in diameter (up to 7 cm each) since wearing his compression pumps. His feet continue to be edematous and his toes bilaterally have thick, moist sloughing skin from all the lymphedema. Able to actually see outline of the bottom of his feet because of the decrease in fluid retention. The sides of his feet are no longer touching the ground d/t the edema. Wound Narrative: His right leg has no wounds. He has several areas on his left leg that are weeping. No wounds that need debridement. Neuro oriented x3 Psych thought process normal Appearance: grossly normal Debridement Note Debridement Note No debridement was completed: No debridement was completed today Post-Debridement Measurements and Additional Note: Post-Debridement Measurements/Treatment WC - Nurse 1 - General Ulcer Assessment Start: 07/15/22 12:25 Freq: Status: Active Protocol: JUANITO Activity Type Activity Date Activity User E-sign Co-sign Detail Recorded Client Recorded Date Recorded By Document 07/15/22 12:26 PL [id number] 07/15/22 12:39 PL 07/15/22 12:26 - Today's Visit Information Type of service Follow-up Visit (Physician/[employer] ) Arrival Mode Cane Transfer Assistance None Patient Identification Verified (Name & Yes ) Patient Requires Transmission-Based No Precautions Safety Precautions NA Vital Signs Temperature (97.8 F-99.1 F) 97.6 F L Temperature Source Temporal Pulse Rate (60-100) 70 Respiratory Rate (12-18) 18 Blood Pressure (90/60-120/80) 152/61 H Blood Pressure Mean (mm Hg) 91 History Since Last Visit- (Skip if this is Patient's initial visit) Have you changed medications since your No last visit? Any new allergies or adverse reactions No Had a fall/change in ADL's that may No increase risk of falls Signs or symptoms of abuse and/or No neglect since last visit Have you been in the hospital since your No last visit? Has dressing in place as prescribed Yes Has compression in place as prescribed Yes Has offloadiing in place as prescribed Yes Experienced any changes in pain level or No management Pain Scale: 0-10 Numeric Is Patient Pain Free? Yes - Nurse 1 - General Ulcer Measurement Start: 07/15/22 12:25 Freq: Status: Active Protocol: Activity Type Activity Date Activity User E-sign Co-sign Detail Recorded Client Recorded Date Recorded By Document 07/15/22 12:26 PL [id number] 07/15/22 12:39 PL 07/15/22 12:26 Wound Center Nurse 1 Right Calf (cm) 42.5 Right Ankle (cm) 30 Left Calf (cm) 48 Left Ankle (cm) 31 WC - Nurse 2 - General Ulcer CM Notes Start: 07/15/22 12:25 Freq: Status: Active Protocol: Activity Type Activity Date Activity User E-sign Co-sign Detail Recorded Client Recorded Date Recorded By Document 07/15/22 12:57 [id number] 07/15/22 12:57 JF 07/15/22 12:57 Pain Scale: 0-10 Numeric Is Patient Pain Free? Yes - Nurse 3 - General Ulcer D/C NN Start: 07/15/22 12:25 Freq: Status: Active Protocol: Activity Type Activity Date Activity User E-sign Co-sign Detail Recorded Client Recorded Date Recorded By Document 07/15/22 13:52 PL [id number] 07/15/22 13:53 PL 07/15/22 13:52 Wound Care Nurse 3 bilateral -Tubular Bandage Single Layer -Size of Tubigrip Used Size E -Size E ($) 4 -Other 4 & 6 gladys wrap Pain Scale: 0-10 Numeric Is Patient Pain Free? Yes - Visit Discharge Discharge Condition Stable Ambulatory Status Ambulatory,Cane Assessment/Plan Assessment/Plan (1) Edema of both lower extremities: CODE(S): R60.0 - Localized edema (2) Lymphedema of both lower extremities: CODE(S): I89.0 - Lymphedema, not elsewhere classified (3) Diabetes mellitus type 2 in obese: CODE(S): E11.69 - Type 2 diabetes mellitus with other specified complication; E66.9 - Obesity, unspecified (4) Elephantiasis: CODE(S): I89.0 - Lymphedema, not elsewhere classified (5) Pain of left heel: CODE(S): M79.672 - Pain in left foot PLAN: Plan Patient was evaluated at the wound healing center today. No wounds today but has weeping on his left lower leg. Place adaptic over the area and cover with super absorber/ABD to skin to help absorb drainage when he wears his compression. Will place a tubigrip and GLADYS wrap bilaterally for compression. Instructed him that he may have to rewrap the GLADYS wraps after he uses his compression pumps. Instructed him to consider the lymphedema compression wraps that he has for his feet and legs, at least on the right leg since it is not weeping. He has received his home lymphedema compression pumps and he should wear them for 1 hour a day. He has been wearing them daily since his son has been assisting him with applying them. He sleeps in a chair because of his back problems, therefore that contributes to his edema.? He does not elevate his legs at all because it causes him back pain.? He sleeps in his chair with his feet on the floor.? Stressed the importance of elevating legs and lying flat several times throughout the day to help decrease the swelling, even for 10 minutes a few times per day, but he states he has tried that and he continues too much back pain when doing this. Encouraged patient to try to elevate legs with a small step stool to see if this would help with the edema. Vascular studies obtained on 04/24/22. Venous studies unremarkable. He saw Dr. Cedillo and is being treated conservatively at this time. He went to the lymphedema clinic and had a discussion with Beth. She states he is really struggling with this and states he doesn't have help at home except for the home health nurses. He has put in an effort since his last visit to try and wear his compression and to use his compression pumps and his legs have shown a decrease in his edema. Stressed to him to continue doing what he is doing because it is working. For his left heel pain, encouraged him to ice it for 20 minutes several times a day. He can freeze a water bottle and rub his foot/heel over it. He sees Dr. Slater and suggested that he call him for further evaluation of this pain. Follow up 2-3 weeks. Greater than 30 minutes spent with patient reviewing plan of care, educating and documenting.
== END 2022-08-03 23:59 | disposition home or self-care (01) ==
LOC: WC 12:24
PROVIDERS: PCP Preventive Medicine Occupational Medicine; Referring Provider Nurse Practitioner Family; Visit Provider Nurse Practitioner Family
DX: R60.0 Localized edema (principal); E11.9 Type 2 diabetes mellitus without complications; Z79.4 Long term (current) use of insulin; E78.00 Pure hypercholesterolemia, unspecified; M79.672 Pain in left foot; I10 Essential (primary) hypertension; I89.0 Lymphedema, not elsewhere classified; E66.9 Obesity, unspecified; Z79.82 Long term (current) use of aspirin; Z79.890 Hormone replacement therapy; Z79.899 Other long term (current) drug therapy; Z85.820 Personal history of malignant melanoma of skin; Z95.1 Presence of aortocoronary bypass graft; Z96.651 Presence of right artificial knee joint
CPT/HCPCS: 99214; G0463

== ENCOUNTER 2022-08-12 14:14 | Outpatient (RCR) | payer BC, SELFPAY ==
[2022-08-04 00:14] VITALS: BP 152/61; PULSE 70; RESP 18; TEMP 36.4
[2022-08-12 14:31] VITALS: BP 138/53; PULSE 81; TEMP 36.8
--- NOTE | 2022-08-12 15:47 | PCM.WC.PN ---
History of Present Illness Date of Service: 08/12/22 Chief Complaint: Swelling of legs and feet with open sores on lower legs bilaterally History of Wound: Patient is 82 year old male who presents today for evaluation of sores that he has on his lower legs bilaterally and his bilateral lower leg edema. He states he has had these sores awhile. His states that he refuses to wear any type of compression and he has had the sores at least a few months. They haven't been putting much on them. His PCP referred him to the wound center for further evaluation. 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 He is unsure if he had CHF. He has had severe edema of his lower legs for the past couple years. He doesn't like to wear compression because it is difficult to wear shoes. He is wearing special shoes with velcro and his feet barely fit into them. He was hospitalized at [facility] for a toe infection a couple months and he saw Dr. Fairchild there. He denies being told that he has lymphedema. He sleeps in a chair at home because it hurts his back to lay flat. Venous studies obtained 04/24/22 - Chronic venous changes are noted in the right sapheno-femoral junction. The right great saphenous vein has been previously harvested from the proximal thigh to the mid-calf. The accessory saphenous vein at the left knee level is incompetent. The rest of the study is negative. Arterial studies 04/24/22 - Biphasic Doppler waveforms are noted at ankle level bilaterally. Pulse-volume recordings appear diminished at digital level on the left, but satisfactory at all other levels bilaterally. The resting right ankle-brachial index could not be determined due to the non-compressibility of the vasculature. The resting left ankle-brachial index is normal. There is evidence of arterial calcification at ankle level on the right. There is no evidence of significant arterial occlusive disease at ankle level bilaterally. Digital-brachial indices were not determined on either side due to size issues. However, pulse-volume recordings suggest the presence of arterial occlusive disease at digital level on the left, though it cannot be quantified. Clinical correlation is advised. Left JERAD by dorsalis pedis = 1.26, Right non compressible. He saw Dr. Cedillo on 05/02/22 and he states that patient would like to try the conservative measures to treat his edema. If things do not resolve he may be willing to try a venogram. He now has lymphedema pumps that he has started to wear. He needs assistance getting them on. Today he denies fever, chills, nausea, vomiting. He states his appetite is good. Progress of Wound: He has an excoriated area on his left lateral leg that is weeping. His edema/lymphedema is improving with him using his lymphedema pumps daily. His feet and toes still have elephantiasis but his feet are less swollen. He has not made an appointment with a manufacturing scheduler for his left heel pain. Objective Data Objective Data Vital Signs: Vital Signs Temp Pulse Resp BP 98.2 F 81 18 138/53 H 08/12/22 14:31 08/12/22 14:31 08/04/22 00:14 08/12/22 14:31 Charges/Coding Visit Charges Office Visits / Consults: [id number] OV L3 Est Physical Exam Const alert and oriented x3 HEENT normocephalic Lymph Lymphatic: lymphedema moderate Lymphatic Narrative: Bilateral lower extremity lymphedema and toes on bilateral feet with elephantiasis. Resp normal respiratory effort and clear to auscultation bilaterally Effort and Inspection: able to speak in complete sentences Cardio regular rate and regular rhythm Extremity normal capillary refill Extremity Narrative: He has an excoriated area on his left lateral leg that is weeping. His edema/lymphedema is improving with him using his lymphedema pumps daily. His feet and toes still have elephantiasis but his feet are less swollen. Skin Skin Narrative: Right lower leg skin is dry and intact. No weeping. +3-+4 edema/lymphedema bilateral lower extremities. Left lower leg has areas that are weeping clear serous fluid. No obvious ulcers or blisters. Bilateral distal lower legs/ankles are significantly smaller in diameter (up to 7 cm each) since wearing his compression pumps. His feet continue to be edematous and his toes bilaterally have thick, moist sloughing skin from all the lymphedema. Able to actually see outline of the bottom of his feet because of the decrease in fluid retention. The sides of his feet are no longer touching the ground d/t the edema. Wound Narrative: His right leg has no wounds. He has several areas on his left leg that are weeping. No wounds that need debridement. Neuro oriented x3 Psych thought process normal Appearance: grossly normal Debridement Note Debridement Note No debridement was completed: No debridement was completed today Post-Debridement Measurements and Additional Note: Post-Debridement Measurements/Treatment [facility] Nurse 1 - General Ulcer Assessment Start: 08/12/22 14:26 Freq: Status: Active Protocol: JUANITO Activity Type Activity Date Activity User E-sign Co-sign Detail Recorded Client Recorded Date Recorded By Document 08/12/22 14:31 ISABEL [id number] 08/12/22 14:32 AR 08/12/22 14:31 WC - Today's Visit Information Type of service Follow-up Visit (Physician/[facility]ER ) Arrival Mode Ambulatory,Cane Patient Identification Verified (Name & Yes ) Patient Requires Transmission-Based No Precautions Safety Precautions NA Vital Signs Temperature (97.8 F-99.1 F) 98.2 F Temperature Source Temporal Pulse Rate (60-100) 81 Pulse Location Monitor Blood Pressure (90/60-120/80) 138/53 H Blood Pressure Mean (mm Hg) 81 Source Monitor History Since Last Visit- (Skip if this is Patient's initial visit) Have you changed medications since your No last visit? Any new allergies or adverse reactions No Had a fall/change in ADL's that may No increase risk of falls Signs or symptoms of abuse and/or No neglect since last visit Have you been in the hospital since your No last visit? Has dressing in place as prescribed Yes Has compression in place as prescribed Yes Has offloadiing in place as prescribed N/A Experienced any changes in pain level or No management Left Footwear Surgical Shoe with pressure relief insole Right Footwear Surgical Shoe with pressure relief insole Pain Scale: 0-10 Numeric Is Patient Pain Free? Yes [facility] Nurse 1 - General Ulcer Measurement Start: 08/12/22 14:26 Freq: Status: Active Protocol: Activity Type Activity Date Activity User E-sign Co-sign Detail Recorded Client Recorded Date Recorded By Document 08/12/22 14:31 ISABEL [id number] 08/12/22 14:32 ISABEL 08/12/22 14:31 Wound Center Nurse 1 Lower Limb Edema Present No Right Calf (cm) 39 Right Ankle (cm) 36 Left Calf (cm) 45 Left Ankle (cm) 33 KIRSTIN - Nurse 2 - General Ulcer CM Notes Start: 08/12/22 14:26 Freq: Status: Active Protocol: Activity Type Activity Date Activity User E-sign Co-sign Detail Recorded Client Recorded Date Recorded By Document 08/12/22 15:17 JF [id number] 08/12/22 15:18 JF 08/12/22 15:17 Pain Scale: 0-10 Numeric Is Patient Pain Free? Yes WC - Nurse 3 - General Ulcer D/C NN Start: 08/12/22 14:26 Freq: Status: Active Protocol: Activity Type Activity Date Activity User E-sign Co-sign Detail Recorded Client Recorded Date Recorded By Document 08/12/22 15:42 DL [id number] 08/12/22 15:44 DL 08/12/22 15:42 Wound Care Nurse 3 fili -Tubular Bandage Single Layer -Size of Tubigrip Used Size E -Size E ($) 2 Treatment Response Procedure Tolerated Well Pain Scale: 0-10 Numeric Is Patient Pain Free? Yes WC - Visit Discharge Discharge Condition Stable Ambulatory Status Ambulatory,Cane Transportation Private Auto Facility Type Home Health Notes: adaptic/abd to any weeping areas Orders Sent Yes Assessment/Plan Assessment/Plan (1) Edema of both lower extremities: CODE(S): R60.0 - Localized edema (2) Lymphedema of both lower extremities: CODE(S): I89.0 - Lymphedema, not elsewhere classified (3) Diabetes mellitus type 2 in obese: CODE(S): E11.69 - Type 2 diabetes mellitus with other specified complication; E66.9 - Obesity, unspecified (4) Elephantiasis: CODE(S): I89.0 - Lymphedema, not elsewhere classified (5) Pain of left heel: CODE(S): M79.672 - Pain in left foot PLAN: Plan Patient was evaluated at the wound healing center today. No wounds today but has weeping on his left lower leg. Place adaptic over the area and cover with super absorber/ABD to skin to help absorb drainage when he wears his compression. Will place a tubigrip and GLADYS wrap bilaterally for compression. Instructed him that he may have to rewrap the GLADYS wraps after he uses his compression pumps. Instructed him to consider the lymphedema compression wraps that he has for his feet and legs, at least on the right leg since it is not weeping. He has received his home lymphedema compression pumps and he should wear them for 1 hour a day. He has been wearing them daily since his son has been assisting him with applying them. There definitely is an improvement in his swelling since starting to use the pumps regularly. He sleeps in a chair because of his back problems, therefore that contributes to his edema.? He does not elevate his legs at all because it causes him back pain.? He sleeps in his chair with his feet on the floor.? Stressed the importance of elevating legs and lying flat several times throughout the day to help decrease the swelling, even for 10 minutes a few times per day, but he states he has tried that and he continues too much back pain when doing this. Encouraged patient to try to elevate legs with a small step stool to see if this would help with the edema. Vascular studies obtained on 04/24/22. Venous studies unremarkable. He saw Dr. Cedillo and is being treated conservatively at this time. He went to the lymphedema clinic and had a discussion with Beth. She states he is really struggling with this and states he doesn't have help at home except for the home health nurses. He has put in an effort since his last visit to try and wear his compression and to use his compression pumps and his legs have shown a decrease in his edema. Stressed to him to continue doing what he is doing because it is working. For his left heel pain, encouraged him to ice it for 20 minutes several times a day. He can freeze a water bottle and rub his foot/heel over it. He has not made an appointment with the manufacturing scheduler. Encouraged him to make an appointment. He has seen Dr. Slater in the past. Follow up 4 weeks.
== END 2022-09-03 23:59 | disposition home or self-care (01) ==
LOC: WC 14:14
PROVIDERS: PCP Preventive Medicine Occupational Medicine; Referring Provider Nurse Practitioner Family; Visit Provider Nurse Practitioner Family
DX: I89.0 Lymphedema, not elsewhere classified (principal); E11.9 Type 2 diabetes mellitus without complications; R60.0 Localized edema; E66.9 Obesity, unspecified; M79.672 Pain in left foot; I10 Essential (primary) hypertension; E78.00 Pure hypercholesterolemia, unspecified; Z79.82 Long term (current) use of aspirin; Z79.84 Long term (current) use of oral hypoglycemic drugs; Z79.899 Other long term (current) drug therapy
CPT/HCPCS: 99213; 99214; G0463